=== PATIENT | female | born 1990 | race African-American/Black ===

== ENCOUNTER → 2021-11-03 11:33 | Outpatient (CLI) | payer BC, SELFPAY ==
--- NOTE | ~2021-11-03 | US_ITS ---
EXAMINATION: US transvaginal DATE: 11/03/2021 12:10 INDICATION: Pelvic cramping, assess IUD placement TECHNIQUE: Multiple endovaginal sonographic images of the pelvis were obtained. COMPARISON: None. FINDINGS: The uterus measures 6.7 x 3.2 x 4.9 cm. The IUD appears to be positioned low in the uterus in the lower uterine segment. The endometrial complex measures 4 mm. The right ovary measures 2.6 x 1 .7 x 2.6 cm. The left ovary measures 2.7 x 1.8 x 2.1 cm. There is normal vascular flow in the ovaries . There is no free fluid in the pelvis. IMPRESSION: 1. IUD appears to be positioned in the lower uterine segment. Reviewed, dictated and finalized at location F. NATAL BREASTFEEDING ASSISTANT
== END ==
PROVIDERS: Visit Provider Nurse Practitioner
DX: Z30.431 Encounter for routine checking of intrauterine contraceptive device (principal)
CPT/HCPCS: 76830

== ENCOUNTER 2023-10-17 09:29 | Outpatient (CLI) | payer OTHER, BC, SELFPAY ==
--- NOTE | 2023-10-28 18:53 | WPDHOMESLEEP ---
Sleep Study - Home Unattended Date of Study: 10/17/23 Ordering Provider: JOHN PAUL Kwong-C Interpreting Provider: Trudi Yoon, DO Home Sleep Study Type: Watch PAT Height: 1.65 m Weight: 83.915 kg Body Mass Index: 30.7 Neck Circumference (inches): 14 [place]: 19 Reason for Sleep Study Loud snoring Sleep History The patient is a 33-year-old female with seasonal allergies that had a sleep study ordered by her primary care for evaluation of sleep apnea. The patient rarely awakens from sleep short of breath. She denies awakening at night with heartburn, belching or cough. She constantly snores loudly enough that others complain. She constantly has trouble sleeping when she has a cold. She rarely wakes up gasping for air throughout the night. She frequently has breathing problems at night observed by herself or others. She occasionally sweats excessively at night. She denies having heart palpitations or irregular heartbeats during the night. She constantly falls asleep during the day but never while driving. He denies sleep paralysis, cataplexy and hypnagogic / hypnopompic hallucinations. She constantly has trouble at school or work due to sleepiness. She denies feeling afraid of going to sleep. He denies having nightmares. She occasionally remembers her dreams. She constantly has thoughts racing through her mind. She denies feeling sad, depressed or anxious. She denies having muscular tension. She denies noticing parts of her body jerk. She denies kicking during the night. She denies having crawling and aching feelings in her legs and denies having leg pain during the night. She denies grinding her teeth during sleep and denies awakening with morning jaw pain. She denies being bothered by pain during the day and denies being awakened by pain during the night. He denies waking up feeling stiff in the morning. She denies waking up with sore or achy muscles. She rarely wakes up with pain in the neck, spine and joints. She goes to bed at midnight on weekdays and at 1:00 a.m. on the weekends. It takes her 15 minutes to fall asleep. She wakes up 3-4 times throughout the night to take a drink of water and is able to fall back asleep within 5-10 minutes. She wakes up at 6:00 a.m. on weekdays and at 9:00 a.m. on the weekends. She typically gets 5-6 hours of sleep per night. She will stay in bed for 5-10 minutes after waking up in the morning. She currently lives with her and 2 daughters. She denies consuming any caffeinated beverages within 2 hours of bedtime. She denies engaging in physical exercise before bedtime. She will read and watch television before falling asleep. She will take naps in the evening but they are not refreshing. She consumes caffeinated beverages 3 times per week. She denies tobacco, alcohol and recreational drug [facility] Surgical History Surgical History History of tonsillectomy (~2013) Family History Family History Father Diabetes mellitus Hypertension Mother Hypertension Grandparent Hypertension Grandparent Diabetes mellitus Hypertension Social History Social History Social History: Caffeine- coffee 1 cup daily Smoking status: Never smoker Alcohol intake: never Substance use: never Substance use type: does not use Do You Feel Safe in your Home?: Yes Lack of Transportation: No Lack of Food: Never True Current Housing: I Have Housing Concerned About Future Housing: No Difficulty Paying Gas/Electric Bills: No Difficulty Paying for Meds: No Currently Unemployed: No Education: Master's Degree or Higher Difficulty w/ Childcare or Family Care: No Living arrangements: with family Occupation/Education: occupation 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
[2023-10-28 18:54] VITALS: BMI 30.7
== END 2023-10-20 07:30 | disposition home or self-care (01) ==
LOC: ANHCSM 09:30
PROVIDERS: PCP Clinical Nurse Specialist; Visit Provider Clinical Nurse Specialist
DX: G47.10 Hypersomnia, unspecified (principal)
CPT/HCPCS: 95800

== ENCOUNTER 2024-01-02 08:31 | Outpatient (CLI) | payer OTHER, BC, SELFPAY ==
--- NOTE | 2024-01-12 16:11 | WPDSLEEPSTUD ---
Sleep Study Date of Study: 01/02/24 Ordering Provider: Carolyn Romero NP Interpreting Physician: Trudi Yoon DO Sleep Study Type: Polysomnogram Height: 1.65 m Weight: 83.915 kg Body Mass Index: 30.7 Neck Circumference (inches): 14 [place]: 19 Reason for Sleep Study Loud snoring Sleep History The patient is a 33-year-old female with seasonal allergies that had a sleep study ordered by her primary care for evaluation of sleep apnea. The patient rarely awakens from sleep short of breath. She denies awakening at night with heartburn, belching or cough. She constantly snores loudly enough that others complain. She constantly has trouble sleeping when she has a cold. She rarely wakes up gasping for air throughout the night. She frequently has breathing problems at night observed by herself or others. She occasionally sweats excessively at night. She denies having heart palpitations or irregular heartbeats during the night. She constantly falls asleep during the day but never while driving. He denies sleep paralysis, cataplexy and hypnagogic / hypnopompic hallucinations. She constantly has trouble at school or work due to sleepiness. She denies feeling afraid of going to sleep. He denies having nightmares. She occasionally remembers her dreams. She constantly has thoughts racing through her mind. She denies feeling sad, depressed or anxious. She denies having muscular tension. She denies noticing parts of her body jerk. She denies kicking during the night. She denies having crawling and aching feelings in her legs and denies having leg pain during the night. She denies grinding her teeth during sleep and denies awakening with morning jaw pain. She denies being bothered by pain during the day and denies being awakened by pain during the night. He denies waking up feeling stiff in the morning. She denies waking up with sore or achy muscles. She rarely wakes up with pain in the neck, spine and joints. She goes to bed at midnight on weekdays and at 1:00 a.m. on the weekends. It takes her 15 minutes to fall asleep. She wakes up 3-4 times throughout the night to take a drink of water and is able to fall back asleep within 5-10 minutes. She wakes up at 6:00 a.m. on weekdays and at 9:00 a.m. on the weekends. She typically gets 5-6 hours of sleep per night. She will stay in bed for 5-10 minutes after waking up in the morning. She currently lives with her and 2 daughters. She denies consuming any caffeinated beverages within 2 hours of bedtime. She denies engaging in physical exercise before bedtime. She will read and watch television before falling asleep. She will take naps in the evening but they are not refreshing. She consumes caffeinated beverages 3 times per week. She denies tobacco, alcohol and recreational drug use. [facility] Surgical History Surgical History History of tonsillectomy (~2013) Family History Family History Father Diabetes mellitus Hypertension Mother Hypertension Grandparent Hypertension Grandparent Diabetes mellitus Hypertension Social History Social History Social History: Caffeine- coffee 1 cup daily Smoking status: Never smoker Alcohol intake: never Substance use: never Substance use type: does not use Do You Feel Safe in your Home?: Yes Lack of Transportation: No Lack of Food: Never True Current Housing: I Have Housing Concerned About Future Housing: No Difficulty Paying Gas/Electric Bills: No Difficulty Paying for Meds: No Currently Unemployed: No Education: Master's Degree or Higher Difficulty w/ Childcare or Family Care: No Living arrangements: with family Occupation/Education: occupation 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
[2024-01-13 13:41] VITALS: BMI 30.7
== END 2024-01-03 07:05 | disposition home or self-care (01) ==
LOC: ANHCSM 08:32
PROVIDERS: PCP Clinical Nurse Specialist; Visit Provider Nurse Practitioner
DX: G47.33 Obstructive sleep apnea (adult) (pediatric) (principal); G47.61 Periodic limb movement disorder; G47.10 Hypersomnia, unspecified
CPT/HCPCS: 95810

== ENCOUNTER 2024-01-27 13:10 | Outpatient (CLI) | payer OTHER, BC, SELFPAY | END 2024-01-27 13:11 | disposition home or self-care (01) | LOC: ANHGOSHLAB 13:12 | PROVIDERS: PCP Clinical Nurse Specialist; Visit Provider Clinical Nurse Specialist | DX: G47.61 Periodic limb movement disorder (principal) | CPT/HCPCS: 36415; 82728 ==

== ENCOUNTER 2024-04-23 09:23 | Outpatient (CLI) | payer OTHER, BC, SELFPAY ==
[2024-04-23 18:55] LABS: Vitamin D 25 Hydroxy 41.8 ng/mL
[2024-04-23 19:04] LABS: Hemoglobin A1C 5.7 % (<5.7)
== END 2024-04-23 09:24 | disposition home or self-care (01) ==
LOC: ANHGOSHLAB 09:26
PROVIDERS: PCP Clinical Nurse Specialist; Visit Provider Clinical Nurse Specialist
DX: E55.9 Vitamin D deficiency, unspecified (principal); R73.9 Hyperglycemia, unspecified
CPT/HCPCS: 36415; 82306; 83036

== ENCOUNTER 2024-07-30 12:18 | Outpatient (CLI) | payer OTHER, BC, SELFPAY ==
--- NOTE | ~2024-07-30 | US_ITS ---
EXAMINATION: US OB <= 14 weeks fetus DATE: 07/30/2024 12:34 INDICATION: Encounter for supervision of normal TECHNIQUE: Real-time pelvic ultrasound utilizing both a transvaginal and transabdominal probe was pe rformed. The interpreting radiologist was not present for the study. COMPARISON: None. FINDINGS: The uterus measures 10.9 x 7.5 x 6.5 cm. There is an intrauterine gestational sac. A yolk sac and fe wili pole are identified. The crown rump length measures 2.4 cm, which correlates with an estimated ge stational age of 9 weeks and 0 days. heart motion is identified measuring 167 beats per minute (bpm) by M-mode Doppler. The right ovary is not visualized. The left ovary measures 3.6 x 2.4 x 2.7 cm. 2.6 similar anechoic c orpus luteum cyst in the left ovary. There is no free fluid in the pelvis. IMPRESSION: 1. Single living fetus with heart rate of 167 bpm. 2. Gestational age by ultrasound of 9 weeks 0 day(s) +/- 6 day(s) with ultrasound estimated date of delivery (MIGUEL) of 03/04/2025. Reviewed, dictated and finalized at location B. CE SALES CONSULTANT IMPRESSION: 1. Single living fetus with heart rate of 167 bpm. 2. Gestational age by ultrasound of 9 weeks 0 day(s) +/- 6 day(s) with ultraso und estimated date of delivery (MIGUEL) of 03/04/2025.
== END 2024-07-30 12:19 | disposition home or self-care (01) ==
LOC: GOSHIMG 12:19
PROVIDERS: PCP Clinical Nurse Specialist; Visit Provider Nurse Practitioner Obstetrics & Gynecology
DX: Z34.90 Encounter for supervision of normal pregnancy, unspecified, unspecified trimester (principal)
CPT/HCPCS: 76801

== ENCOUNTER 2024-09-10 11:39 | Outpatient (CLI) | payer OTHER, BC, SELFPAY ==
[2024-09-10 14:52] LABS: Add Urine Microscopic? YES; Appearance Urine Turbid (Clear); Bacteria Urine 2+ /hpf; Bilirubin Urine Negative (Negative); Blood Urine Negative (Negative); Color Urine Dark Yellow (Yellow); Glucose Urine UA Negative (Negative); Ketones Urine Trace mg/dL (Negative); Leukocyte Esterase Ur Negative LEU/UL (Negative); Need Manual Microscopic Reviewed; Nitrate Urine Negative (Negative); Protein Urine Trace mg/dL (Negative); Specific Grav Ur 1.028 (1.001-1.035); Squamous Epithelial Cell Urine Moderate /hpf (Few); Urobilinogen Urine 0.2 mg/dL (<2.0); WBC Urine 0-5 /hpf (0-3); pH Urine 5.5 (5.0-9.0)
[2024-09-10 14:53] LABS: Alanine Aminotransferase 21 U/L (6-35); Albumin Level 3.9 g/dL (3.5-5.1); Alkaline Phosphatase 57 U/L (38-126); Anion Gap 3 mmol/L (4-12); Aspartate Amino Transferase 30 U/L (14-36); Bilirubin,Total 0.5 mg/dL (0.2-1.3); Blood Urea Nitrogen 6 mg/dL (7-17); Calcium 9.1 mg/dL (8.4-10.2); Carbon Dioxide 23 mmol/L (22-30); Chloride 106 mmol/L (98-107); Estimated Glomerular Filt Rate > 60; Glucose 91 mg/dL (65-110); Potassium 3.7 mmol/L (3.4-5.0); RBC Urine 0-2 /hpf (0-2); Sodium 132 mmol/L (137-145); Vitamin D 25 Hydroxy 30.1 ng/mL
[2024-09-10 15:11] LABS: Hepatitis B Surface Antigen Negative (Negative)
[2024-09-10 15:21] LABS: Basophils Percent Auto 0.4 % (0.2-1.2); Eosinophils Absolute Auto 0.1 K/mm3 (0-0.3); Eosinophils Percent Auto 1.4 % (0-4.4); Hematocrit 34.5 % (37.0-47.0); Immature Granulocyte Absolute 0.06 K/mm3 (0.00-0.031); Immature Granulocyte Percent A 0.8 % (0-0.5); Immature Platelet Fraction Pct 2.1 % (0.9-11.2); Lymphocytes Absolute Auto 2.08 K/mm3 (0.9-3.2); Lymphocytes Percent Auto 26.4 % (18.3-44.2); Mean Corpuscular HGB Conc 34.8 g/dl (32-36); Mean Corpuscular Hemoglobin 29.5 pg (26-34); Mean Corpuscular Volume 84.8 fl (80-100); Monocytes Absolute Auto 0.5 K/mm3 (0.1-0.6); Monocytes Percent Auto 6.6 % (2.6-8.5); Neutrophils Absolute Auto 5.1 K/mm3 (1.3-6.7); Neutrophils Percent Auto 64.4 % (45.5-73.1); Platelet Count Result 343 k/mm3 (150-375); Red Blood Count 4.07 M/mm3 (4.2-5.4); Red Cell Distribution Width 12.4 % (11.5-14.5); White Blood Count 7.9 K/mm3 (4.5-10.0)
[2024-09-10 15:28] LABS: Hepatitis C Virus Antibody Negative (Negative)
[2024-09-10 15:44] LABS: Platelet Estimate Adequate (Adequate); Schistocytes None Seen
[2024-09-10 15:53] LABS: Cholesterol 202 mg/dL (0-200); HDL Direct 58 mg/dL; Triglycerides 176 mg/dL (<150)
[2024-09-10 16:00] LABS: HIV 1/2 Ab P24 Ag Result Negative (Negative)
[2024-09-10 16:04] LABS: LDL Cholesterol Direct 96 mg/dL
[2024-09-10 17:56] LABS: Hemoglobin A1C 5.4 % (<5.7)
[2024-09-10 19:20] LABS: Rapid Plasma Reagin Non-Reactive (NonReactive)
[2024-09-13 11:04] LABS: Hematocrit 36.3 % (35.0-45.0); Hemoglobin 11.9 g/dL (11.7-15.5); MCH 29.6 pg (27.0-33.0); MCV 90.3 fL (80.0-100.0); RDW 12.9 % (11.0-15.0); Red Blood Cell Count 4.02 Million/uL (3.80-5.10)
[2024-09-13 19:29] LABS: Varicella IgG Antibody 7.85 S/CO
== END 2024-09-10 11:40 | disposition home or self-care (01) ==
LOC: ANHGOSHLAB 11:42
PROVIDERS: PCP Clinical Nurse Specialist; Visit Provider Obstetrics & Gynecology
DX: E55.9 Vitamin D deficiency, unspecified (principal); Z34.90 Encounter for supervision of normal pregnancy, unspecified, unspecified trimester; R73.9 Hyperglycemia, unspecified
CPT/HCPCS: 36415; 80053; 80061; 81001; 82306; 83021; 83036; 85025; 85055; 86592; 86703; 86762; 86787; 86803; 86850; 86900; 86901; 87086; 87340; G0432

== ENCOUNTER 2024-10-25 08:15 | Outpatient (CLI) | payer BC, SELFPAY ==
--- OUTSIDE RECORDS SUMMARY | 2024-10-25 11:15 | XMS_ITS | Clinical Summary ---
Author Organization [facility] Address [address] [place] [address] Care Team Providers Care Thoracic Medicine Specialist Name Role Phone Treva Salazar MD Primary Care Provider [phone] Source Comments [facility],non-owned Affiliates and Associated Physician Practices is amultiple site organization consisting of ambulatory clinics and hospital sitesin [place], [place], [place] and [place]. This disclosure is being madepursuant to the Care Everywhere program and may not contain all information available regarding this patient. Last updated 05/29/18.25eight [facility] Allergies No known active allergies Medications * Be aware that medications may not be up to date on this document. Alwaysverify current medications with the patient. Medication Sig Dispensed Refills Start Date End Date Status Norethindrone Acet-Ethinyl Est (LOESTRIN 09/27, , PO) once daily. Active Immunizations Name Administration Dates Next Due DPT 04/28/1997, 4,03/06/1993,01/03/1993,07/26/19 92 HEP B VACCINE, PED/ADOL 04/17/2002,05/31/1997, HIB BOOSTER 12/05/1993,03/06/1993,01/03/1993 ,1992 MMR 04/28/1997,12/05/1993 PPD 04/15/2006,04/17/2002 TDAP (7yrs+) 04/15/2006 Social History Tobacco Use Types Packs/Day Years Used Date Smoking Tobacco: Never Assessed Sex and Gender Information Value Date Recorded Sex Assigned at Not on file Gender Identity Not on file Sexual Orientation Not on file Last Filed Vital Signs Vital Sign Reading Time Taken Comments Blood Pressure - - Pulse - - Temperature - - Respiratory Rate - - Oxygen Saturation - - Inhaled Oxygen Concentration - - Weight 60.6 kg (133 lb 9.6 oz) 12/09/2011 4:08 P M CDT Height - - Body Mass Index - - Plan of Treatment Health Maintenance Due Date Last Done Comments PAP SMEAR 1992 HIV SCREENING 2007 HEPATITIS C SCREENING 03/06/2010 DTAP/TDAP/TD VACCINES (7 - Td or Tdap) 04/15/2016 04/15/2006, 04/28/1997, 12/05/1993, Additional history exists COVID-19 VACCINE (2023- season) 2024 INFLUENZA VACCINE (#1) 2024 DEPRESSION SCREENING 09/08/2024 ZOSTER VACCINE (1 of 2) 2042 HIB VACCINE Completed 12/05/1993, 02/07, 01/03/1993, Additional history exists HEPATITIS B VACCINE Completed 04/17/2002, 05/31/1997, 04/28/1997 HPV VACCINE Aged Out No longer eligi ble based on patient's age to complete this topic MENINGOCOCCAL (Group B) VACCINE Aged Out No longer eligible based on patient's age to complete this topic MENINGOCOCCAL VACCINE Aged Out No eliud jessy eligible based on patient's age to complete this topic PNEUMOCOCCAL VACCINE Aged Out No long er eligible based on patient's age to complete this topic Care Teams Thoracic Medicine Specialist Relationship Specialty Start Date End Date Treva Salazar MD PCP - General Pediatrics 12/09/11
--- OUTSIDE RECORDS SUMMARY | 2024-10-25 11:15 | XMS_ITS | Patient Health Summary ---
Author Organization [facility] Address [address] [place] [address] Care Team Providers Care Fashion Artist Name Role Phone Treva Salazar MD Primary Care Provider [phone] Note from [facility],non-owned Affiliates and Associated Physician Practices is amultiple site organization consisting of ambulatory clinics and hospital sitesin [place], [place], [place] and [place]. This disclosure is being madepursuant to the Care Everywhere program and may not contain all information available regarding this patient. Last updated 18.[facility] [employer] Allergies No known active allergies Medications * Be aware that medications may not be up to date on this document. Alwaysverify current medications with the patient. * Norethindrone Acet-Ethinyl Est (LOESTRIN 09/27, , PO) once daily. Immunizations * DPT(Given 04/28/1997, 12/05/1993, 03/06/1993, 01/03/1993, 1992) * HEP B VACCINE, PED/ADOL(Given 04/17/2002, 05/31/1997, 04/28/1997) * HIB BOOSTER(Given 12/05/1993, 03/06/1993, 01/03/1993, 1992) * MMR(Given 04/28/1997, 12/05/1993) * PPD(Given 04/15/2006, 04/17/2002) * TDAP (7yrs+)(Given 04/15/2006) Social History Tobacco Use Types Packs/Day Years [...] - - Body Mass Index - - Care Teams Fashion Artist Relationship Specialty Start Date End Date Treva Salazar MD PCP - General Pediatrics 12/09/11
--- OUTSIDE RECORDS SUMMARY | 2024-10-25 11:15 | XMS_ITS | Clinical Summary ---
Author Organization [facility] [address] - [address]22 Address [address] [address] Phone Care Team Providers Care Rubberizing Mechanic Name Role Phone Unavailable Primary Care Provider Unavailabl e Encounters Date Type Department Care Team Description 10/19/2024 External Device Data STL ABSTRACTION Provider, Abstract 10/19/2024 External Device Data STL ABSTRACTION Provider, Abstract 10/19/2024 External Device Data STL ABSTRACTION Provider, Abstract 10/18/2024 10:45 AM BARGE LOADER - 10/18/2024 11:59 PM BARGE LOADER Hospital Encounter [facility] 2022 Lani Caceres [address] [place] [phone] Arnoldo Ortiz MD Discharge Disposition: Home or Self Care from Last 3 Months Social History Tobacco Use Types Packs/Day Years Used Date Smoking Tobacco: Never Assessed Comments Unknown Sex and Gender Information Value Date Recorded Sex Assigned at Not on file Legal Sex Female 11:45 AM CDT Gender Identity Not on file Sexual Orientation Not on file Plan of Treatment Upcoming Encounters Date Type Department Care Team (Late st Contact Info) Description 11/15/2024 10:30 AM CDT Appointment [facility] Lani Caceres [address] [place] [phone] Vera Beasley MD [address] [place] [address] Health Maintenance Due Date Last Done Comments CERVICAL CANCER SCREENING 2022 INFLUENZA VACCINE (#1) 2024 08/10/2019 Preventative Visit- Commercial 09/08/2024 DTAP/TDAP/TD VACCINES (3 - T d or Tdap) 12/16/2029 12/17/2019, 04/15/2006 HEPATITIS B VACCINES Completed 04/17/2002, 05/31/1997, 04/28/1997 HPV VACCINES Aged Out No longer shania quintanilla based on patient's age to complete this topic Procedures Procedure Name Priority Date/Time Associated Diagnosis Comments US OB DETAIL SINGLE GEST Routine 10/18/2024 1:41 PM BARGE LOADER screening for malformation using ultrasonics from Last 3 Months Results * US OB DETAIL SINGLE GEST (10/18/2024 1:41 PM BARGE LOADER) Anatomical Region Laterality Modality Pelvis Ultrasound 10/18/2024 10:5 9 AM BARGE LOADER Narrative 10/18/2024 12:48 PM BARGE LOADER STL COMP ----- Pat. Name: ODESSA HOGAN Study Date: 10/18/2024 10:59am Pat. NO: [id number] Referring MD: ARNOLDO ORTIZ MD Site: [employer] Sales Engineer: Sarah Shah RDMS : 1990 Age: 34 ----- INDICATION ----- Anatomy Survey Maternal Obesity (BMI<40) Complicating CODING ----- Diagnoses Z3A.20: Weeks of gestation O99.212: Obesity complicating Z36.3: Encounter for screening for malformations Procedures 55094: Ultrasound, uterus, real time with image documentation, and maternal evaluation plus detailed anatomic examination, transabdominal approach HISTORY ----- OB History 1 MATERNAL ASSESSMENT ----- Physical Exam Weight 86 kg. BMI 31.62 kg/m METHOD ----- Transabdominal ultrasound examination ----- Gentile . Number of fetuses: 1 DATING ----- Method of dating: based on stated MIGUEL GA by prior assessment 20 w + 4 d MIGUEL by prior assessment: 03/03/2025 Ultrasound examination on: 10/18/2024 GA by U/S based upon: AC, BPD, EFW, Femur, HC GA by U/S 21 w + 1 d MIGUEL by U/S: 02/27/2025 Assigned: based on stated MIGUEL, selected on 10/18/2024 Assigned GA 20 w + 4 d Assigned MIGUEL: 03/03/2025 BIOMETRY ----- BPD 47.9 mm 20w 3d 46% Hadlock OFD 66.5 mm 22w 3d 95% Megan HC 186.0 mm 21w 0d 58% Hadlock Cerebellum tr 22.4 mm 21w 5d 79% Díaz Nuchal fold 4.2 mm AC 171.7 mm 22w 1d 88% Hadlock Femur 34.0 mm 20w 5d 45% Hadlock Humerus 35.2 mm 22w 1d 92% Megan HC / AC 1.08 8% Nicolaides Weight Calculation: EFW 420 g 21w 2d 85% Hadlock EFW (lb,oz) 0 lb 15 oz EFW by Hadlock ([id number]) Head / Face / Neck Biometry: River Rafting Guide 4.8 mm CM 3.4 mm 6% Nicolaides Outer IOD 31.8 mm 20w 3d 22% Megan Extremities / Bony Struc Biometry: FL / BPD 0.71 47% Hadlock FL / HC 0.18 17% Hadlock FL / AC 0.20 4% Hadlock GENERAL EVALUATION ----- Cardiac activity present. FHR 141 bpm. movements: present. Presentation: Variable Placenta: Placental site: anterior Umbilical cord: Cord vessels: 3 vessel cord. Insertion site: placental insertion: normal Amniotic fluid: Amount of AF: normal amount. MVP 7.9 cm ANATOMY ----- The following structures appear normal: Head / Neck Cranium. Lateral ventricles. Choroid plexus. Midline falx. Cavum septi pellucidi. Cerebellum. Cisterna magna. Nuchal fold. Face Lips. Profile. Nose. Palate. Orbits. Heart / Thorax 4-chamber view. RVOT view. LVOT view. 3-vessel view. 4-sgkyii-egtqpta view. Situs. Aortic arch view. Ductal arch view. Superior vena cava. Inferior vena cava. High short axis view. Cardiac rhythm. Diaphragm. Abdomen Abdominal wall. Stomach. Kidneys. Bladder. Spine Cervical spine. Thoracic spine. Lumbar spine. Sacral spine. Extremities / Arms. Right hand. Left hand. Legs. Right foot. Left foot. Skeleton MATERNAL STRUCTURES ----- Cervix Visualized Approach - Transabdominal: Cervical length 45.7 mm Right Ovary Visualized Left Ovary Visualized GROWTH OVERVIEW ----- Exam date GA BPD (mm) HC (mm) AC (mm) FL (mm) HL (mm) EFW (g) 10/18/2024 20w 4d 47.9 46% 186.0 58% 171.7 88% 34.0 45% 35.2 92% 420 85% COMMENT ----- Patient's name and date of were verified by the bleach mixer before the exam IMPRESSION ----- Summary of Findings: A detailed anatomic survey was performed. Ultrasound was used to both evaluate structural abnormalities and to evaluate more subtle features of the face and extremities that could indicate aneuploidy. Detailed anatomic survey was performed due to maternal obesity. 1. Single living fetus with gestational age of 20w 4d, (MIGUEL = 03/03/2025), based on the reported clinical dates. 2. Detailed anatomic survey is complete. No structural abnormalities are identified. 3. The amniotic fluid volume is HIGH NORMAL with maximum vertical pocket of 7.9 cm. 4. Estimated weight is 420 g (85%ile). 5. Placenta is anterior; no previa. Normal cord insert. 6. Cervical length measurement is 45.7 mm. The presence of a normal anatomic survey does not rule out genetic, chromosomal or structural anomalies. Recommendation: - Correlate high normal amniotic fluid with gestational diabetes screening. - Follow up ultrasound for growth and amniotic fluid in 4 weeks. Thank you for inviting us to participate in your patient's care. Procedure Note Vera Beasley MD - 10/20/2024 STL COMP ----- Pat. Name:Jordon HOGAN Date:10/18/2024 10:59am Pat. NO: [id number] MD:ARNOLDO ORTIZ MD [facility] RDMS :1990Age:34 ----- INDICATION ----- Anatomy Survey Maternal Obesity (BMI<40) Complicating CODING ----- Diagnoses Z3A.20: Weeks of gestation O99.212: Obesity complicating Z36.3: Encounter for screening formalformations Procedures 41520: Ultrasound, uterus, real time withimage documentation, and maternal evaluation plus detailed anatomic examination,transabdominal approach HISTORY ----- OB History 1 MATERNAL ASSESSMENT ----- Physical Exam Weight 86 kg. BMI 31.62 kg/m METHOD ----- Transabdominal ultrasound examination ----- Gentile . Number of fetuses: 1 DATING ----- Method of dating:based on stated MIGUEL GA by prior [id number] w + 4 d MIGUEL by prior assessment:03/03/2025 Ultrasound examination on:10/18/2024 GA by U/S based upon:AC, BPD, EFW, Femur, HC GA by U/S21 w + 1 d MIGUEL by U/S:02/27/2025 Assigned:based on stated MIGUEL, selected on 10/18/2024 Assigned GA20 w + 4 d Assigned MIGUEL:03/03/2025 BIOMETRY ----- BPD 47.9 mm 20w 3d46% Hadlock OFD 66.5 mm 22w 3d95% Megan HC 186.0 mm 21w 0d58% Hadlock Cerebellum tr 22.4 mm 21w 5d79% Díaz Nuchal fold 4.2 mm AC 171.7 mm 22w 1d88% Hadlock Femur 34.0 mm 20w 5d45% Hadlock Humerus 35.2 mm 22w 1d92% Megan HC / AC 1.08 8%Nicolaides Weight Calculation: EFW 420 g 21w 2d 85%Hadlock EFW (lb,oz) 0 lb 15 oz EFW by Hadlock ([id number]-FL) Head / Face / Neck Biometry: River Rafting Guide 4.8 mm CM 3.4 mm 6%Nicolaides Outer IOD 31.8 mm 20w 3d 22%Megan Extremities / Bony Struc Biometry: FL / BPD 0.71 47%Hadlock FL / HC 0.18 17%Hadlock FL / AC 0.20 4%Hadlock GENERAL EVALUATION ----- Cardiac activity present. FHR 141 bpm. movements: present.Presentation: Variable Placenta: Placental site: anterior Umbilical cord: Cord vessels: 3 vessel cord. Insertion site: placentalinsertion: normal Amniotic fluid: Amount of AF: normal amount. MVP 7.9 cm ANATOMY ----- The following structures appear normal: Head / Neck Cranium. Lateral ventricles. Choroid plexus.Midline falx. Cavum septi pellucidi. Cerebellum. Cisterna magna. Nuchal fold. Face Lips. Profile. Nose. Palate. Orbits. Heart / Thorax 4-chamber view. RVOT view. LVOT view. 3-vesselview. 7-ddtiex-iguplmh view. Situs. Aortic arch view. Ductal arch view. Superior vena cava. Inferiorvena cava. High short axis view. Cardiac rhythm. Diaphragm. Abdomen Abdominal wall. Stomach. Kidneys. Bladder. Spine Cervical spine. Thoracic spine. Lumbar spine.Sacral spine. Extremities / Arms. Right hand. Left hand. Legs. Right foot.Left foot. Skeleton MATERNAL STRUCTURES ----- Cervix Visualized Approach - Transabdominal: Cervical length 45.7mm Right Ovary Visualized Left Ovary Visualized GROWTH OVERVIEW ----- Exam date GA BPD (mm) HC (mm) AC (mm) FL(mm) HL (mm) EFW (g) 10/18/2024 20w 4d 47.9 46% 186.0 58% 171.7 88%34.0 45% 35.2 92% 420 85% COMMENT ----- Patient's name and date of were verified by the bleach mixer beforethe exam IMPRESSION ----- Summary of Findings: A detailed anatomic survey was performed.Ultrasound was used to both evaluate structural abnormalities and to evaluate more subtle features of the face andextremities that could indicate aneuploidy. Detailed anatomic survey was performed due to maternal obesity. 1. Single living fetus with gestational age of 20w 4d, (MIGUEL = 03/03/2025),based on the reported clinical dates. 2. Detailed anatomic survey is complete. No structural abnormalitiesare identified. 3. The amniotic fluid volume is HIGH NORMAL with maximum vertical pocketof 7.9 cm. 4. Estimated weight is 420 g (85%ile). 5. Placenta is anterior; no previa. Normal cord insert. 6. Cervical length measurement is 45.7 mm. The presence of a normal anatomic survey does not rule out genetic,chromosomal or structural anomalies. Recommendation: - Correlate high normal amniotic fluid with gestational diabetesscreening. - Follow up ultrasound for growth and amniotic fluid in 4 weeks. Thank you for inviting us to participate in your patient's care. us Arnoldo Ortiz MD ORDERABLES Edited Result - Final from Last 3 Months Insurance [facility] FEDERAL [facility] [employer] ACCESS CHOICE [facility]
--- OUTSIDE RECORDS SUMMARY | 2024-10-25 11:15 | XMS_ITS | Referral Summary ---
Author Organization [facility] [email or web address] Address [address] [place] [address] Care Team Providers Care Magnetic Tape Composer Operator Name Role Phone Treva Salazar MD Primary Care Provider [phone] Source Comments [facility] [email or web address],non-owned Affiliates and Associated Physician Practices is amultiple site organization consisting of ambulatory clinics and hospital sitesin [place], [place], [place] and [place]. This disclosure is being madepursuant to the Care Everywhere program and may not contain all information available regarding this patient. Last updated 18.[email or web address] Allergies No known active allergies Medications * [...] Mass Index - - Plan of Treatment Not on file Care Teams Magnetic Tape Composer Operator Relationship Specialty Start Date End Date Treva Salazar MD PCP - General Pediatrics 12/09/11
[2024-10-25 15:09] LABS: Glucose 1 Hour PP 50gm Dose 178 mg/dL
== END 2024-10-25 08:16 | disposition home or self-care (01) ==
LOC: ANHGOSHLAB 08:16
PROVIDERS: PCP Clinical Nurse Specialist; Visit Provider Nurse Practitioner Obstetrics & Gynecology
DX: Z34.90 Encounter for supervision of normal pregnancy, unspecified, unspecified trimester (principal)
CPT/HCPCS: 36415; 82947

== ENCOUNTER 2024-11-05 09:18 | Outpatient (CLI) | payer BC, SELFPAY ==
[2024-11-05 09:46] LABS: Glucose Point of Care 92 mg/dl (65-105)
[2024-11-05 18:34] LABS: Glucose 2 Hour Gest 153 mg/dL (>/= 155)
[2024-11-05 18:38] LABS: Glucose 3 Hour Gest 137 mg/dL (>/=140)
[2024-11-05 18:38] LABS: Glucose 1 Hour Gest 151 mg/dL (>/=180)
== END 2024-11-05 09:19 | disposition home or self-care (01) ==
LOC: ANHGOSHLAB 09:20
PROVIDERS: PCP Clinical Nurse Specialist; Visit Provider Nurse Practitioner Obstetrics & Gynecology
DX: O99.810 Abnormal glucose complicating pregnancy (principal); Z3A.00 Weeks of gestation of pregnancy not specified
CPT/HCPCS: 36415; 82948; 82951; 82952

== ENCOUNTER 2025-01-10 09:49 | Outpatient (CLI) | payer BC, SELFPAY ==
[2025-01-10 10:11] LABS: Glucose Point of Care 96 mg/dl (65-105)
--- OUTSIDE RECORDS SUMMARY | 2025-01-10 10:33 | XMS_ITS | Clinical Summary ---
Author Organization [facility] [address] Address [address] [address] Phone Care Team Providers Care Ribbon Hand Name Role Phone Unavailable Primary Care Provider Unavailabl e Encounters Date Type Department Care Team Description 12/13/2024 10:00 AM CDT - 12/13/2024 11:59 PM CDT Hospital Encounter [facility] 2022 Lani C[address]res [address] [place] [phone] Miriam Greene MD Discharge Disposition: Home or Self Care 12/07/2024 External Device Data STL ABSTRACTION Provider, Abstract 11/15/2024 10:30 AM CDT - 11/15/2024 11:59 PM CDT Hospital Encounter [facility] Lani Caceres [address] [place] [phone] Vera Beasley MD Discharge Disposition: Home or Self Care 11/13/2024 External Device Data STL ABSTRACTION Provider, Abstract 11/12/2024 External Device Data STL ABSTRACTION Provider, Abstract 11/10/2024 External Device Data STL ABSTRACTION Provider, Abstract 10/27/2024 External Device Data STL ABSTRACTION Provider, Abstract 10/19/2024 External Device Data STL ABSTRACTION Provider, Abstract 10/19/2024 External Device Data STL ABSTRACTION Provider, Abstract 10/19/2024 External Device Data STL ABSTRACTION Provider, Abstract 10/18/2024 10:45 AM BILLING AND QUALITY TECHNICIAN - 10/18/2024 11:59 PM BILLING AND QUALITY TECHNICIAN Hospital Encounter [facility] Lani Caceres [address] [place] [phone] Arnoldo Ortiz MD Discharge Disposition: Home or Self Care from Last 3 Months Social History Tobacco Use Types Packs/Day Years Used Date Smoking Tobacco: Never Assessed Comments Unknown Sex and Gender Information Value Date Recorded Sex Assigned at Not on file Legal Sex Female 11:45 AM CDT Gender Identity Not on file Sexual Orientation Not on file Plan of Treatment Health Maintenance Due Date Last Done Comments HPV/Cotest (21-29) 2013 CERVICAL CANCER SCREENING 2022 HPV/Cotest (30-65) 2022 PAP SMEAR 2022 INFLUENZA VACCINE (#1) 2024 08/10/2019 DTAP/TDAP/TD VACCINES (3 - Td or Tdap) 12/16/2029 12/17/2019, 04/15/2006 HEPATITIS B VACCINES Completed 04/17/2002, 05/31/1997, 04/28/1997 HPV VACCINES Aged Out No longer eligi ble based on patient's age to complete this topic Procedures Procedure Name Priority Date/Time Associated Diagnosis Comments US OB FOLLOW UP PER FETUS Routine 12/13/2024 10:35 AM CDT Encounter for ultrasound to check growth US OB FOLLOW UP PER FETUS Routine 11/15/2024 11:04 AM CDT Encounter for other screening follow-up US OB DETAIL SINGLE GEST Routine 10/18/2024 1:41 PM BILLING AND QUALITY TECHNICIAN screening for malformation using ultrasonics from Last 3 Months Results * US OB FOLLOW UP PER FETUS (12/13/2024 10:35 AM CDT) Only the most recent of2 resultswithin the time period is included. Anatomical Region Laterality Modality Pelvis Ultrasound 12/13/2024 10:1 3 AM CDT Narrative 12/13/2024 10:58 AM CDT STL FOLLOW UP ----- Pat. Name: ODESSA HOGAN Study Date: 12/13/2024 10:13am Pat. NO: [id number] Referring MD: ARNOLDO ORTIZ MD Site: [facility] Senior Administrative Associate: Penny Bridges RDMS : 1990 Age: 34 ----- INDICATION ----- Screening Follow-Up Maternal Obesity (BMI<40) Complicating CODING ----- Diagnoses Z3A.28: Weeks of gestation O99.213: Obesity complicating Z3A.28: Weeks of gestation Z36.2: Encounter for other screening follow-up O99.213: Obesity complicating Procedures 73032: Ultrasound, uterus, real time with image documentation, follow up, transabdominal approach per fetus HISTORY ----- OB History 3. Para 2 T2L2 MATERNAL ASSESSMENT ----- Physical Exam Weight 91 kg. BMI 33.28 kg/m METHOD ----- Transabdominal ultrasound examination ----- Gentile . Number of fetuses: 1 DATING ----- GA by prior assessment 28 w + 3 d MIGUEL by prior assessment: 03/04/2025 Ultrasound examination on: 12/13/2024 GA by U/S based upon: AC, BPD, EFW, Femur, HC GA by U/S 29 w + 2 d MIGUEL by U/S: 02/26/2025 Method of dating: Restore dating from previous exam Assigned: based on stated MIGUEL, selected on 10/18/2024 Assigned GA 28 w + 4 d Assigned MIGUEL: 03/03/2025 BIOMETRY ----- BPD 70.0 mm 28w 1d 24% Hadlock OFD 94.5 mm 30w 4d 91% Megan HC 263.2 mm 28w 4d 20% Hadlock AC 264.9 mm 30w 4d 93% Hadlock Femur 56.7 mm 29w 5d 70% Hadlock HC / AC 0.99 5% Nicolaides Weight Calculation: EFW 1,483 g 29w 4d 85% Hadlock EFW (lb,oz) 3 lb 4 oz EFW by Hadlock ([id number]-FL) Extremities / Bony Struc Biometry: FL / BPD 0.81 FL / HC 0.22 FL / AC 0.21 GENERAL EVALUATION ----- Cardiac activity present. FHR 138 bpm. movements: present. Presentation: cephalic Placenta: Placental site: anterior Umbilical cord: Cord vessels: 3 vessel cord. Insertion site: placental insertion: normal Amniotic fluid: Amount of AF: normal amount. MVP 6.3 cm. HAYDE 18.6 cm. Q1 6.3 cm, Q2 2.8 cm, Q3 3.7 cm, Q4 5.8 cm ANATOMY ----- The following structures appear normal: Head / Neck Cranium. Lateral ventricles. Choroid plexus. Midline falx. Cavum septi pellucidi. Cerebellum. Cisterna magna. Face Profile. Heart / Thorax 4-chamber view. RVOT view. LVOT view. Diaphragm. Abdomen Stomach. Kidneys. Bladder. GROWTH OVERVIEW ----- Exam date GA BPD (mm) HC (mm) AC (mm) FL (mm) HL (mm) EFW (g) 10/18/2024 20w 4d 47.9 46% 186.0 58% 171.7 88% 34.0 45% 35.2 92% 420 85% 11/15/2024 24w 4d 59.9 37% 220.3 15% 225.6 96% 45.8 57% 866 91% 12/13/2024 28w 4d 70.0 24% 263.2 20% 264.9 93% 56.7 70% 1,483 85% COMMENT ----- Patient's name and date of were verified by the knock up assembler prior to the exam IMPRESSION ----- Gentile @ 28w 4d complicated by high normal fluid on last scan. - The biometry is consistent with dates with the EFW at the 85% percentile. - Amniotic fluid indices are within normal limits. - Limited anatomy is unremarkable. A follow up is recommended at 32-36 weeks to check growth and fluid. Thank you for allowing us to participate in the care of this patient. Procedure Note Miriam Greene MD - 12/13/2024 STL FOLLOW UP ----- Pat. Name:Jordon HOGAN Date:12/13/2024 10:13am Pat. NO: [id number] :ARNOLDO ORTIZ MD [facility]Penny Bridges RDMS :1990Age:34 ----- INDICATION ----- Screening Follow-Up Maternal Obesity (BMI<40) Complicating CODING ----- Diagnoses Z3A.28: Weeks of gestation O99.213: Obesity complicating Z3A.28: Weeks of gestation Z36.2: Encounter for other screeningfollow-up O99.213: Obesity complicating Procedures 61082: Ultrasound, uterus, real time withimage documentation, follow up, transabdominal approach per fetus HISTORY ----- OB History 3. Para 2 T2L2 MATERNAL ASSESSMENT ----- Physical Exam Weight 91 kg. BMI 33.28 kg/m METHOD ----- Transabdominal ultrasound examination ----- Gentile . Number of fetuses: 1 DATING ----- GA by prior [id number] w + 3 d MIGUEL by prior assessment:03/04/2025 Ultrasound examination on:12/13/2024 GA by U/S based upon:AC, BPD, EFW, Femur, HC GA by U/S29 w + 2 d MIGUEL by U/S:02/26/2025 Method of dating:Restore dating from previous exam Assigned:based on stated MIGUEL, selected on 10/18/2024 Assigned GA28 w + 4 d Assigned MIGUEL:03/03/2025 BIOMETRY ----- BPD 70.0 mm 28w 1d 24%Hadlock OFD 94.5 mm 30w 4d 91%Megan HC 263.2 mm 28w 4d 20%Hadlock AC 264.9 mm 30w 4d 93%Hadlock Femur 56.7 mm 29w 5d 70%Hadlock HC / AC 0.99 5%Nicolaides Weight Calculation: EFW 1,483 g 29w 4d85% Hadlock EFW (lb,oz) 3 lb 4 oz EFW by Hadlock ([id number]-FL) Extremities / Bony Struc Biometry: FL / BPD 0.81 FL / HC 0.22 FL / AC 0.21 GENERAL EVALUATION ----- Cardiac activity present. FHR 138 bpm. movements: present.Presentation: cephalic Placenta: Placental site: anterior Umbilical cord: Cord vessels: 3 vessel cord. Insertion site: placentalinsertion: normal Amniotic fluid: Amount of AF: normal amount. MVP 6.3 cm. HAYDE 18.6 cm. Q16.3 cm, Q2 2.8 cm, Q3 3.7 cm, Q4 5.8 cm ANATOMY ----- The following structures appear normal: Head / Neck Cranium. Lateral ventricles. Choroid plexus.Midline falx. Cavum septi pellucidi. Cerebellum. Cisterna magna. Face Profile. Heart / Thorax 4-chamber view. RVOT view. LVOT view. Diaphragm. Abdomen Stomach. Kidneys. Bladder. GROWTH OVERVIEW ----- Exam date GA BPD (mm) HC (mm) AC (mm) FL(mm) HL (mm) EFW (g) 10/18/2024 20w 4d 47.9 46% 186.0 58% 171.7 88%34.0 45% 35.2 92% 420 85% 11/15/2024 24w 4d 59.9 37% 220.3 15% 225.6 96%45.8 57% 866 91% 12/13/2024 28w 4d 70.0 24% 263.2 20% 264.9 93%56.7 70% 1,483 85% COMMENT ----- Patient's name and date of were verified by the knock up assembler prior tothe exam IMPRESSION ----- Gentile @ 28w 4d complicated by high normal fluid on lastscan. - The biometry is consistent with dates with the EFW at the 85%percentile. - Amniotic fluid indices are within normal limits. - Limited anatomy is unremarkable. A follow up is recommended at 32-36 weeks to check growth andfluid. Thank you for allowing us to participate in the care of this patient. us Miriam Greene MD US ORDERABLES Final Result * US OB DETAIL SINGLE GEST (10/18/2024 1:41 PM BILLING AND QUALITY TECHNICIAN) Anatomical Region Laterality Modality Pelvis Ultrasound 10/18/2024 10:5 9 AM BILLING AND QUALITY TECHNICIAN Narrative 10/18/2024 12:48 PM BILLING AND QUALITY TECHNICIAN STL COMP ----- Pat. Name: ODESSA HOGAN Study Date: 10/18/2024 10:59am Pat. NO: [id number] Referring MD: ARNOLDO ORTIZ MD Site: [facility] Senior Administrative Associate: Sarah Shah RDMS : 1990 Age: 34 ----- INDICATION ----- Anatomy Survey Maternal Obesity (BMI<40) Complicating CODING ----- Diagnoses Z3A.20: Weeks of gestation O99.212: Obesity complicating Z36.3: Encounter for screening for malformations Procedures 89709: Ultrasound, uterus, real time with image documentation, [...] 0 lb 15 oz EFW by Hadlock ([id number]-FL) Head / Face / Neck Biometry: Infusion Rn 4.8 mm CM 3.4 mm 6% Nicolaides [...] view. RVOT view. LVOT view. 3-vessel view. 8-aactei-cqnqyzn view. Situs. Aortic arch view. Ductal arch [...] and date of were verified by the knock up assembler before the exam IMPRESSION ----- Summary of [...] Pat. Name:Jordon HOGAN Date:10/18/2024 10:59am Pat. NO: [id number] MD:ARNOLDO ORTIZ MD [facility]Sarah Shah RDMS :1990Age:34 ----- INDICATION ----- Anatomy Survey Maternal Obesity (BMI<40) Complicating CODING ----- Diagnoses Z3A.20: Weeks of gestation O99.212: Obesity complicating Z36.3: Encounter for screening formalformations Procedures 28142: Ultrasound, uterus, real time withimage documentation, and maternal evaluation plus detailed anatomic examination,transabdominal approach HISTORY ----- OB History 1 MATERNAL ASSESSMENT ----- Physical Exam Weight 86 kg. BMI 31.62 kg/m METHOD ----- Transabdominal ultrasound examination ----- Gentile . Number of fetuses: 1 DATING ----- Method of dating:based on stated MIGUEL GA by prior [id number] w + 4 d MIGUEL by prior [...] 0 lb 15 oz EFW by Hadlock ([id number]-FL) Head / Face / Neck Biometry: Infusion Rn 4.8 mm CM 3.4 mm 6%Nicolaides Outer [...] 4-chamber view. RVOT view. LVOT view. 3-vesselview. 8-yjlnak-hslnytf view. Situs. Aortic arch view. Ductal arch [...] and date of were verified by the knock up assembler beforethe exam IMPRESSION ----- Summary of Findings: [...] your patient's care. us Arnoldo Ortiz MD US ORDERABLES Edited Result - Final from Last 3 Months Insurance [employer] [facility]
--- OUTSIDE RECORDS SUMMARY | 2025-01-10 10:33 | XMS_ITS | Clinical Summary ---
Author Organization [facility] Slated Address [address] [place] [address] Care Team Providers Care Servicenow Administrator Developer Name Role Phone Treva Salazar MD Primary Care Provider [phone] Source Comments [facility],non-owned Affiliates and Associated Physician Practices is amultiple site organization consisting of ambulatory clinics and hospital sitesin [place], [place], [place] and [place]. This disclosure is being madepursuant to the Care Everywhere program and may not contain all information available regarding this patient. Last updated 18.[facility] Allergies No known active allergies Medications * Be aware that medications may not be up to date on this document. Alwaysverify current medications with the patient. Norethindrone Acet-Ethinyl Est (LOESTRIN 09/27, 21, PO) once daily. Active Immunizations Immunization Administration Dates Next Due DPT 04/28/1997, 4,03/06/1993,01/03/1993,07/26/19 92 HEP B VACCINE, PED/ADOL 04/17/2002,05/31/1997, HIB BOOSTER 12/05/1993,03/06/1993,01/03/1993 ,1992 MMR 04/28/1997,12/05/1993 PPD 04/15/2006,04/17/2002 TDAP (7yrs+) 04/15/2006 Social History Tobacco Use Types Packs/Day Years Used Date Smoking Tobacco: Never Assessed Comments Unknown Sex and Gender Information Value Date Recorded Sex Assigned at Not on file Legal Sex Female 6:56 AM LOAD DISPATCHER LOCAL Gender Identity Not on file Sexual Orientation [...] Health Maintenance Due Date Last Done Comments HIV SCREENING 2007 HEPATITIS C SCREENING 03/06/2010 DTAP/TDAP/TD VACCINES (7 - Td or Tdap) 04/15/2016 04/15/2006, 04/28/1997, 12/05/1993, Additional history exists COVID-19 VACCINE ( season) 2024 DEPRESSION SCREENING 09/08/2024 INFLUENZA VACCINE (Season Ended) 2025 ZOSTER VACCINE (1 of 2) 2042 HIB VACCINE Completed 12/05/1993, 02/07, 01/03/1993, Additional history exists HEPATITIS B VACCINE Completed 04/17/2002, 05/31/1997, 04/28/1997 HPV VACCINE Aged Out No longer eligi ble based on patient's age to complete this topic MENINGOCOCCAL (Group B) VACCINE SHARED DECISION-MAKING Aged Out No longer eligible based on patient's age to complete this topic MENINGOCOCCAL GROUPS A/C/Y/W VACCINE Aged Out No longer eligible based on patient's age to complete this topic PNEUMOCOCCAL VACCINE Aged Out No long er eligible based on patient's age to complete this topic Insurance * Guarantor: GILMA HOGAN Account Type Relation to Patient Date of Phone Billing Address Personal/Family 1990 [address] [place] [address] [employer] Care Teams Servicenow Administrator Developer Relationship Specialty Start Date End Date Treva Salazar MD PCP - General Pediatrics 12/09/11
[2025-01-10 12:34] LABS: Hematocrit 34.8 % (37.0-47.0); Hemoglobin 11.5 g/dL (12.0-15.0); Mean Corpuscular Hemoglobin 27.8 pg (26-34); Mean Corpuscular Volume 84.3 fl (80-100); Mean Platelet Volume 9.4 fl (7.4-10.4); Platelet Count Result 290 k/mm3 (150-375); Red Blood Count 4.13 M/mm3 (4.2-5.4); Red Cell Distribution Width 13.1 % (11.5-14.5); White Blood Count 6.8 K/mm3 (4.5-10.0)
[2025-01-10 12:49] LABS: Glucose 2 Hour Gest 191 mg/dL (>/= 155)
[2025-01-10 13:01] LABS: Glucose 1 Hour Gest 198 mg/dL (>/=180)
[2025-01-10 14:20] LABS: HIV 1/2 Ab P24 Ag Result Negative (Negative)
[2025-01-10 14:58] LABS: Syphilis IgG/IgM Antibody Negative (Negative)
[2025-01-10 19:48] LABS: Glucose 3 Hour Gest 119 mg/dL (>/=140)
== END 2025-01-10 09:50 | disposition home or self-care (01) ==
LOC: ANHGOSHLAB 09:50
PROVIDERS: PCP Nurse Practitioner Obstetrics & Gynecology; Visit Provider Nurse Practitioner Obstetrics & Gynecology
DX: Z34.90 Encounter for supervision of normal pregnancy, unspecified, unspecified trimester (principal)
CPT/HCPCS: 36415; 82948; 82951; 82952; 85027; 86593; 86703; G0432

== ENCOUNTER 2025-01-17 13:48 | Outpatient (CLI) | payer BC, SELFPAY ==
--- NOTE | ~2025-01-17 | US_ITS ---
EXAMINATION: US OB follow up DATE: 01/17/2025 14:08 INDICATION: Maternal carrier for excessive growth during third trimester of TECHNIQUE: Real-time ultrasound of the pelvis was performed. The interpreting radiologist was not pre sent for the study. COMPARISON: 07/30/2024 FINDINGS: There is a single living fetus in vertex presentation. The placenta is anterior and not low-lying. F etal heart rate is 141 beats per minute (bpm). The amniotic fluid index is 13.2 cm, which is normal (5th%-95%: 8.3-24.5 cm at 33 weeks estimated gestational age). The following biometric data were obtained: BPD: 8.3 cm -> 33 weeks 2 days Head circumference: 30.0 cm -> 33 weeks 2 days Abdominal circumference: 32.2 cm -> 36 weeks 1 days Femur length: 6.8 cm -> 35 weeks 0 days Head circumference to abdominal circumference ratio: 0.93 (normal range 0.94-1.11). Estimated weight: 2621 g (+/-) 393 g or 5 lbs. 12 oz. (+/-) 14 oz. IMPRESSION: 1. Single living fetus in vertex presentation with heart rate of 141 bpm. 2. Normal amniotic fluid index of 13.2 cm. 3. Estimated weight is 90th percentile by Hadlock criteria when 03/04/2025 is used as the estima ibrahima date of delivery (MIGUEL). Please correlate with clinical information or earlier ultrasounds for mos t accurate MIGUEL. 4. Head circumference to abdominal circumference ratio slightly below the normal range. Reviewed, dictated and finalized at location A. IMPRESSION: 1. Single living fetus in vertex presentation with heart rate of 141 bpm. 2. Normal amniotic fluid index of 13.2 cm. 3. Estimated weight is 90th percentile by Hadlock criteria when 03/04/2025 is used as the estimated date of delivery (MIGUEL). Please correlate with clinica l information or earlier ultrasounds for most accurate MIGUEL. 4. Head circumference to abdominal circumference ratio slightly below the tyler l range.
== END 2025-01-17 13:49 | disposition home or self-care (01) ==
LOC: GOSHIMG 13:48
PROVIDERS: PCP Obstetrics & Gynecology; Visit Provider Obstetrics & Gynecology
DX: O36.60X0 Maternal care for excessive fetal growth, unspecified trimester, not applicable or unspecified (principal); Z3A.00 Weeks of gestation of pregnancy not specified
CPT/HCPCS: 76816

== ENCOUNTER 2025-02-18 19:07 | Outpatient (RCR) | payer BC, SELFPAY ==
[2025-02-18 19:31] VITALS: BP 110/67; PULSE 87
== END 2025-05-19 23:59 | disposition home or self-care (01) ==
LOC: ANHOBOP 19:07
PROVIDERS: PCP Clinical Nurse Specialist; Visit Provider Obstetrics & Gynecology
DX: O36.8130 Decreased fetal movements, third trimester, not applicable or unspecified (principal); Z3A.38 38 weeks gestation of pregnancy
CPT/HCPCS: 59025

== ENCOUNTER 2025-02-21 07:32 | Outpatient (RCR) | payer BC, SELFPAY ==
[2025-02-03 12:28] VITALS: BP 118/74; PULSE 79
[2025-02-07 08:38] VITALS: BP 114/63; PULSE 78
[2025-02-10 08:34] VITALS: BP 123/65
[2025-02-14 08:43] VITALS: BP 117/63; PULSE 82
[2025-02-17 07:50] VITALS: BP 118/70; PULSE 78
--- NOTE | ~2025-02-21 | US_ITS ---
EXAMINATION: US OB follow up DATE: 02/17/2025 09:14 INDICATION: Assess amniotic fluid index and estimated weight growth percentile during third [facility] . TECHNIQUE: Real-time ultrasound of the pelvis was performed. The interpreting radiologist was not pre sent for the study. COMPARISON: None. FINDINGS: There is a single living fetus in vertex presentation. The placenta is anterior. heart rate is 135 beats per minute (bpm). The amniotic fluid index is 8.9 cm, which is normal (5th%-95%: 7.7-24.9 cm at 37 weeks estimated gestational age). The following biometric data were obtained: BPD: 8.4 cm -> 33 weeks 5 days Head circumference: 31.7 cm -> 35 weeks 4 days Abdominal circumference: 38.4 cm -> is out of range Femur length: 7.8 cm -> 40 weeks 1 days These measurements are discordant with femur length to biparietal diameter ratio and femur length to head circumference ratio both greater than the normal range. Head circumference to abdominal circumference ratio: 0.82 (normal range 0.92-1.07). Estimated weight: 2885 g (+/-) 583 g or 8 lbs. 9 oz. (+/-) 1 lb. 5 oz. IMPRESSION: 1. Single living fetus in vertex presentation with heart rate of 135 bpm. 2. Normal amniotic fluid index of 8.9 cm. 3. Estimated weight is 95th percentile by Hadlock criteria when 03/04/2025 is used as the estima ibrahima date of delivery (MIGUEL). Is increased from the 90th percentile study dated 01/17/2025. Please corre late with clinical information or earlier ultrasounds for most accurate MIGUEL. 4. Increase in discordance of the biometric data with head circumference and biparietal diameter deondre urements decreased relative to the abdominal circumference and femur length. Reviewed, dictated and finalized at location A. IMPRESSION: 1. Single living fetus in vertex presentation with heart rate of 135 bpm. 2. Normal amniotic fluid index of 8.9 cm. 3. Estimated weight is 95th percentile by Hadlock criteria when 03/04/2025 is used as the estimated date of delivery (MIGUEL). Is increased from the [facility] dated 01/17/2025. Please correlate with clinical information or e arlier ultrasounds for most accurate MIGUEL. 4. Increase in discordance of the biometric data with head circumference and bi parietal diameter measurements decreased relative to the abdominal circumferenc e and femur length.
--- NOTE | ~2025-02-21 | US_ITS ---
EXAMINATION: US OB limited DATE: 02/07/2025 08:40 INDICATION: Maternal gestational diabetes during third trimester . Assess amniotic fluid ind ex. TECHNIQUE: Real-time ultrasound of the pelvis was performed. The interpreting radiologist was not pre sent for the study. COMPARISON: None. FINDINGS: There is a single living fetus in vertex presentation. The placenta is anterior. heart rate is 132 beats per minute (bpm). The amniotic fluid index is 13.0 cm, which is normal. (5th%-95%: 7.7-24. 9 cm at 36 weeks estimated gestational age). IMPRESSION: 1. Single living fetus in vertex presentation with heart rate of 132 bpm. 2. Normal amniotic fluid index of 13.0 cm. Reviewed, dictated and finalized at location B. IMPRESSION: 1. Single living fetus in vertex presentation with heart rate of 132 bpm . 2. Normal amniotic fluid index of 13.0 cm.
[2025-02-21 08:10] VITALS: BP 118/61; PULSE 84
== END 2025-02-26 07:03 | disposition home or self-care (01) ==
LOC: ANHOBOP 07:32
PROVIDERS: PCP Clinical Nurse Specialist; Visit Provider Obstetrics & Gynecology
DX: O24.419 Gestational diabetes mellitus in pregnancy, unspecified control (principal); Z3A.35 35 weeks gestation of pregnancy; Z3A.36 36 weeks gestation of pregnancy; Z3A.37 37 weeks gestation of pregnancy; Z3A.38 38 weeks gestation of pregnancy
CPT/HCPCS: 59025; 76815; 76816

== ENCOUNTER 2025-02-24 05:30 | Inpatient (IN) | payer BC, SELFPAY ==
[2025-02-24] VITALS (114 sets, daily range): BP systolic 84–155; BP diastolic 42–92; PULSE 66–138; RESP 16–20; TEMP 36.6–36.9; O2SAT 97–100; BMI 34.7
--- OUTSIDE RECORDS SUMMARY | 2025-02-24 05:36 | XMS_ITS | Clinical Summary ---
Author Organization [facility] Amy amaya [address]22 Address [address] [place] [address] Phone Care Team Providers Care Radio Time Buyer Name Role Phone Unavailable Primary Care Provider Unavailabl e Encounters Date Type Department Care Team Description 12/13/2024 10:00 AM CDT - 12/13/2024 11:59 PM CDT Hospital Encounter [facility] [address] [place] [address] Miriam Greene MD Discharge Disposition: Home or Self Care 12/07/2024 External Device Data STL ABSTRACTION Provider, Abstract from Last 3 Months Social History Tobacco [...] CDT Encounter for ultrasound to check growth from Last 3 Months Results * US OB FOLLOW UP PER FETUS (12/13/2024 10:35 AM CDT) Anatomical Region Laterality Modality Pelvis Ultrasound 12/13/2024 10:1 3 AM CDT Narrative 12/13/2024 10:58 AM CDT STL FOLLOW UP ----- Pat. Name: ODESSA HOGAN Study Date: 12/13/2024 10:13am Pat. NO: [id number] Referring MD: JACY UP MD Site: [facility] T[facility] Repairer: Penny Bridges RDMS : 1990 Age: 34 ----- INDICATION ----- Screening Follow-Up Maternal Obesity (BMI<40) Complicating CODING ----- Diagnoses Z3A.28: Weeks of gestation O99.213: Obesity complicating Z3A.28: Weeks of gestation Z36.2: Encounter for other screening follow-up O99.213: Obesity complicating Procedures 92288: Ultrasound, uterus, real time with image documentation, [...] 3 lb 4 oz EFW by Hadlock ([id number]) Extremities / Bony Struc Biometry: FL / [...] and date of were verified by the yarn texture machine operator prior to the exam IMPRESSION ----- Gentile [...] MD - 12/13/2024 STL FOLLOW UP ----- Alyson. Name:Jordon HOGAN Date:12/13/2024 10:13am Pat. NO: [id number] MD:JACY UP [facility]Penny Brid[facility] RDMS :1990Age:34 ----- INDICATION ----- Screening Follow-Up Maternal Obesity (BMI<40) Complicating CODING ----- Diagnoses Z3A.28: Weeks of gestation O99.213: Obesity complicating Z3A.28: Weeks of gestation Z36.2: Encounter for other screeningfollow-up O99.213: Obesity complicating Procedures 05566: Ultrasound, uterus, real time withimage documentation, follow up, transabdominal approach per fetus HISTORY ----- OB History 3. Para 2 T2L2 MATERNAL ASSESSMENT ----- Physical Exam Weight 91 kg. BMI 33.28 kg/m METHOD ----- Transabdominal ultrasound examination ----- Gentile . Number of fetuses: 1 DATING ----- GA by prior [id number] w + 3 d MIGUEL by prior [...] 3 lb 4 oz EFW by Hadlock ([id number]) Extremities / Bony Struc Biometry: FL / [...] and date of were verified by the yarn texture machine operator prior tothe exam IMPRESSION ----- Gentile @ [...] of this patient. us Miriam Greene MD ORDERABLES Final Result from Last 3 Months Insurance [facility] [employer] [facility] [employer] CHOICE
--- OUTSIDE RECORDS SUMMARY | 2025-02-24 05:36 | XMS_ITS | Clinical Summary ---
Author Organization [facility] Address [address] [place] [address] Care Team Providers Care Windsurfing Instructor Name Role Phone Treva Salazar MD Primary Care Provider [phone] Source Comments [facility],non-owned Affiliates and Associated Physician Practices is amultiple site organization consisting of ambulatory clinics and hospital sitesin [place], [place], [place] and [place]. This disclosure is being madepursuant to the Care Everywhere program and may not contain all information available regarding this patient. Last updated 18.[facility] Allergies No known active allergies Medications * [...] on file Legal Sex Female 6:56 AM RN PAIN MANAGEMENT Gender Identity Not on file Sexual Orientation [...] Date of Phone Billing Address Personal/Family 1990 [facility] [place] [address] [employer] Care Teams Windsurfing Instructor Relationship Specialty Start Date End Date Treva Salazar MD PCP - General Pediatrics 12/09/11
--- OUTSIDE RECORDS SUMMARY | 2025-02-24 05:36 | XMS_ITS | Continuity of Care Document ---
Author Organization [facility] Address [address] [place] [address] [place] [address] Phone Care Team Providers Care Professor Of French Name Role Phone Navin Trujillo MD Unavailable Unavailable Allergies, Adverse Reactions, Alerts Substance Reaction Status Criticality No Known Allergies Active No Inform ation Medications Medication Instructions Dosage Effective Dates (start - stop) Status Comments ketoconazole 2 % topical cream apply by topical route 2 times every day to the affected area(s) Not Available - Active avoid applying to nipple and breast area, use topical for two weeks ketoconazole 200 mg tablet take 1 tablet by oral route every day 200 MG - Active Procedures Procedure Date PREV VISIT, NEW, AGE 18-39 Advance Directives Directive Yes / No Effective Date File Name No Information Encounters Encounter Description Practice Location Reason(s) For Visit Diagnoses Date Provider Providers Copied on Encounter PREV VISIT, NEW, AGE 18-39 [facility], [address] [facility] [place], [id number], tel:[phone] [facility] physical (chief complaint) Encounter for general adult medical examination without abnormal findings Ronnie Holden. [address] [facility] [place], [id number], [place]. tel:[phone] Family History Family Member Type Diagnosis Age At Onset Mother Problem Hypertension Father Problem Hypertension Brother Problem Alive and well Father Problem Alive and well Payers Payer name Insurance type Covered democrat ID Authoriza tion(s) No Information Social History Type Description Quantity Date Captured Comments Alcohol Use Details No Caffeine Use Details Unknown Tobacco Use Status Current non-smoker Smoking Status Never smoker Non-Smoking Tobacco Use Details : No Details Available : No Details Available Sex Female Vital Signs Date / Time: Height Weight BMI Pulse Rate Blood Pressure Temperature Respiratory Rate Body Surface Area Head Circumference BMI percentile Pulse Ox Inhaled Ox 5:46 PM 65.00 in 185.20 lbs 30.8 2 kg/m eter (2) 65 /min 127/68 mm[Hg] 98.6 F 18 /min Chief Complaint And Reason For Visit From encounter dated '11/01/2020 17:43'. physical (chief complaint). 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 the program involves some cardio and weight training. Pt denies any chest pain or headache or sob with activity Pt denies any family history of early sudden cardiac due to cardiomyopathy. Pt also c/o intermittent itchy rash on her upper back for one year Pt states that she initially noticed a small spot which gradually expended to upper back area. 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 pt states that she has itching during flares up which is usually every 2-3 weeks. Pt states that hot temp and sweats sometimes exacerbates the rash Pt tried steroid but did not work. 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 the program involves some cardio and weight training. Pt denies any chest pain or headache or sob with activity Pt denies any family history of early sudden cardiac due to cardiomyopathy. Pt also c/o intermittent itchy rash on her upper back for one year Pt states that she initially noticed a small spot which gradually expended to upper back area. 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 pt states that she has itching during flares up which is usually every 2-3 weeks. Pt states that hot temp and sweats sometimes exacerbates the rash Pt tried steroid but did not work. Pt denies spreading of the rash Pt denies any other complaints Instructions Date Instruction Additional Infor mation No Information Assessments Type Assessment Date assessment Encounter for corrine maxwell adult medical examination without abnormal findings Mental Status Date Cognitive Assessment Orientation - [place] ed to time, place, person, situation.
--- OUTSIDE RECORDS SUMMARY | 2025-02-24 05:36 | XMS_ITS | Continuity of Care Document ---
Author Organization [facility] Address [address] [place] [address] Phone Care Team Providers Care Hematology Oncology Consultant Name Role Phone Unavailable Unavailable Unavailable Advance Directives Directive Yes / No Effective Date File Name No Information Encounters Encounter Description Practice Location Reason(s) For Visit Diagnoses Date Provider Providers Copied on Encounter [facility], [address], [place], [place], [id number], [place] tel:[phone] [facility] No Information No Information Referring Provider: ZULLY Gibson, [address], [place], [address]. tel:[phone] Family History Family Member Type Diagnosis Age At Onset No Information Payers Payer name Insurance type Covered libertarian ID Authoriza antonia(s) [employer] PPO [id number] CI [id number] Social History Type Description Quantity Date Captured Comments Sex Female Smoking Status No Information Chief Complaint And Reason For Visit No Information History Of Present Illness Encounter Date Complaint History Of Prese nt Illness No Information Instructions Date Instruction Additional Infor mation No Information Assessments Type Assessment Date No Information
[2025-02-24 06:37] LABS: Basophils Percent Auto 0.5 % (0.2-1.2); Eosinophils Absolute Auto 0.1 K/mm3 (0-0.3); Eosinophils Percent Auto 1.2 % (0-4.4); Hematocrit 36.3 % (37.0-47.0); Hemoglobin 12.2 g/dL (12.0-15.0); Immature Granulocyte Absolute 0.05 K/mm3 (0.00-0.031); Immature Granulocyte Percent A 0.9 % (0-0.5); Lymphocytes Absolute Auto 1.87 K/mm3 (0.9-3.2); Lymphocytes Percent Auto 33.3 % (18.3-44.2); Mean Corpuscular HGB Conc 33.6 g/dl (32-36); Mean Corpuscular Volume 83.3 fl (80-100); Mean Platelet Volume 9.3 fl (7.4-10.4); Monocytes Absolute Auto 0.5 K/mm3 (0.1-0.6); Monocytes Percent Auto 9.3 % (2.6-8.5); Neutrophils Absolute Auto 3.1 K/mm3 (1.3-6.7); Neutrophils Percent Auto 54.8 % (45.5-73.1); Platelet Count Result 247 k/mm3 (150-375); Red Blood Count 4.36 M/mm3 (4.2-5.4); Red Cell Distribution Width 14.2 % (11.5-14.5); White Blood Count 5.6 K/mm3 (4.5-10.0)
--- NOTE | 2025-02-24 06:43 | LDADM ---
This patient, Odessa Nagel, was admitted to Labor/Delivery/Recovery 102 on 02/24/25 at 05:30. Plans for labor, pain management and were discussed with patient. Patient/family oriented to hospital policies and general routines including ID bracelet, bed and alarms, visiting hours, pain management, procedures, bathroom and other care routines, personal items, smoking policy, room service/diet and guest tray routines, security routines, and visiting hours. Patient/Family are encouraged to report perceived risks to care and to ask questions if they do not understand what they are told or what they should do. See OBIX for further documentation.
[2025-02-24 07:14] LABS: Syphilis IgG/IgM Antibody Non-Reactive (Nonreactive)
[2025-02-24] MEDS: LACTATED RINGERS 1,000 ML 125 ML IV CONT (07:14)
[2025-02-24] MEDS: OXYTOCIN 30 UNITS/NS 500 ML 30 UNITS/500 ML BAG IV CONT (07:17)
[2025-02-24 08:13] LABS: Glucose Point of Care 90 mg/dl (65-105)
[2025-02-24] MEDS: LACTATED RINGERS 1,000 ML 999 ML IV CONT (09:00)
--- NOTE | 2025-02-24 09:10 | P.PNAN_ITS ---
Anes - Eval Pre Procedure Procedure: Labor Epidural Date/Time: 02/24/25 09:10 Surgeon: Diana Preop Diagnosis: Labor Pain Pre Op Diagnosis: IOL Patient Data Age: 34 Gender: F Height: 1.65 m Weight: 94.5 kg Last Vital Signs Temp 36.8 C 02/24/25 08:30 Pulse 134 H 02/24/25 09:01 BP 128/70 02/24/25 09:01 Pulse Ox 100 02/24/25 09:09 Allergies Allergy/AdvReac Type Severity Reaction Status Date / Time No Known Allergies Allergy Verified 02/17/25 09:56 Home Medications ?Medication ?Instructions ?Recorded ?Confirmed ?Type cholecalciferol (vitamin D3) 1,250 1,250 mcg PO WEEKLY #8 tabs 11/25/23 02/24/25 Rx mcg (50,000 unit) tablet CPAP #1 ea 01/14/24 02/17/25 Rx Chin Strap #1 ea 06/25/24 02/17/25 Rx biotin 10,000 mcg chewable tablet 10,000 mcg PO DAILY 07/23/24 02/24/25 History (Hair, Skin and Nails (biotin)) ferrous sulfate 325 mg (65 mg 325 mg PO DAILY 07/23/24 02/24/25 History iron) tablet vitamin#30 30 mg iron-10 1 cap PO DAILY 07/23/24 02/24/25 History mg iron-folic acid 1 mg-omg3 capsule Dexcom G7 Sensor (blood-glucose #1 ea 01/14/25 02/17/25 Rx sensor) pen needle, diabetic 32 gauge x #100 ea 02/03/25 02/17/25 Rx 5/32 (Lauren Pen Needle) Novolog FlexPen U-100 Insulin 100 4 unit (0.04 mL) subcut QACBREAK 02/04/25 02/24/25 Rx unit/mL (3 mL) subcutaneous #15 mL (insulin aspart U-100) insulin NPH isoph U-100 human 100 10 unit (0.1 mL) subcut QHS #3 mL 02/17/25 02/24/25 Rx unit/mL (3 mL) subcutaneous pen (Humulin N NPH U-100 Insulin KwikPen) Laboratory Tests 02/24/25 02/24/25 06:27 08:09 WBC 5.6 K/mm3 (4.5-10.0) RBC 4.36 M/mm3 (4.2-5.4) Hgb 12.2 g/dL (12.0-15.0) Hct 36.3 L % (37.0-47.0) MCV 83.3 fl (80-100) MCH 28.0 pg (26-34) MCHC 33.6 g/dl (32-36) RDW 14.2 % (11.5-14.5) Plt Count 247 k/mm3 (150-375) MPV 9.3 fl (7.4-10.4) Immature Gran % (Auto) 0.9 H % (0-0.5) Neut % (Auto) 54.8 % (45.5-73.1) Lymph % (Auto) 33.3 % (18.3-44.2) Dyer % (Auto) 9.3 H % (2.6-8.5) Eos % (Auto) 1.2 % (0-4.4) Baso % (Auto) 0.5 % (0.2-1.2) Lymph # (Auto) 1.87 K/mm3 (0.9-3.2) Dyer # (Auto) 0.5 K/mm3 (0.1-0.6) Eos # (Auto) 0.1 K/mm3 (0-0.3) Baso # (Auto) 0.0 K/mm3 (0.0-0.1) Abs Immat Gran (auto) 0.05 H K/mm3 (0.00-0.031) Absolute Neuts (auto) 3.1 K/mm3 (1.3-6.7) Absolute Nucleated RBC 0.000 K/mm3 (0.0-0.012) Nucleated RBC % 0.0 % (0.0-0.2) POC Capillary Glucose 90 mg/dl (65-105) Syphilis IgG/IgM Ab Non-reactive (Nonreactive) Blood Type B Positive Antibody Screen Negative Patient hx anesthesia problems: none Family hx anesthesia problems: none Results Review: All pre-operative results and documents have been reviewed as part of the pre- operative evaluation. [facility] Past Medical History Medical History LGA (large for gestational age) fetus Surgical History Surgical History History of tonsillectomy (~2013) Family History Family History Father Diabetes mellitus Hypertension Mother Hypertension Grandparent Hypertension Grandparent Diabetes mellitus Hypertension Social History Social History Social History: Caffeine- coffee 1 cup daily Smoking status: Never smoker Second hand tobacco smoke exposure: No Alcohol intake: never Substance use: never Substance use type: does not use Do You Feel Safe in your Home?: Yes Lack of Transportation: No Lack of Food: Never True Current Housing: I Have Housing Concerned About Future Housing: No Difficulty Paying Gas/Electric Bills: No Difficulty Paying for Meds: No Currently Unemployed: No Education: Master's Degree or Higher Difficulty w/ Childcare or Family Care: No Living arrangements: with family Occupation/Education: occupation 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 Spiritual care concerns: No Agree to blood products: Yes Exam Day of Procedure 02/24/25 09:10 Patient weight: normal Heart: regular rate and rhythm Lungs: normal air movement Airway: Mallampati scale class II Neurological: alert and oriented
[2025-02-24 11:34] LABS: Glucose Point of Care 90 mg/dl (65-105)
[2025-02-24] MEDS: OXYTOCIN 30 UNITS/NS 500 ML 30 UNITS/500 ML BAG 125 UNITS IV CONT (14:06)
--- NOTE | 2025-02-24 16:32 | PM.OBPRVD ---
OB - Vaginal Delivery Note Procedure Delivery date: 02/24/25 Events: Other ( Gestational diabetes insulin requiring) Induction method: Per Pitocin Protocol Delivery augmentation: Rupture of Membranes Delivery monitor: External Uterine Route of delivery: Episiotomy description: None Quantitative Blood Loss (ml): 200 Anesthesia type: Epidural Disposition: Floor Complications: No immediate complications Narrative: she was admitted for medical induction of labor for gestational diabetes at 39 weeks. Her blood sugars were 90 with the hospital blood sugar monitoring kit her blood sugar fasting was 105. Subsequent blood sugars were in the 90s. Pitocin was started she had assisted rupture of membranes clear fluid she progressed to active labor and progressed to completely dilated. [place] Baby Date of : 02/24/25 Time of : 13:30 Gestational Age by Date: 39 Infant gender: Female Weight (pounds): 8 Weight (ounces): 9 presentation: vertex position: Left Occiput Anterior Placenta delivery description: Spontaneous Cord Vessel Description: 3 Vessels, Loose, Clamped/Cut, Delayed Cord Clamping and Around Body ( Loose) score one minute: 9 score five minutes: 9
--- NOTE | 2025-02-24 16:36 | PM.IMHP ---
H&P: HPI History of Present Illness Date/Time: 02/24/25 16:36 Chief Complaint: induction of labor Narrative: patient is a 34-year-old at 39 weeks with EDC of 626. course significant for gestational diabetes insulin requiring. Controlled. History of LGA. Review of Systems Review of Systems: All systems reviewed & are unremarkable except as noted in HPI and below Constitutional: Constitutional: Reports no additional constitutional complaints and Denies headache(s) Eyes: Eyes: Denies spots in vision ENT: Reports system reviewed and no additional complaints, except as documented and Denies headache(s) Cardiovascular: Cardiovascular: Denies chest pain and Denies dyspnea Respiratory: Respiratory: Denies dyspnea Gastrointestinal: Gastrointestinal: Reports no additional gastrointestinal complaints Genitourinary: Genitourinary: Reports amenorrhea Musculoskeletal: Musculoskeletal: Reports no additional musculoskeletal complaints Integumentary/Breasts: Skin/Breast: Denies breast mass and Denies rash Neurologic: Denies headache(s) Psychiatric: Psychiatric: Reports no additional psychiatric complaints PMFSH Past Medical History Medical History LGA (large for gestational age) fetus Surgical History Surgical History History of tonsillectomy (~2013) Family History Family History Father Diabetes mellitus Hypertension Mother Hypertension Grandparent Hypertension Grandparent Diabetes mellitus Hypertension Social History Social History Social History: Caffeine- coffee 1 cup daily Smoking status: Never smoker Second hand tobacco smoke exposure: No Alcohol intake: never Substance use: never Substance use type: does not use Do You Feel Safe in your Home?: Yes Lack of Transportation: No Lack of Food: Never True Current Housing: I Have Housing Concerned About Future Housing: No Difficulty Paying Gas/Electric Bills: No Difficulty Paying for Meds: No Currently Unemployed: No Education: Master's Degree or Higher Difficulty w/ Childcare or Family Care: No Living arrangements: with family Occupation/Education: occupation Additional occupation/education comments: [employer] Spiritual care concerns: No Agree to blood products: Yes Meds Home Medications and Allergies Home Medications ?Medication ?Instructions ?Recorded ?Confirmed ?Type cholecalciferol (vitamin D3) 1,250 1,250 mcg PO WEEKLY #8 tabs 11/25/23 02/24/25 Rx mcg (50,000 unit) tablet CPAP #1 ea 01/14/24 02/17/25 Rx Chin Strap #1 ea 06/25/24 02/17/25 Rx biotin 10,000 mcg chewable tablet 10,000 mcg PO DAILY 07/23/24 02/24/25 History (Hair, Skin and Nails (biotin)) ferrous sulfate 325 mg (65 mg 325 mg PO DAILY 07/23/24 02/24/25 History iron) tablet vitamin#30 30 mg iron-10 1 cap PO DAILY 07/23/24 02/24/25 History mg iron-folic acid 1 mg-omg3 capsule Dexcom G7 Sensor (blood-glucose #1 ea 01/14/25 02/17/25 Rx sensor) pen needle, diabetic 32 gauge x #100 ea 02/03/25 02/17/25 Rx 5/32 (Lauren Pen Needle) Novolog FlexPen U-100 Insulin 100 4 unit (0.04 mL) subcut QACBREAK 02/04/25 02/24/25 Rx unit/mL (3 mL) subcutaneous #15 mL (insulin aspart U-100) insulin NPH isoph U-100 human 100 10 unit (0.1 mL) subcut QHS #3 mL 02/17/25 02/24/25 Rx unit/mL (3 mL) subcutaneous pen (Humulin N NPH U-100 Insulin KwikPen) Allergies Allergy/AdvReac Type Severity Reaction Status Date / Time No Known Allergies Allergy Verified 02/17/25 09:56 Vital Signs Vital Signs - 24 hr 02/24/25 06:38 02/24/25 06:39 02/24/25 06:46 Temperature 98 F Pulse Rate 77 74 Blood Pressure 131/81 123/74 Pulse Oximetry 02/24/25 07:01 02/24/25 07:31 02/24/25 08:30 Temperature 98.2 F Pulse Rate 73 74 Blood Pressure 123/74 120/78 Pulse Oximetry 02/24/25 08:32 02/24/25 09:01 02/24/25 09:09 Temperature Pulse Rate 107 H 134 H Blood Pressure 118/74 128/70 Pulse Oximetry 100 02/24/25 09:13 02/24/25 09:14 02/24/25 09:15 Temperature Pulse Rate 81 91 Blood Pressure 128/77 136/79 Pulse Oximetry 100 02/24/25 09:16 02/24/25 09:19 02/24/25 09:21 Temperature Pulse Rate 101 H 82 76 Blood Pressure 140/81 130/80 127/72 Pulse Oximetry 100 02/24/25 09:24 02/24/25 09:26 02/24/25 09:28 Temperature Pulse Rate 112 H 138 H 90 Blood Pressure 84/49 L 110/73 125/62 Pulse Oximetry 100 02/24/25 09:29 02/24/25 09:30 02/24/25 09:31 Temperature 98.1 F Pulse Rate 93 Blood Pressure 108/73 Pulse Oximetry 100 02/24/25 09:33 02/24/25 09:34 02/24/25 09:36 Temperature Pulse Rate 95 91 Blood Pressure 127/67 125/64 Pulse Oximetry 100 02/24/25 09:38 02/24/25 09:39 02/24/25 09:41 Temperature Pulse Rate 98 88 Blood Pressure 98/66 L 117/64 Pulse Oximetry 100 02/24/25 09:43 02/24/25 09:44 02/24/25 09:46 Temperature Pulse Rate 91 96 Blood Pressure 118/61 121/62 Pulse Oximetry 100 02/24/25 09:48 02/24/25 09:49 02/24/25 09:51 Temperature Pulse Rate 92 94 Blood Pressure 123/68 114/61 Pulse Oximetry 99 02/24/25 09:53 02/24/25 09:54 02/24/25 09:56 Temperature Pulse Rate 78 96 Blood Pressure 115/63 122/83 Pulse Oximetry 100 02/24/25 09:58 02/24/25 09:59 02/24/25 10:01 Temperature Pulse Rate 98 83 Blood Pressure 119/68 116/62 Pulse Oximetry 100 02/24/25 10:03 02/24/25 10:04 02/24/25 10:06 Temperature Pulse Rate 87 85 Blood Pressure 111/66 118/69 Pulse Oximetry 100 02/24/25 10:08 02/24/25 10:09 02/24/25 10:11 Temperature Pulse Rate 86 86 Blood Pressure 123/92 H 121/69 Pulse Oximetry 100 02/24/25 10:13 02/24/25 10:14 02/24/25 10:16 Temperature Pulse Rate 81 82 Blood Pressure 108/72 131/64 Pulse Oximetry 99 02/24/25 10:19 02/24/25 10:24 02/24/25 10:29 Temperature Pulse Rate 91 Blood Pressure 108/49 L Pulse Oximetry 100 100 100 02/24/25 10:31 02/24/25 10:34 02/24/25 10:39 Temperature Pulse Rate 83 Blood Pressure 107/45 L Pulse Oximetry 100 100 02/24/25 10:44 02/24/25 10:46 02/24/25 10:49 Temperature Pulse Rate 76 Blood Pressure 86/46 L Pulse Oximetry 99 100 02/24/25 10:54 02/24/25 10:55 02/24/25 10:59 Temperature 98.1 F Pulse Rate Blood Pressure Pulse Oximetry 100 100 02/24/25 11:01 02/24/25 11:04 02/24/25 11:09 Temperature Pulse Rate Blood Pressure 97/77 L Pulse Oximetry 100 100 02/24/25 11:14 02/24/25 11:16 02/24/25 11:19 Temperature Pulse Rate 79 Blood Pressure 113/60 Pulse Oximetry 100 100 02/24/25 11:24 02/24/25 11:29 02/24/25 11:31 Temperature Pulse Rate 77 Blood Pressure 105/80 Pulse Oximetry 100 100 02/24/25 11:34 02/24/25 11:39 02/24/25 11:44 Temperature Pulse Rate Blood Pressure Pulse Oximetry 99 100 99 02/24/25 11:46 02/24/25 11:49 02/24/25 11:54 Temperature Pulse Rate 77 Blood Pressure 108/73 Pulse Oximetry 98 99 02/24/25 11:59 02/24/25 12:01 02/24/25 12:04 Temperature Pulse Rate 79 Blood Pressure 114/68 Pulse Oximetry 98 99 02/24/25 12:09 02/24/25 12:14 02/24/25 12:16 Temperature Pulse Rate 78 Blood Pressure 120/68 Pulse Oximetry 98 99 02/24/25 12:19 02/24/25 12:24 02/24/25 12:28 Temperature 98.4 F Pulse Rate Blood Pressure Pulse Oximetry 99 100 02/24/25 12:29 02/24/25 12:31 02/24/25 12:34 Temperature Pulse Rate 81 Blood Pressure 118/62 Pulse Oximetry 100 100 02/24/25 12:39 02/24/25 12:44 02/24/25 12:46 Temperature Pulse Rate 79 Blood Pressure 121/78 Pulse Oximetry 100 100 02/24/25 12:49 02/24/25 12:54 02/24/25 12:59 Temperature Pulse Rate Blood Pressure Pulse Oximetry 100 100 100 02/24/25 13:01 02/24/25 13:04 02/24/25 13:09 Temperature Pulse Rate 116 H Blood Pressure 127/88 Pulse Oximetry 100 100 99 02/24/25 13:11 02/24/25 13:16 02/24/25 13:21 Temperature Pulse Rate 94 Blood Pressure 109/68 Pulse Oximetry 100 97 100 02/24/25 13:26 02/24/25 13:28 02/24/25 13:31 Temperature Pulse Rate 84 Blood Pressure 115/77 Pulse Oximetry 100 98 02/24/25 13:46 02/24/25 14:01 02/24/25 14:16 Temperature Pulse Rate 79 91 70 Blood Pressure 120/58 L 96/76 L 113/76 Pulse Oximetry 02/24/25 14:31 02/24/25 14:46 02/24/25 15:01 Temperature Pulse Rate 66 79 87 Blood Pressure 134/71 137/82 132/76 Pulse Oximetry 02/24/25 15:16 02/24/25 15:31 02/24/25 15:46 Temperature Pulse Rate 77 88 74 Blood Pressure 90/61 L 114/71 118/65 Pulse Oximetry 02/24/25 16:01 Temperature Pulse Rate 81 Blood Pressure 122/56 L Pulse Oximetry Exam Const: General: no acute distress Eyes: General: appearance normal, both eyes and all related structures Resp: Effort & Inspection: normal respiratory effort Cardio: Rate: regular rate GI: Other: Gravid no fundal tenderness no right upper quadrant pain Skin: General skin exam: no rashes or lesions noted Neuro: Cognition (Neuro): normal cognition Extrem: General: normal to inspection Psych: Mental Status: mental status grossly normal H&P: Results Labs Labs: Short CBC 02/24/25 Range/Units 06:27 WBC 5.6 (4.5-10.0) K/mm3 Hgb 12.2 (12.0-15.0) g/dL Hct 36.3 L (37.0-47.0) % Plt Count 247 (150-375) k/mm3 Assessment and Plan Assessment and plan (1) Gestational diabetes: Code(s): O24.419 - Gestational diabetes mellitus in , unspecified control Status: Acute Assessment and Plan: will monitor blood sugars. (2) Encounter for induction of labor: Code(s): Z34.90 - Encounter for supervision of normal , unspecified, unspecified trimester Status: Acute Assessment and Plan: Pitocin induction. She has been informed of risks benefits of induction versus spontaneous labor. Agrees with induction of labor.
--- NOTE | 2025-02-24 16:38 | PM.OBPNLAB ---
Pain Control Date/time seen: 02/24/25 0800 cat1, AROM, clear, /-2, continue pitocin.
--- NOTE | 2025-02-24 16:46 | P.DS_ITS ---
DS: Admitting Diagnosis Discharge Date 02/25/25 Admitting Diagnosis Induction of labor Insulin requiring gestational diabetes DS: Discharge Diagnosis Discharge Diagnosis (1) Vaginal delivery: Code(s): O80 - Encounter for full-term uncomplicated delivery Status: Acute OB - DS: Summary Hospital Course Hospital Course: She was admitted for [facility]. She had an uncomplicated vaginal delivery. She and baby did well . She was discharged to home on day1. OB Procedures : Ultrasound OB Procedures Intrapartum: Spontaneous Vag Delivery OB Procedures: : None Peripartum Data Infant Delivery Method: Natural Vaginal Episiotomy description: None complications: none Status at Discharge Functional status at discharge: independent ambulation Time Spent with Patient Time attestation: Total time spent providing and/or coordinating discharge services: Exam Const: General: cooperative Orientation/consciousness: oriented to person, oriented to place and oriented to time HENMT: Face/Nose/Sinus: Normal external nose present Eyes: General: appearance normal, both eyes and all related structures Resp: Effort & Inspection: normal respiratory effort GI: Inspection: normal to inspection Skin: General skin exam: normal color Neuro: General: oriented to person, oriented to place and oriented to time Extrem: General: normal to inspection and no calf tenderness Psych: Appearance: grossly normal Mental Status: mental status grossly normal DS: Data Data Completed and Pending Labs on day of discharge: Labs from last 24 hours 02/24/25 02/24/25 02/24/25 11:30 08:09 06:27 WBC 5.6 RBC 4.36 Hgb 12.2 Hct 36.3 L MCV 83.3 MCH 28.0 MCHC 33.6 RDW 14.2 Plt Count 247 MPV 9.3 Immature Gran % (Auto) 0.9 H Neut % (Auto) 54.8 Lymph % (Auto) 33.3 [place] % (Auto) 9.3 H Eos % (Auto) 1.2 Baso % (Auto) 0.5 Lymph # (Auto) 1.87 [place] # (Auto) 0.5 Eos # (Auto) 0.1 Baso # (Auto) 0.0 Abs Immat Gran (auto) 0.05 H Absolute Neuts (auto) 3.1 Absolute Nucleated RBC 0.000 Nucleated RBC % 0.0 POC Capillary Glucose 90 90 Syphilis IgG/IgM Ab Non-reactive Blood Type B Positive Antibody Screen Negative Discharge Plan Discharge Attending physician on discharge: Arnoldo Ortiz Consulting providers: Karena Stoddard Discharging Clinician: Arnoldo Ortiz Patient Disposition: Home Activity: may shower and pelvic rest Diet: regular Discharge Instructions: Education: Mom and Baby Guide Given to: Mother Follow-Up: Call your delivering provider's office for an appointment to be seen in: 4 Weeks Mom and baby should come to the [facility] for the follow-up appointment. Appointment Date/Time: February 28, 2025 at 8:00 am What to expect at your follow-up visit: Physical Assessment Call [phone] if you are unable to keep your appointment time. BREAST CARE: * Wear a snug supportive bra. * For engorgement discomfort: Breast Feeding: * Apply warm moist washcloths * Express milk as needed to relieve engorgement * Wear loose clothing * For sore nipples: * Identify correct latch-on * Apply warm moist washcloths before and after nursing * Air dry nipples after nursing * May apply Lansinoh cream to nipples EPISIOTOMY/PERINEAL CARE: * Until bleeding stops, use your maryellen bottle after urinating * Change your pad frequently throughout the day * No tub baths until seen by your physician - You may shower ACTIVITY: * Rest as much as possible. * Do not exercise or lift anything heavier than your baby (such as laundry or other children.) * Avoid stairs or driving as much as possible. * Do not put anything into the vagina. No douching, tampons, or sexual activity until seen by physician. NOTIFY PHYSICIAN IF YOU HAVE ANY QUESTIONS OR IF ANY OF THE FOLLOWING SYMPTOMS OCCUR: * If your perineum becomes red, swollen, or more painful than what you have experienced in the hospital. * If your vaginal bleeding becomes foul smelling. * If your vaginal bleeding becomes more heavy than a period or if your bleeding changes from pink to bright red. However, you may pass an occasional walnut- sized clot once or twice for the first week . * If you experience a sharp, shooting pain in you calves. * If you discover a hard, reddened area on your breast or if you experience flu- like symptoms. DIET: * Eat regular, well-balanced meals. * Drink plenty of fluids daily. If , drink to thirst. Patient Language: Bolivian Stand Alone Forms: General Discharge Information Follow-up/Referrals: Arnoldo Ortiz MD [Physician] - Call for Appointment Discharge Medications: Continued PNV #[id number] 30 mg iron-10 mg iron-1 mg capsule 1 cap PO DAILY Discontinued ferrous sulfate 325 mg (65 mg iron) tablet 325 mg PO DAILY Hair, Skin and Nails (biotin) 10,000 mcg tablet,chewable 10,000 mcg PO DAILY Humulin N NPH Insulin KwikPen 100 unit/mL (3 mL) insulin pen 10 unit subcut QHS Qty: 3 0RF insulin aspart U-100 [Novolog FlexPen U-100 Insulin] 100 unit/mL (3 mL) insulin pen 4 unit subcut QACBREAK Qty: 15 0RF Rx Instructions: 4 units at breakfast cholecalciferol (vitamin D3) 1,250 mcg (50,000 unit) tablet 1,250 mcg PO WEEKLY Qty: 8 1RF No Action (DME) Chin Strap See Rx Instructions .Route .MEDSUPPLY Qty: 1 0RF Rx Instructions: As directed (DME) Dexcom G7 Sensor Device See Rx Instructions .ROUTE .MEDSUPPLY Qty: 1 4RF Rx Instructions: Apply sensor for 10 days (DME) pen needle, diabetic [Lauren Pen Needle] 32 gauge x 5/32 needle See Rx Instructions .MEDSUPPLY Qty: 100 0RF Rx Instructions: As directed (DME) CPAP See Rx Instructions .Route .MEDSUPPLY Qty: 1 0RF Rx Instructions: Resmed AirSense 11 AutoPAP 5-15 cm H2O, CPAP mask/filters/tubing and heated humidity. Date of admission: 02/24/25 05:30 Primary Care Provider: Marbella Soria Admitting Provider: Arnoldo Ortiz Attending physician on admission: Arnoldo Ortiz Condition: Stable
[2025-02-24] MEDS: ACETAMINOPHEN 325 MG TABLET 650 MG PO (16:59)
[2025-02-24] MEDS: IBUPROFEN 600 MG TABLET PO ×2 (16:59→23:05)
[2025-02-24] MEDS: WITCH HAZEL 40 PADS 1 PAD TOPICAL (17:01)
[2025-02-24] MEDS: BENZOCAINE 20% AER SPR (*SP) 56 GM CAN 1 SPRAY TOPICAL (17:01)
--- NOTE | 2025-02-24 17:15 | PC.NURSE ---
Patient transferred to post room #282 via wheelchair. Support person present. Oriented to unit, room, information board, rooming in, admission packet and security measures. Patient verbalizes understanding.
[2025-02-25] MEDS: ACETAMINOPHEN 325 MG TABLET 650 MG PO (03:00)
[2025-02-25 05:32] LABS: Hematocrit 33.9 % (37.0-47.0)
--- NOTE | 2025-02-25 07:46 | WPDANLDPN2 ---
Anes-Prog Note L&D Date/Time: 02/25/25 07:46 Comfortable throughout: labor and delivery Neuraxial method: epidural Epidural/Spinal procedure site: clean & non-tender Neuro status: Neuro function grossly intact. Cardiovascular status: normal Respiratory status: normal Airway patency: baseline Mental status: baseline Vital Signs: Last Vital Signs Temp 36.6 C 02/24/25 23:18 Pulse 68 02/24/25 23:18 Resp 20 02/24/25 23:18 BP 112/42 L 02/24/25 23:18 Pulse Ox 98 02/24/25 23:18 O2 Del Method Room Air 02/24/25 17:15 Pain score (VAS): 0 I/O: Intake & Output 02/24/25 02/24/25 02/25/25 15:59 23:59 07:59 Intake Total 2114.2 Output Total 500 900 Balance 1614.2 -900 Patient feedback: Patient satisfied with anesthetic care.
--- NOTE | 2025-02-25 07:50 | P.PNOB_ITS ---
OB - PN: Subj Subjective Date/time seen: 02/25/25 07:50 Patient comments: pain well controlled, tolerating diet and other (Decreasing lochia.) baby status: doing well and nursing well OB - PN: Obj Data Labs 02/25/25 03:46 Labs: Laboratory Results - last 24 hr 02/24/25 02/24/25 02/25/25 08:09 11:30 03:46 Hgb 11.0 L Hct 33.9 L POC Capillary Glucose 90 90 OB - PN A/P Plan day: 1 Plan: routine care and discharge home Time Spent With Patient Time: Total time spent is greater than 50% in coordination of care (as documented) at patient's floor/unit and/or counseling patient: Exam 2 Psych: Affect: normal affect Other: Abd: fundus firm below umbilicus, nontender Perineum: healing Ext: nontender
[2025-02-25 08:35] VITALS: BP 146/94; PULSE 82; RESP 16; TEMP 36.7; O2SAT 100
[2025-02-25] MEDS: MULTIVIT/MIN/PREN/FOL AC/IRON TABLET 1 TAB PO (09:02)
[2025-02-25] MEDS: IBUPROFEN 600 MG TABLET PO (09:02)
[2025-02-25] MEDS: DOCUSATE SODIUM 100 MG CAPSULE PO (09:10)
[2025-02-25 10:40] VITALS: BP 117/68
[2025-02-25 12:05] VITALS: BP 120/82; PULSE 71; RESP 16; TEMP 36.7; O2SAT 100
--- NOTE | 2025-02-25 17:44 | PC.NURSE ---
Patient instructed on viewing the discharge video Mother & Baby Care, The First Two Weeks. Patient was given the opportunity and encouraged to ask questions. Patient verbalized understanding of information shared and has been given the mother/baby guide for home reference.
[2025-02-28 08:29] VITALS: BP 125/75; PULSE 66; RESP 18; TEMP 36.6; O2SAT 98
== END 2025-02-25 16:36 | disposition home or self-care (01) | DRG 807 ==
LOC: ANHLDR 16:48 → ANHOB2 18:52
PROVIDERS: Admitting Provider Obstetrics & Gynecology; PCP Clinical Nurse Specialist; Visit Provider Obstetrics & Gynecology
DX: O24.424 Gestational diabetes mellitus in childbirth, insulin controlled (principal); Z37.0 Single live birth; Z3A.39 39 weeks gestation of pregnancy; O69.82X0 Labor and delivery complicated by other cord entanglement, without compression, not applicable or unspecified
CPT/HCPCS: 36415; 82948; 85014; 85018; 85025; 86593; 86850; 86900; 86901; A9270; J2590; J2795; J7120

== ENCOUNTER 2025-04-28 08:53 | Outpatient (CLI) | payer BC, SELFPAY ==
--- OUTSIDE RECORDS SUMMARY | 2025-04-28 09:09 | XMS_ITS | Continuity of Care Document ---
Author Name [facility] Organization [facility] Care Team Providers Care Director Of Infection Prevention Name Role Phone [facility] Unavailable Unavailable Problems Combined list of problems from [facility] facilities. It does not include entries that were removed or entered in error. Problem Status Onset Date Problem Type Date of Resolution Comments Source Allergic rhinitis Active Condition Unknown Organization [facility] Active Condition Unknown Organization Medications Combined list of outpatient medications from [facility] facilities.Medications provided include 1) outpatient medications from the last 15 months, and 2) patient-reported medications. Medication Details Route Status Patient Instructions Prescription Expires Prescription Number Last Dispense Date Ordering Provider Order Date Order Qty Source acetaminoph en 325 mg oral tablet 1 tab(s), Oral, every 4 hr, PRN pain or fever, # 100 tab(s), 0 total refill(s ), Acute, 03/27/20 2:00:00 AM CDT, Route to [facility] Oral (given by mouth) Complet ed 03/27/2020 0 2019 100.0 0028[facility] azithromyci n 250 mg oral tablet see instruct ions, take 2 tablets today then 1 tablet daily for 4 days, # 6 tab(s), 0 total refill(s ), Acute, 09/27/19 2:00:00 AM RN DISCHARGE, [facility] pharmacy dispense (Rx) Complet ed 09/27/2019 0 2019 6.0 0028[facility] Bactroban 2% topical ointment 1 appl(s), Topical, TID, # 22 g, 0 total refill(s ), Acute, [facility] pharmacy dispense (Rx) Topica l (on the skin) Complet ed 11/16/2019 0 2019 22.0 0028[facility] benzocaine- menthol 15 mg-3.6 mg (SF) mucous membrane lozenge ALLOW 1 TABLET TO DISSOLVE IN THE MOUTH EVERY TWO HOURS NEEDED FOR SORE THROAT, [facility]/01/20192019 [facility] Clar[facility] 10 mg oral tablet 1 tab(s), Oral, Daily, PRN allergy symptoms , # 90 tab(s), 3 total refill(s ), [facility], [facility] pharmacy dispense (Rx) Oral (given by mouth) Ordered 0 2019 90.0 0028[facility] Classic oral tablet 1 tab(s), Oral, Daily, # 30 tab(s), 0 total refill(s ), [facility], Route to [facility] Oral (given by mouth) Ordered 0 2019 30.0 0028[facility] clotrimazol e 1% topical cream 1 appl(s), Topical, BID, # 28 g, 1 total refill(s ), Acute, Route to [facility] Topica l (on the skin) Complet ed 06/16/2020 0 2019 28.0 [facility] Colace 100 mg oral capsule 1 cap(s), Oral, BID, PRN constipa tion, # 20 cap(s), 0 total refill(s ), [facility], Route to [facility] Oral (given by mouth) Ordered 0 2019 20.0 0028[facility] Diflucan 150 mg oral tablet 1 tab(s), Oral, As Directed , Once, # 1 tab(s), 0 total refill(s ), Acute, 09/21/19 9:56:00 PM [facility] pharmacy dispense (Rx) Oral (given by mouth) Discont inued 09/22/2019 0 2019 1.0 0028[facility] erythromyci n 0.5% ophthalmic ointment 1 appl(s), Eye-Both , QID, # 3.5 g, 0 total refill(s ), Acute, [facility] pharmacy dispense (Rx) Both eyes Complet ed 09/28/2019 0 2019 3.5 0028[facility] fluconazole 150 mg oral tablet Maintena nce Discont inued 11/01/20192019 0028[facility] fluconazole 150 mg oral tablet fluconaz ole 150 mg oral tablet Start Date: 04/24/19 Stop Date: 07/26/19 Status: Disconti ervin Repeat number: 1 Discont inued 07/27/20192018 No Facilit y Access ibuprofen 800 mg oral tablet 1 tab(s), Oral, every 8 hr, # 30 tab(s), 0 total refill(s ), Acute, 03/27/20 2:00:00 AM CDT, Route to [facility] Oral (given by mouth) Complet ed 03/27/2020 0 2019 30.0 0028[facility] loratadine 10 mg oral tablet TAKE ONE TABLET BY MOUTH EVERY DAY, Maintena nce Discont inued 11/01/20192019 0028[facility] loratadine 10 mg oral tablet loratadi ne 10 mg oral tablet Start Date: 04/24/19 Stop Date: 07/26/19 Status: Ciarraonti ervin Repeat number: 1 Discont inued 07/27/20192018 No Facilit y Access metroNIDAZO LE 0.75% vaginal gel with applicator Maintena nce Discont inued 11/01/20192019 0028[facility] metroNIDAZO LE 0.75% vaginal gel with applicator metroNID AZOLE 0.75% vaginal gel with applicat or Start Date: 04/24/19 Stop Date: 07/26/19 Status: Ciarraonti ervin Repeat number: 1 Discont inued 07/27/20192018 No Facilit y Access metroNIDAZO LE 500 mg oral tablet metroNID AZOLE 500 mg oral tablet Start Date: 04/24/19 Stop Date: 07/26/19 Status: Disconti ervin Repeat number: 1 Discont inued 07/27/20192018 No Facilit y Access Mucinex D 60 mg-600 mg oral tablet, extended release TAKE ONE TABLET BY MOUTH TWICE A DAY NEEDED FOR CONGESTI ON, Jose Martin siegel Discont inued 11/01/20192019 0028[facility] oxymetazoli [facility] 0.05% nasal spray INHALE 2 SPRAYS IN EACH NOSTRIL TWICE A DAY (DISCONT INUE USE AFTER THREE DAYS), Jose Martin siegel Discont inued 11/01/20192019 0028[facility] PNV oral tablet 1 tab(s), Oral, Daily, # 90 tab(s), 0 total refill(s ), Jose Martin meisaias, [facility] pharmacy dispense (Rx) Oral (given by mouth) Discont inued 03/03/2020 0 2019 90.0 0028[facility] PNV oral tablet 1 tab(s), Oral, Daily, # 100 tab(s), 3 total refill(s ), Jose Martin meisaias Oral (given by mouth) Discont inued 09/23/20192019 100.0 00[facility] triamcinolo ne 0.025% topical cream 1 appl(s), Topical, BID, apply a thin film to affected area, X 14 days, # 15 g, 0 total refill(s ), Acute, [facility] pharmacy dispense (Rx) Topica l (on the skin) Complet ed 11/15/2019 0 2019 15.0 0028[facility] triamcinolo ne 0.1% topical cream 1 appl(s), Topical, BID, X 14 days, # 80 g, 0 total refill(s ), Acute, Route to [facility] Topica l (on the skin) Complet ed 05/12/2020 0 2019 80.0 00[facility] Vitamin B6 50 mg oral tablet See Instruct ions, 1/2 tab PO TID for Nausea, # 60 tab(s), 0 total refill(s ), Acute, [facility] dispense (Rx) Complet ed 08/13/2019 9 2018 60.0 0028[facility] Immunizations Combined list of available immunizations from the Department of Defense and Veterans Affairs facilities. Immunization Series Date Given Administered By Site Reaction Lot Number CVX Code Drug Family Day Care Provider Status Comments Source tetanus, diphtheria, acellular pertu is 2019 NICOLÁSER Yeseniaul gorge, left (delt oid) [id number] [employer] complet ed tetanus, diphtheri a, acellular pertussis 12/17/19 Given 0028[facility] influenza virus vaccine, inactivated 2018 GABRIEL Pattersonul gorge, left (delt oid) [id number] [employer], [employer] complet ed influenza virus vaccine, inactivat ed 08/10/19 Given 0028[facility] Results Combined list of recent chemistry, hematology and other laboratory results from Department of Defense and Veterans Affairs, ranging from 15 months to all on record, depending upon the facility. 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 Negative for intraepi thelial lesion or malignan cy. Comments This Pap test was evaluate d with the assistan ce of the Thin Prep Imaging System. Elect ronicall y Signed by ALESSANDRA Westbrook([facility]) Clinical Diagnosi s and History Post Prior History Signed Out Specimen # Interpre tation CPT Codes: A; 34711 The Pap test is a screenin g test for precurso rs of squamous cell carcinom a with an irreduci ble false negative rate of around 5%. It is not designed to detect glandula r lesions. A negative test does not ensure that no disease is present. 04/10 0028[facility] Chemistry Beta hCG, Urine Qual Negative (04/10/20 11:02 AM) 04/[address] [place] [address] Miscellan eous Sendouts Bile Acids Total.LC 3.0 umol/L 02/17 Result Comment: This test was developed and its performance characteris tics determined by [facility]. It has not been cleared or approved by the Food and Drug Administrat ion. Reference Range: All Ages: <9.2 Performed At: 01 [employer] [address] [place] [address] [id number] Devorah Kennedy MD Ph:[phone] [address] [place], [place] [address]cellan eous Sendouts Chenodeoxy cholate.LC 0.80 umol/L 02/17 Result Comment: Reference Range: All Ages: <5.[address] [place], [place] [address]an eous Sendouts Deoxychola te.LC 1.5 umol/L 02/17 Result Comment: Reference Range: All Ages: <3.[address] [place], [place] [address]an eous Sendouts Ursodeoxyc holate.LC <0.10 umol/L 02/17 Result Comment: Reference Range: All Ages: <1.[address] [place], [place] [address]an eous Sendouts Cholate.LC 0.70 umol/L 02/17 Result Comment: Reference Range: All Ages: <2.[address] [place] [address] Chemistry BUN/Creat Ratio 10 02/[address] [place] [address] Chemistry Alk Phos 222 U/L 30 - 120 02/[address] [place] [address] Chemistry Albumin 2.9 g/dL 3.4 - 5.0 02/[address] [place] [address] Chemistry AGAP 9 mmol/L 10 - 20 02/[address] Chemistry Creatinine Level 0.62 mg/dL 0.55 - 1.02 02/[address] [place] [address] Chemistry ALT 22 U/L 12 - 78 02/[address] [place] [address] Chemistry AST 18 U/L 15 - 37 02/17 N Interpretiv e Data: PHLEBOTOMY SHOULD OCCUR PRIOR TO ADMINSTRATI ON OF SULFASALAZI NE TO PREVENT FALSELY DECREASED RESULTS. [address] [place] [address] Chemistry Calcium 8.9 mg/dL 8.5 - 10.1 02/[address] [place] [address] Chemistry BUN 6.0 mg/dL 7.0 - 18.0 02/[address] Chemistry Bilirubin Total 0.6 mg/dL 0.2 - 1.0 02/[address] [place] [address] Chemistry Bilirubin Direct 0.12 mg/dL 0.00 - 0.20 02/[address] Chemistry Chloride 103 mmol/L 98 - 107 02/[address] [place] [address] Chemistry Sodium 136 mmol/L 136 - 145 02/[address] Chemistry Potassium Lvl 3.7 mmol/L 3.5 - 5.1 02/[address] [place] [address] Chemistry Glucose Lvl 69.0 mg/dL 74.0 - 106.0 02/[address] [place] [address] Chemistry CO2 24 mmol/L 21 - 32 02/[address] [place] [address] Chemistry Protein Total 7.1 g/dL 6.4 - 8.2 02/[address] [place] [address] Chemistry eGFR Non-AA 124 mL/min 02/17 N Interpretiv e Data: >= 60= NORMAL OR MILDLY DECREASED GFR 30-59 = MODERATELY DECREASED GFR 15-29 = SEVERELY DECREASED GFR <15 = KIDNEY FAILURE [address] [place] [address] [facility] Chemistry eGFR AA 143 mL/min 02/17 N Interpretiv e Data: >= 60= NORMAL OR MILDLY DECREASED GFR 30-59 = MODERATELY DECREASED GFR 15-29 = SEVERELY DECREASED GFR <15 = KIDNEY FAILURE [address] [place] [address] [facility] Chemistry Gluc Baseline 91 mg/dL 74 - 106 11/18 N Interpretiv e Data: PHLEBOTOMY SHOULD OCCUR PRIOR TO ADMINSTRATI ON OF SULFASALAZI NE TO PREVENT FALSELY DECREASED RESULTS. [address] [place] [address] [facility] Chemistry Gluc 1 Hr 148 mg/dL 65 - 184 11/18 N Interpretiv e Data: PHLEBOTOMY SHOULD OCCUR PRIOR TO ADMINSTRATI ON OF SULFASALAZI NE TO PREVENT FALSELY DECREASED RESULTS. [address] [place] [address] [facility] Chemistry Gluc 2 Hr 162 mg/dL 65 - 138 11/18 H Interpretiv e Data: PHLEBOTOMY SHOULD OCCUR PRIOR TO ADMINSTRATI ON OF SULFASALAZI NE TO PREVENT FALSELY DECREASED RESULTS. [address] [place] [address] [facility] Chemistry Gluc 3 Hr 138 mg/dL 65 - 110 11/18 H Interpretiv e Data: PHLEBOTOMY SHOULD OCCUR PRIOR TO ADMINSTRATI ON OF SULFASALAZI NE TO PREVENT FALSELY DECREASED RESULTS. [address] [place] [address] [facility] Infectiou s Disease Treponema pallidum Ab.EPI NON-REAC TIVE 11/11 Result Comment: INTERPRETAT ION(S): NON-REACTIV E: No laboratory evidence of syphilis infection. A negative result cannot exclude incubating or early primary syphilis. If recent exposure is suspected, submit another sample in 2 - 4 weeks to repeat testing. REACTIVE: Suggest infection with Treponema pallidum at some point in the past, but does not distinguish between treated and untreated infection. All REACTIVE results will automatical ly reflex to a supplementa l Syphilis assay in accordance to the Center for Disease Control and Prevention (CDC) diagnostic algorithm. Methodology : Electrochem iluminescen t immunoassay (ECLIA) Notifiable result/cond ition for Local/State Public Health (PH) department, notify your local [facility] immediately for proper notificatio n. Performed by: [facility] B[facility] [address] [place] [address] [place] [address] 0028[facility] Hematolog y Eos Absolute 0.07 10^3/uL 0.00 - 0.41565 11/11 N 0028[facility] Hematolog y Lymph Absolute 1.55 10^3/uL 1.00 - 4.28551 11/11 N 0028[facility] Hematolog y [place] Absolute 0.35 10^3/uL 0.20 - 0.98661 11/11 N 0028[facility] Hematolog y Baso Absolute <0.04 10^3/uL 0.00 - 0.56280 11/11 N 0028[facility] Hematolog y Imm. Granulocyt e Absolute 0.14 11/11 0028[facility] Hematolog y Neutrophil % Auto 69.8 % 54.0 - 77.0 11/11 N 0028[facility] Hematolog y Lymphocyte % Auto 21.9 % 15.0 - 41.0 11/11 N 0028[facility] Hematolog y Monocyte % Auto 5.0 % 0.0 - 15.0 11/11 N 0028[facility] Hematolog y Imm. Granulocyt e % 2.0 % 0.0 - 2.0 11/11 N 0028[facility] Hematolog y Neutro Absolute 4.94 10^3/uL 2.00 - 7.01439 11/11 N 0028[facility] Hematolog y Eosinophil % Auto 1.0 % 0.0 - 4.0 11/11 N 0028[facility] Hematolog y Basophil % Auto 0.3 % 0.0 - 2.0 11/11 N 0028[facility] Infectiou s Disease HBsAg Screen.LC Negative 11/11 Result Comment: Performed At: 01 [facility] [address] [place], [place] [id number] Theresa Rosales MD Ph:[phone] [address] [place] [address] [facility] Chemistry Gluc 1 Hr 154 mg/dL 65 - 184 11/11 N Interpretiv e Data: PHLEBOTOMY SHOULD OCCUR PRIOR TO ADMINSTRATI ON OF SULFASALAZI NE TO PREVENT FALSELY DECREASED RESULTS. [address] [place] [address] [facility] Hematolog y MCHC 34.1 g/dL 32.0 - 36.0 11/[address] [place] [address] [facility] RDW 12.7 % 10.9 - 15.1 11/[address] [place] [address] [facility] Hematolog y Differenti al? Auto (11/12/19 9:14 AM) 11/[address] [place] [address] [facility] Platelets 276 10^3/uL 130 - [id number] 11/[address] [place] [address] [facility] MPV 9.3 fL 7.0 - 11.0 11/[address] [place] [address] [facility] WBC 7.07 10^3/uL 4.60 - 11.52948 11/[address] [place] [address] [facility] Hemat[facility] RBC 3.68 10^6/uL 3.80 - 5.95036 11/11 L 002-[facility] Hematolog y Hemoglobin 11.0 g/dL 14.0 - 18.0 11/11 L Interpretiv e Data: HEMOPOINT H2 NORMAL RANGES: ADULT MALE: 13.0-18.0 g/Dl ADULT FEMALE: 11.0-16.0 g/dL CHILDREN (2 YRS-TEENAGE ): 11.0-16.0 g/dL [facility] Hematolog y MCH 29.9 pg 27.0 - 36.0 11/[address] [place] [address] [facility] Hematocrit 32.3 g/dL 36.0 - 46.0 11/11 L Interpretiv e Data: NO REFERENCE RANGE ESTABLISHED FOR HEMOPOINT H2. INFANTS (POST- ): 10.0-14.0 g/dL [address] [place] [address] [facility] MCV 87.8 fL 82.0 - 99.0 11/11 N 0028[facility] Urinalysi s UA Micro Ind? Not Indicate d (11/12/19 8:57 AM) 11/11 N 0028[facility] Urinalysi s UA Appear Clear (11/12/19 8:57 AM) 11/11 N 0028[facility] Urinalysi s UA Color Yellow (11/12/19 8:57 AM) 11/11 N 0028[facility] Urinalysi s UA Ketones Negative (11/12/19 8:57 AM) 11/11 N 0028[facility] Urinalysi s UA Bili Negative (11/12/19 8:57 AM) 11/11 N [facility]28[facility] Urinalysi s UA Glucose Negative (11/12/19 8:57 AM) 11/11 N 0028[facility] Urinalysi s UA Blood Negative (11/12/19 8:57 AM) 11/11 N 0028[facility] Urinalysi s UA Spec [place] 1.025 (11/12/19 8:57 AM) 11/11 N 0028[facility] Urinalysi s UA Urobilinog en 0.2 (11/12/19 8:57 AM) 11/11 N 0028[facility] Urinalysi s UA Protein Negative (11/12/19 8:57 AM) 11/11 N 0028[facility] Urinalysi s UA pH 6.5 (11/12/19 8:57 AM) 11/11 N 0028[facility] Urinalysi s UA Leuk Esterase Negative (11/12/19 8:57 AM) 11/11 N 0028[facility] Urinalysi s UA Nitrite Negative (11/12/19 8:57 AM) 11/11 N 0028[facility] Reproduct manolo Studies FHX NTD.LC N (09/23/19 3:12 PM) 09/23 N 0028[facility] Reproduct manolo Studies Prior With Down Syndrome.L C N (09/23/19 3:12 PM) 09/23 N 0028[facility] Reproduct manolo Studies Prior Down Syndrome/O NDT Screen.LC N (09/23/19 3:12 PM) 09/23 N 0028[facility] Reproduct manolo Studies Prior First Trimester Testing.LC N (09/23/19 3:12 PM) 09/23 N 0028[facility] Reproduct manolo Studies Age of Egg Donor (##).LC 27 09/23 0028[facility] Reproduct manolo Studies Previously Elevated AFP.LC N (09/23/19 3:12 PM) 09/23 N 0028[facility] Reproduct manolo Studies Donor Egg.LC N (09/23/19 3:12 PM) 09/23 N 0028[facility] Reproduct manolo Studies Other Indication s. N (09/23/19 3:12 PM) 09/23 [facility] [place] Calculatio n Method. MIGUEL/EDC (09/23/19 3:12 PM) 09/23 N 0028[facility] Reproduct manolo Studies Nbr of Fetuses (#). 1 09/23 [facility] [place] Date of Calc (YYYYMMDD) . [id number] [facility] Gest Age (Decimal, ##.#). 16.5 09/23 0028[facility] Reproduct manolo Studies Insulin Dependent. N (09/23/19 3:12 PM) 09/23 N 0028[facility] Reproduct manolo Studies Ser Int-2 Note: LC Comment 09/23 Result Comment: Please verify all clinical data used in this risk assessment and call [phone] with any corrections . Ailyn Reece, Ph.D., [facility] Principal Genetics Assessment Nurse References: Available upon request Open Spina Bifida (OSB) MoM Cutoffs Arndt 2.5 Black 2.8 IDD 2.0 Twins 4.5 Risk Cutoffs Down Syndrome (DS) cutoff 1:270 Trisomy 18 (T18) cutoff 1:100 For further inquiries contact [facility] Customer Service at [phone] E. Performed At: 01 [facility] [address] [facility] [place], [place] [id number] Mik Nolasco MD Ph:[phone] [address] [place] [address] [facility] Reproduct manolo Studies Ser Int-2 Down Syndrome Interp LC Comment 09/23 Result Comment: Screen Negative for Down syndrome [address] [place] [address] [facility] Reproduct manolo Studies Ser Int-2 OSB Interpreta tion LC Comment 09/23 Result Comment: Screen Negative for [facility]. [facility] Rep[facility] Ser Int-2 Comments: LC Comment 09/23 Result Comment: The [employer] [employer]nec[employer]is ts recommends that all women be counseled regarding the differences between screening and invasive diagnostic testing. [facility] Reproduct manolo Studies Ser Int-2 Trisomy 18 Interpreta tion LC Comment 09/23 Result Comment: Screen Negative for Trisomy [address] [place] [address] [facility] Reproduct manolo Studies Ser Int-2 Trisomy 18 LC Age Risk: 09/23 Result Comment: 1 [facility] 3439 [facility] Reproduct manolo Studies Ser Int-2 Down Syndrome Screenin g Risk: 09/23 Result Comment: <1 in 27061 DSR calculated using maternal age at MIGUEL based on age of donor at time of egg donation. 0028[facility] Reproduct manolo Studies Ser Int-2 Open Spina Bifida LC Screenin g Risk: 09/23 Result Comment: <1 in [address] [facility] Reproduct manolo Studies Ser Int-2 Trisomy 18 Screenin g Risk: 09/23 Result Comment: <1 in [address] 0028[facility] Reproduct manolo Studies Ser Int-2 Down Syndrome LC Age Risk: 09/23 Result Comment: 1 in 883 0028A-[facility] Reproduct manolo Studies Ser Int-2 Gestationa l Age LC 10.4 wk 09/23 0028[facility] Reproduct manolo Studies Ser Int-2 Collected On LC Date: 09/23 Result Comment: 08/10/2019 00[address] Reproduct manolo Studies Ser Int-2 Weight 169 [lb_ap] 09/23 0028[facility] Reproduct manolo Studies Ser Int-2 Collected On Date: 09/23 Result Comment: 09/23/2019 0028[facility] Reproduct manolo Studies Ser Int-2 SECOND TRIMESTER SAMPLE LC Comment 09/23 0028[facility] Reproduct manolo Studies Ser Int-2 Results LC Report 09/23 0028[facility] Reproduct manolo Studies Ser Int-2 FIRST TRIMESTER SAMPLE LC Comment 09/23 0028[facility] Reproduct manolo Studies Ser Int-2 Test Results: LC *Screen Negative * 09/23 0028[facility] Reproduct manolo Studies Ser Int-2 Number of Fetuses LC 1 09/23 0028[facility] Reproduct manolo Studies Ser Int-2 AZEB-A MoM LC 0.77 09/23 00[address] Reproduct manolo Studies AZEB-A Value LC 305.0 ng/mL 09/23 0028A-[facility] Reproduct manolo Studies Ser Int-2 AFP MoM LC 1.24 09/23 00[address]-[facility] Reproduct manolo Studies AFP Value LC 42.8 ng/mL 09/23 00[address] Reproduct manolo Studies Ser Int-2 Weight LC 172 [lb_ap] 09/23 [address] Reproduct manolo Studies Ser Int-2 Gestationa l Age 16.7 wk 09/23 0028[facility] Reproduct manolo Studies Ser Int-2 Maternal Age at MIGUEL LC 28.4 a 09/23 Result Comment: Maternal age at MIGUEL based on age of donor at time of egg donation. 0028[facility] Reproduct manolo Studies Ser Int-2 Gest. Age Based on LC MIGUEL 09/23 Result Comment: 03/04/2020 0028[facility] [facility] Reproduct manolo Studies Ser Int-2 Insulin Dep Diabetes LC No 09/23 0028A-[facility] Reproduct manolo Studies Ser Int-2 Race LC Black 09/23 0028A[facility] Reproduct manolo Studies hCG Value LC 28.8 IU/mL 09/23 0028A-[facility] Reproduct manolo Studies Ser Int-2 uE3 MoM LC 0.85 09/23 0028A[facility] Reproduct manolo Studies uE3 Value LC 0.83 ng/mL 09/23 0028A[facility] Reproduct manolo Studies Ser Int-2 TERENCE MoM LC 0.94 09/23 0028A-[facility] Reproduct manolo Studies TERENCE Value LC 142.0 pg/mL 09/23 0028A[facility] Reproduct manolo Studies Ser Int-2 hCG MoM LC 1.01 09/23 0028[facility] Reproduct manolo Studies Prior Down Syndrome/O NDT Screen.LC N (08/10/19 1:33 PM) 08/10 N 0028A[facility] Reproduct manolo Studies Age of Egg Donor (##).LC 29 08/10 0028A-[facility] Reproduct manolo Studies Prior With Down Syndrome.L C N (08/10/19 1:33 PM) 08/10 N 0028A[facility] Reproduct manolo Studies FHX NTD.LC N (08/10/19 1:33 PM) 08/[address] [place] [address] [facility] Reproduct manolo Studies Prior First Trimester Testing.LC N (08/10/19 1:33 PM) 08/[address] [place] [address] Reproduct manolo Studies GA Date of Calc (YYYYMMDD) .LC [id number] 08/[address] [place] [address] Reproduct manolo Studies Insulin Dependent. LC N (08/10/19 1:33 PM) 08/[address] [place] [address] Reproduct manolo Studies Gest Age (Decimal, ##.#).LC 10.3 08/[address] [place] [address] Reproduct manolo Studies Nbr of Fetuses (#).LC 1 08/[address] [place] [address] Reproduct manolo Studies MIGUEL/EDC Date (YYYYMMDD) .LC [id number] 08/[address] [place] [address] Reproduct manolo Studies GA Calculatio n Method.LC LMP (08/10/19 1:33 PM) 08/[address] [place] [address] Reproduct manolo Studies Donor Egg.LC N (08/10/19 1:33 PM) 08/[address] [place] [address] Reproduct manolo Studies Previously Elevated AFP.LC N (08/10/19 1:33 PM) 08/[address] [place] [address] Reproduct manolo Studies Other Indication s.LC N (08/10/19 1:33 PM) 08/[address] [place] [address] Reproduct manolo Studies Ser Int-1 Submit Part 2 Sample Using LC Date: 08/10 Result Comment: Serum Integrated 2 Test Code 280311 Based on gest age provided, draw sample after: 09/11/[address] [place] [address] Reproduct manolo Studies Ser Int-1 Test Results: LC Comment 08/10 Result Comment: Risk assessment pending second sample. [address] [place] [address] Reproduct manolo Studies Ser Int-1 Gestationa l Age LC 10.4 wk 08/[address] [place] [address] Reproduct manolo Studies Ser Int-1 Results LC Report 08/[address] [place] [address] Reproduct manolo Studies Ser Int-1 Number of Fetuses LC 1 08/[address] [place] [address] Reproduct manolo Studies Ser Int-1 Weight LC 169 [lb_ap] 08/[address] [place] [address] Reproduct manolo Studies Ser Int-1 Gest. Age Based on LC MIGUEL 08/10 Result Comment: 03/04/[address] [place] [address] Reproduct manolo Studies Ser Int-1 Race LC Black 08/[address] [place] [address] Reproduct manolo Studies Ser Int-1 Maternal Age at MIGUEL LC 28.6 a 08/10 Result Comment: Maternal age at MIGUEL based on age of donor at time of egg donation. [address] [place] [address] Reproduct manolo Studies AZEB-A Value LC 305.0 ng/mL 08/[address] [place] [address] Reproduct manolo Studies Ser Int-1 Note LC Comment 08/10 Result Comment: This test does not screen for open spina bifida (OSB) in the first trimester. Please verify all clinical data used in this risk assessment and call with any corrections . Ailyn Reece, Ph.D., [facility] Principal Genetics Assessment Nurse References: Available upon request For further inquiries contact [employer] Customer Service at [phone] E. Performed At: 01 [facility] [address] [place], [place] [id number] Mik Nolasco MD Ph:[phone] [address] [place] [address] Reproduct manolo Studies Ser Int-1 Comments LC Comment 08/10 Result Comment: Please submit a second trimester sample between 15.0 - 21.9 weeks gestation to complete risk assessment for Down syndrome, trisomy 18 and open spina bifida. The [employer] [employer] recommends that all women be counseled regarding the differences between screening and invasive diagnostic testing. [facility] Race-Mothe r Black (07/14/19 2:20 PM) 07/[address] [place] [address] CFPS Pt. Symptoms.K S none 07/[address] [place], [place] [address]S Ind. for Test.KS Scrn (07/14/19 2:20 PM) 07/[address] Contact.JOELLE 07/[address] [place] [address] Testing Consent.KS Yes (07/14/19 2:20 PM) [address] Family Hx?.KS No (07/14/19 2:20 PM) 07/[address] CFPS Pt. Race-Fathe r.KS Black (07/14/19 2:20 PM) 07/[address] [place] [address] Cystic Fibrosis Scrn.KS None of 39 Common Mutation s, see below. 07/14 Result Comment: INTERPRETAT ION(S): MUTATION IDENTIFIED: None of 39 Common Mutations Decreased carrier risk as noted below Using the methodology described below, this sample is negative for the 39 mutations noted. This panel only includes the 39 most common cystic fibrosis mutations and these results do not rule out the possibility that this individual could be a carrier of a mutation not detected by this test. The likelihood of this patient still being a carrier is dependent on the patient's ethnic background. Please see table below for the risk in various ethnic populations . For other ethnic groups, data is insufficien t to calculate a specific post-test risk. Also note, this information applies only to individuals with no family history of cystic fibrosis or clinical symptoms suggestive of CFTR-relate d disease. For those clinical situations, the risk may be significant ly higher. The following information about estimated carrier risk applies to this specific mutation panel and can be used in the genetic counseling for this individual: Detection Rate 90.5% Pre-Coat Joiner Lockstitch Risk 1:25 Carrier risk after neg test 1:254 Ashkenazi Cheondoism Detection Rate 94% Pre-Coat Joiner Lockstitch Risk 1:24 Carrier risk after neg test 1:384 Detection Rate 67.5% Pre-Coat Joiner Lockstitch Risk 1:61 Carrier risk after neg test 1:186 Slovak Detection Rate 74% Pre-Coat Joiner Lockstitch Risk 1:58 Carrier risk after neg test 1:218 Slovak Detection Rate 49% Pre-Coat Joiner Lockstitch Risk 1:94 Carrier risk after neg test 1:184 The risk of cystic fibrosis for a specific requires combining the above carrier risk with information about the partner. METHODS: The CFTR gene was tested for the presence of the following specific mutations utilizing an allele specific primer extension/l iquid bead-based assay (Reissued ): [id number], 3659delC, R334W, R117H, S549R, R347H, 621+1G>T, G551D, A455E, [id number], R553X, 2789+5G>A, V520F, R560T, Y5945C, 1717-1G>A, A1817N, 3849+10kb, G542X, S8125A, R347P, 2184delA, 1898+1G>A, 1078delT, 3120+1G>A, G85E, 711+1G>T, S549N, 3876delA, 3905insT, 394delTT, 2183AA>G, Y122X, A559T, 1898+5G>T, 2307insA, J3364Z, H9958D, G9872J This panel has a calculated clinical sensitivity in different ethnic populations as noted above. Data collection on sensitivity as performed in our laboratory is ongoing. CPT Codes: CFTR Gene Analysis; Common Variants [id number] BACKGROUND: Cystic fibrosis (CF) is an autosomal recessive disease affecting populations with an incidence between 09/1999 and 09/2999. Cystic fibrosis also occurs in other ethnic populations , but with a lower incidence for most groups. The gene for the disease, the CF transmembra ne conduction regulator (CFTR), has been identified and over 1800 disease-cau sing mutations have been described. The diagnosis of CF remains clinical, based on typical pulmonary and/or gastrointes tinal features and a positive sweat chloride test. The presence of pathologic CFTR mutations on both chromosomes also confirms the diagnosis. The most common CFTR mutation, [id number], is found on about 70% of CF chromosomes worldwide. Other mutations are significant ly rarer, most represent less than 0.5% of all CF mutations. (Diaz et al (2002) [place] in Med 5:379-391). A distinction is made between cystic fibrosis and CFTR-relate d illness. There is an increased incidence of milder pulmonary and gastrointes tinal symptoms in individuals with a single mutation and/or mutations associated with mild disease. These patients are generally not considered to have cystic fibrosis. Genotype-ph enotype correlation s are not well established for these circumstanc es and the findings of a single mutation or mild/rare mutations should not be used to predict the likelihood of symptoms or expected disease progression . This test was performed by: [facility] /[facility] DNA Diagnostic Laboratory [facility] [place] [address] DSN [phone] CAP# [id number] CLIP# [id number] This test was developed and its performance determined by the Molecular Diagnostic Laboratory, [facility], [facility]. It has not been cleared or approved by the U.S. Food and Drug Administrat ion. The FDA has determined that such clearance or approval is not necessary. This test is used for clinical purposes. Pursuant to the requirement s of CLIA '88, this laboratory has established and verified the test's accuracy and precision. Report electronica lly signed by: Valentin Miranda MD, [facility] Director, Molecular Diagnostic Laboratory [facility] ABSC: Negative (07/14/19 2:20 PM) 07/[address] [place] [address] Blood Bank OP ABORh B POS 07/[address] [place] [address] Blood Bank ABORh Retype B POS 07/[address] [place] [address] Urinalysi s UA Color Yellow (07/14/19 1:40 PM) 07/[address] [place] [address] Urinalysi s UA Urobilinog en 1.0 (07/14/19 1:40 PM) 07/[address] [place] [address] Urinalysi s UA Nitrite Negative (07/14/19 1:40 PM) 07/14 N 0028A[facility] Urinalysi s UA pH 6.5 (07/14/19 1:40 PM) 07/14 [facility] Ur[facility] UA Protein Trace *NA* (07/14/19 1:40 PM) 07/[address] [place] [address] [facility] Urinalysi s UA Spec [place] >=1.030 *ABN* (07/14/19 1:40 PM) 07/[address] [place] [address] [facility] Urinalysi s UA Blood Negative (07/14/19 1:40 PM) 07/14 [facility] Urinalys[facility] s UA Bili Negative (07/14/19 1:40 PM) 07/[address] [place] [address] [facility] Urinalysi s UA Ketones Trace (07/14/19 1:40 PM) 07/[address] [place] [address] [facility] Urinalysi s UA Appear Clear (07/14/19 1:40 PM) 07/[address] [place] [address] [facility] Urinalysi s UA Glucose Negative (07/14/19 1:40 PM) 07/14 [facility] Ur[facility] UA Micro Ind? Not Indicate d (07/14/19 1:40 PM) 07/14 N [facility] Urinalys[facility] s UA Leuk Esterase Negative (07/14/19 1:40 PM) 07/[address] [place], [place] [address] Infectiou s Disease Varicella Virus IgG.EPI POSITIVE 07/14 Result Comment: INTERPRETAT ION(S): NEGATIVE: Absence of detectable VZV IgG antibodies. A negative result indicates no detectable VZV antibody, but does not rule out acute infection. It should be noted that the test usually scores negative in infected patients during the incubation period and the early stages of infection. If exposure to varicella-z bárbara virus is suspected, despite a negative finding, a second sample should be collected and tested no less than one or two weeks later. EQUIVOCAL: Please obtain additional specimen for re-testing. POSITIVE: Presence of detectable VZV IgG antibodies. A positive result generally indicates exposure to the pathogen or administrat ion of specific immunoglobu ahmet, but it is no indication of active infection or stage of disease. The use of icteric or lipemic serum, or serum exhibiting hemolyzed or microbial growth should be avoided. The results from this assay are not by themselves diagnostic and should be considered in association with other clinical data and patient symptoms. Results from immunosuppr essed patients should be interpreted with caution. The performance characteris tics with individuals vaccinated with VZV (LAURA Strain) have not been established . Diagnosis of infectious diseases should not be established on the basis of a single test result, but should be determined in conjunction with clinical findings and other diagnostic procedures as well as in association with medical judgment. Although patient samples are washed away prior to the addition of the mouse monoclonal antibody (conjugate) , the performance characteris tics of HAMA and rheumatoid factor samples have not been established and may occasionall y influence results. Methodology : Chemilumine scent immunoassay (CLIA) Performed by: Epidemiolog y Laboratory Service [facility] [address] [place] [id number] [place] [address] Immunolog y/Serolog y Rubella Ab Screen Pos 46 *ABN* (07/14/19 1:39 PM) 07/14 A Interpretiv e Data: Ingestion of Biotin or Biotin-cont aining supplements >5 mg/day within 8 hours of specimen collection has known interferenc e on the result of this test. NEGATIVE: Patients have Rubella IgG concentrati ons less than 10 IU/mL. LOW POSITIVE: Patients have Rubella IgG concentrati ons between 10 and 14 IU/mL. POSITIVE: Patients have Rubella IgG concentrati ons greater than or equal to 15 IU/mL. 0125[facility] Immunolog y/Serolog y Syphilis Screen Non-Reac tive (07/14/19 1:39 PM) 07/14 N 0125A[facility] Hematolog y Hgb Solubility LC Negative 07/14 0028A-Na [facility] Hematolog y Hgb S LC 0.0 % 07/14 0028A-Na [facility] Hematolog y Hgb A LC 97.4 % 07/14 0028A-Na [facility] Hematolog y Hgb F LC 0.0 % 07/14 0028A[facility] Hematolog y Hgb Variant LC 0.0 % 07/14 [facility] Hemat[facility] Hgb A2 LC 2.6 % 07/14 0028[facility] Hematolog y Hgb C LC 0.0 % 07/14 [facility] Hematolog y Hgb Interpreta tion LC Comment 07/14 Result Comment: Normal adult hemoglobin present. Performed At: [address] [id number] Babatunde Matthew MD Ph:[phone] [address] [place] [address] Infectiou s Disease HIV-1/O/2. EPI NON-REAC TIVE 07/14 Result Comment: INTERPRETAT ION(S): This method is a screening procedure for the detection of HIV p24 Antigen and Antibodies to HIV-1, including Group O, and/or HIV-2. NON-REACTIV E: HIV-1 antigen and HIV-1 / HIV-2 antibodies were not detected. No laboratory evidence of HIV infection. A negative test results does not exclude the possibility of exposure to or infection with HIV. HIV antibodies and/or p24 antigen may be undetectabl e in some stages of the infection and in some clinical conditions. If acute HIV infection is suspected, consider submitting another specimen to a reference laboratory for HIV-1 RNA. SCREEN REACTIVE - CONFIRMATIO N TO FOLLOW: Possible presence of HIV-1 antibodies, HIV-2 antibodies and/or HIV-1 p24 antigen. Specimen will reflex to the confirmatio n testing that fulfills the Center for Disease Control and Prevention' s HIV diagnostic algorithm. Refer to [facility] Lab Guide for additional information : [email or web address]/twan [email or web address]/Megan jaimes/[email or web address]/lab _guide.aspx Testing performed by Irwin mcmahon. Performed by: Epidemiolog y Laboratory Service [facility] [address] [place] [address] [place] [address] [place] [address] [facility] Infectiou s Disease GC Scrn Neg 12 (07/14/19 1:37 PM) 07/14 N Interpretiv e Data: The Aptima Combo 2 Assay is a target amplificati on nucleic acid probe test that utilizes target capture for the in vitro qualitative detection and differentia tion of ribosomal RNA (rRNA) from Chlamydia trachomatis (CT) and/or Neisseria gonorrhoeae (GC) in female cervical/va ginal swabs, male urethral swabs, and male urine specimens to aid in the diagnosis of chlamydial and/or gonococcal urogenital disease using the Hydrocision System. Female urine has been validated by [facility]. A first catch urine specimen is acceptable, but may detect up to 10% fewer infections when compared with vaginal and endocervica l swab specimens. Performance characteris tics for female urine samples were determined by [facility]. The limit of detection for female urine samples is 1.25 IFU/mL for CT and 12.5 GC cells/mL for GC. A positive result indicates that DNA of Chlamydia trachomatis (CT) and/or Neisseria gonorrhoeae (GC) is present in the specimen tested and strongly supports a diagnosis of chlamydial/ gonorrheal infection. For those patients for whom a false positive result may have adverse psycho-soci al impact, the CDC recommends retesting IAW regulations /SOP. A negative result indicates that DNA for CT and/or GC was not detected in the specimen. A negative result does not exclude the possibility of infection. Improper specimen collection, concurrent antibiotic therapy, presence of inhibitors, or low number of organism in the specimen may cause false negative results. When clinical indications strongly suggest gonococcal or chlamydia infection, additional specimens should be collected for testing. A result of indetermina te indicates that a new specimen should be collected and submitted for further testing. The performance of the Aptima 2 Assay has not been evaluated in women and adolescents less than 14 years. The Aptima Combo 2 Assay is not intended for the evaluation of suspected sexual abuse or for other medico-lega l indications . The assay has not been evaluated with patients who are currently being treated with antimicrobi al agents active against CT or GC. In general, this assay should not be used to assess therapeutic success or failure since nucleic acids from these organisms may persist for 3 weeks or more following antimicrobi al therapy. Results should be interpreted in conjunction with other laboratory and clinical information . 0125A-[facility] Infectiou s Disease Chlamydia Scrn Neg 6 (07/14/19 1:37 PM) 07/14 N Interpretiv e Data: The Aptima Combo 2 Assay is a target amplificati on nucleic acid probe test that utilizes target capture for the in vitro qualitative detection and differentia tion of ribosomal RNA (rRNA) from Chlamydia trachomatis (CT) and/or Neisseria gonorrhoeae (GC) in female cervical/va ginal swabs, male urethral swabs, and male urine specimens to aid in the diagnosis of chlamydial and/or gonococcal urogenital disease using the Hydrocision System. Female urine has been validated by [facility]. A first catch urine specimen is acceptable, but may detect up to 10% fewer infections when compared with vaginal and endocervica l swab specimens. Performance characteris tics for female urine samples were determined by [facility]. The limit of detection for female urine samples is 1.25 IFU/mL for CT and 12.5 GC cells/mL for GC. A positive result indicates that DNA of Chlamydia trachomatis (CT) and/or Neisseria gonorrhoeae (GC) is present in the specimen tested and strongly supports a diagnosis of chlamydial/ gonorrheal infection. For those patients for whom a false positive result may have adverse psycho-soci al impact, the CDC recommends retesting IAW regulations /SOP. A negative result indicates that DNA for CT and/or GC was not detected in the specimen. A negative result does not exclude the possibility of infection. Improper specimen collection, concurrent antibiotic therapy, presence of inhibitors, or low number of organism in the specimen may cause false negative results. When clinical indications strongly suggest gonococcal or chlamydia infection, additional specimens should be collected for testing. A result of indetermina te indicates that a new specimen should be collected and submitted for further testing. The performance of the Aptima 2 Assay has not been evaluated in women and adolescents less than 14 years. The Aptima Combo 2 Assay is not intended for the evaluation of suspected sexual abuse or for other medico-lega l indications . The assay has not been evaluated with patients who are currently being treated with antimicrobi al agents active against CT or GC. In general, this assay should not be used to assess therapeutic success or failure since nucleic acids from these organisms may persist for 3 weeks or more following antimicrobi al therapy. Results should be interpreted in conjunction with other laboratory and clinical information . 0125[facility] Hematolog y MPV 9.3 fL 7.0 - 11.0 07/14 N 0028A-[facility] Hematolog y RDW 11.9 % 10.9 - 15.1 07/14 N 0028A[facility] Hematolog y Platelets 404 10^3/uL 130 - [id number] 07/14 H 0028[facility] Hematolog y MCH 29.6 pg 27.0 - 36.0 07/14 N 0028[facility] Hematolog y MCHC 34.8 g/dL 32.0 - 36.0 07/14 N 0028[facility] Hematolog y MCV 85.0 fL 82.0 - 99.0 07/14 N 0028[facility] Hematolog y Hemoglobin 12.4 g/dL 14.0 - 18.0 07/14 L Interpretiv e Data: HEMOPOINT H2 NORMAL RANGES: ADULT MALE: 13.0-18.0 g/Dl ADULT FEMALE: 11.0-16.0 g/dL CHILDREN (2 YRS-TEENAGE ): 11.0-16.0 g/dL [facility] Hemat[facility] y Hematocrit 35.6 g/dL 36.0 - 46.0 07/14 L Interpretiv e Data: NO REFERENCE RANGE ESTABLISHED FOR HEMOPOINT H2. INFANTS (POST- ): 10.0-14.0 g/dL 0028A[facility] Hematolog y WBC 6.76 10^3/uL 4.60 - 11.89271 07/14 N 0028A[facility] Hematolog y RBC 4.19 10^6/uL 3.80 - 5.64612 07/14 N 0028[facility] Hematolog y Lymphocyte % Auto 35.7 % 15.0 - 41.0 07/14 N 0028[facility] Hematolog y Neutrophil % Auto 53.7 % 54.0 - 77.0 07/14 L 0028[facility] Hematolog y Baso Absolute 0.05 10^3/uL 0.00 - 0.02518 07/14 N 0028A[facility] Hematolog y Imm. Granulocyt e Absolute <0.04 07/14 0028[facility] Hematolog y Eos Absolute 0.08 10^3/uL 0.00 - 0.90690 07/14 N 0028[facility] Hematolog y [place] Absolute 0.58 10^3/uL 0.20 - 0.14126 07/14 N 0028[facility] Hematolog y Lymph Absolute 2.41 10^3/uL 1.00 - 4.22957 07/14 N 0028[facility] Hematolog y Neutro Absolute 3.63 10^3/uL 2.00 - 7.75929 07/14 N 0028[facility] Hematolog y Imm. Granulocyt e % 0.1 % 0.0 - 2.0 07/14 N 0028[facility] Hematolog y Basophil % Auto 0.7 % 0.0 - 2.0 07/14 N [facility] Hematolog y Eosinophil % Auto 1.2 % 0.0 - 4.0 07/14 N 0028[facility] Hematolog y Monocyte % Auto 8.6 % 0.0 - 15.0 07/14 N [facility]28[facility] Chemistry Beta hCG, Urine Qual Positive *ABN* ( 9 3:50 PM) 07/02 A 0028A-Na [facility] [facility] Vital Signs Combined list of inpatient and outpatient Vital Signs from Department of Defense and Veterans Affairs, ranging from 12 months to all on record, depending upon the facility. Vital Sign Value Date Comments Source Systolic Blood Pressure 115 mm[Hg] 04/14/20 20 21:53:00 0028A-[facility] Diastolic Blood Pressure 77 mm[Hg] 020 21:53:00 0028A[facility] Temperature Tympanic 37 Vanda 04/14/2020 21:53:00 0028A[facility] Respiratory Rate 14 br/min 04/14/2020 21:53:00 0028A[facility] Mean Arterial Pressure, Cuff (Calc) 90 mm[Hg] 04/14/2020 21:53:00 0028A[facility] Peripheral Pulse Rate 65 bpm 04/14/2020 21:53:00 0028A[facility] Blood Pressure Manual Automatic 04/14/2020 21:53:00 0028A[facility] Heart Rate Monitored 102 bpm 02/18/2020 21:00:00 0028C-[facility] Blood Pressure Location Right arm 02/18/20 21:00:00 0028C[facility] Blood Pressure Method Automatic 02/18/2020 21:00:00 0028C[facility] Temperature Oral 36.6 Vanda 02/18/2020 21:00:00 0028C[facility] Temperature Tympanic 37.4 Vanda 08/10/2019 21:14:00 0028C[facility] Mean Arterial Pressure, Cuff (Calc) 87 mm[Hg] 02/24/2020 20:28:00 0028C[facility] Systolic Blood Pressure 118 mm[Hg] 02/24/20 20 20:28:00 0028C[facility] Diastolic Blood Pressure 72 mm[Hg] 020 20:28:00 0028C[facility] Respiratory Rate 12 br/min 02/24/2020 20:28:00 0028C[facility] Peripheral Pulse Rate 84 bpm 02/24/2020 20:28:00 0028C[facility] Temperature Tympanic 36.5 Vanda 02/24/2020 20:28:00 0028C[facility] Peripheral Pulse Rate 76 bpm 11/05/2019 22:31:00 0028C[facility] Systolic Blood Pressure 114 mm[Hg] 11/05/19 20 22:31:00 0028[facility] Diastolic Blood Pressure 72 mm[Hg] 020 22:31:00 0028[facility] Mean Arterial Pressure, Cuff (Calc) 86 mm[Hg] 11/05/2019 22:31:00 0028[facility] Temperature Tympanic 36.5 Vanda 11/05/2019 22:31:00 0028C[facility] Respiratory Rate 16 br/min 11/05/2019 22:31:00 0028C[facility] Blood Pressure Manual Automatic 09/22/2019 03:29:00 0028A[facility] Temperature Tympanic 37.1 Vanda 09/22/2019 03:29:00 0028A[facility] Temperature Oral 36.6 Vanda 01/14/2020 21:00:00 0028C[facility] Blood Pressure Location Right arm 01/14/20 21:00:00 0028C[facility] Blood Pressure Method Automatic 01/14/2020 21:00:00 0028C[facility] Temperature Tympanic 36.6 Vanda 09/23/2019 22:43:00 0028C[facility] Temperature Tympanic 36.6 Vanda 02/18/2020 21:55:00 0028C[facility] Systolic Blood Pressure 115 mm[Hg] 02/18/20 20 21:55:00 0028[facility] Diastolic Blood Pressure 69 mm[Hg] 020 21:55:00 0028[facility] Mean Arterial Pressure, Cuff (Calc) 84 mm[Hg] 02/18/2020 21:55:00 0028C[facility] Peripheral Pulse Rate 102 bpm 02/18/2020 21:55:00 0028[facility] Respiratory Rate 18 br/min 02/18/2020 21:55:00 0028[facility] Mean Arterial Pressure, Cuff (Calc) 78 mm[Hg] 01/14/2020 21:27:00 0028C[facility] Systolic Blood Pressure 115 mm[Hg] 01/14/20 20 21:27:00 0028[facility] Diastolic Blood Pressure 60 mm[Hg] 020 21:27:00 0028[facility] Temperature Tympanic 36.6 Vanda 01/14/2020 21:27:00 0028C[facility] Respiratory Rate 12 br/min 01/14/2020 21:27:00 0028C[facility] Peripheral Pulse Rate 98 bpm 01/14/2020 21:27:00 0028C[facility] Peripheral Pulse Rate 70 bpm 04/10/2020 18:24:00 0028[facility] Mean Arterial Pressure, Cuff (Calc) 75 mm[Hg] 04/10/2020 18:24:00 0028[facility] Systolic Blood Pressure 102 mm[Hg] 04/10/20 20 18:24:00 0028[facility] Diastolic Blood Pressure 61 mm[Hg] 18:24:00 0028[facility] Respiratory Rate 18 br/min 04/10/2020 18:24:00 0028[facility] Temperature Oral 36.4 Vanda 04/10/2020 18:24:00 0028C[facility] Blood Pressure Manual Automatic 04/10/2020 18:24:00 0028C[facility] Systolic Blood Pressure 120 mm[Hg] 11/01/19 20 22:55:00 0028[facility] Diastolic Blood Pressure 69 mm[Hg] 020 22:55:00 0028[facility] Mean Arterial Pressure, Cuff (Calc) 86 mm[Hg] 11/01/2019 22:55:00 0028C[facility] Respiratory Rate 16 br/min 11/01/2019 22:55:00 0028C[facility] Peripheral Pulse Rate 69 bpm 11/01/2019 22:55:00 0028C[facility] Temperature Temporal 36.7 Vanda 11/01/2019 22:55:00 0028C[facility] Blood Pressure Manual Automatic 11/01/2019 22:55:00 0028[facility] Temperature Tympanic 36.9 Vanda 12/17/2019 17:51:00 0028[facility] Mean Arterial Pressure, Cuff (Calc) 85 mm[Hg] 12/17/2019 17:51:00 0028C[facility] Respiratory Rate 16 br/min 12/17/2019 17:51:00 0028C[facility] Peripheral Pulse Rate 82 bpm 12/17/2019 17:51:00 0028[facility] Systolic Blood Pressure 120 mm[Hg] 12/17/19 17:51:00 0028C[facility] Diastolic Blood Pressure 68 mm[Hg] 020 17:51:00 0028C[facility] Temperature Temporal Artery 36.5 Vanda 04/28/2020 21:49:00 0028C[facility] Blood Pressure Manual Automatic 04/28/2020 21:49:00 0028C[facility] Respiratory Rate 16 br/min 04/28/2020 21:49:00 0028[facility] Mean Arterial Pressure, Cuff (Calc) 82 mm[Hg] 04/28/2020 21:49:00 0028[facility] Peripheral Pulse Rate 56 bpm 04/28/2020 21:49:00 0028[facility] Systolic Blood Pressure 103 mm[Hg] 04/28/20 20 21:49:00 0028[facility] Diastolic Blood Pressure 71 mm[Hg] 020 21:49:00 0028[facility] Temperature Temporal 37.6 Vanda 06/28/2019 19:27:00 0028C[facility] Blood Pressure Manual Automatic 06/28/2019 19:27:00 0028C[facility] Respiratory Rate 16 br/min 02/10/2020 21:44:00 0028C[facility] Peripheral Pulse Rate 79 bpm 02/10/2020 21:44:00 0028C[facility] Temperature Tympanic 36.6 Vanda 02/10/2020 21:44:[address] [place] [address] Mean Arterial Pressure, Cuff (Calc) 94 mm[Hg] 02/10/2020 21:44:[address] [place] [address] Systolic Blood Pressure 126 mm[Hg] 02/10/20 20 21:44:[address] [place] [address] Diastolic Blood Pressure 78 mm[Hg] 020 21:44:[address] [place] [address] Temperature Oral 36.5 Vanda 02/24/2020 20:00:[address] [place] [address] Blood Pressure Location Right arm 02/24/20 20:00:[address] [place] [address] Blood Pressure Method Automatic 02/24/2020 20:00:[address] [place] [address] Procedures Combined list of: 1) Procedures from Department of Veterans Affairs facilities going back up to [facility] 18 months, not all [place] non-surgical procedures are included; 2) All procedures from the Department of [facility] facilities. Procedure Procedure Type Code Date Perfomer Comments Gudelia isaias Tonsillectomy Tonsillectomy (procedure) [id number] 09/08/[address] [place] [address] Social History Combined list of available smoking, tobacco, and other social history from [facility] of [facility] and [facility] facilities. Social History Type Response Date Comment Alexandra isaias Smoking Status Never (less than 100 in lifetime) 04/28/2020 Unknown Organization Sex Representation Female (finding) 04/25/2019 Unknown Organization Sexual Orientation [address] [place] [address] Gender identity [address] [place] [address] Assessment and Plan Combined list of future care activities from Department of [facility] and [facility] facilities (e.g., assessment and plan notes, appointments, orders, and referrals). Additional future care activities may be listed in the Plan of Care section. Result Assessment and Plan Date Source Assessment and Plan Extracted from:Title : Office Clinic Note Author: REBECA BAZAN Date: 04/28/20 1. T inea versicolor R x for topical steroid; has not responded to antifungal so uncertain diagnosis. Referring to dermatology for further evaluation. Ordered: triamcinolone topical, 1 appl(s), Topical, BID, X 14 days, # 80 g, 0 total refill(s), Acute, [facility]No refills remaining[facility] 64010 - Clinic Est Level 4 Medical Referral Request, = 04/28/2020, Routine, Dermatology, unknown pruritic rash, Evaluate and Treat, Future Order, Appoint to [facility], [id number], Tinea versicolor 2. S kin tag Risks and benefits of procedure discussed with patient, who w ished to proceed with removal of acrochordon. Area cleaned thoroughly with alcohol and Betadine. E xcision was performed with sharp scissors. Pressure was applied, and hemostasis was achieved via silver nitrate. Bandage was applied and post-procedural care was described to patient, who verbalized understanding. EBL: <3 mL Pre-procedural pain: 0 Post-procedural pain: 0 Ordered: [id number] - Clinic Est Level 4 Excision Benign Lesion Scalp Neck Hand Feet .6-1.0cm [id number] All questions answered and appropriate patient education provided to patient/family. Return precautions, if relevant, were discussed. P atient/family instructed to use the [employer] Portal for patient handouts; appropriate handouts added P ortions of the note completed through use of [employer]; if errors are detected please ask for clarification. Extracted from:Title: [facility] note-Rash Author: HUGO CASILLAS Date: 04/14/20 1. T inea corporis p ossible fungal etiology vs eczema. Discussed these possible diagnoses with patient. Trial of clotrimazole prescribed. Recommend return for further evaluation if not improving after 1-2 weeks of use. Also discussed emollient treatment for possible eczema. Ordered: clotrimazole topical, 1 appl(s), Topical, BID, # 28 g, 1 total refill(s), Acute, Route to [facility] [[facility] Rx: #[id number] x 09/08 refills remaining, last filled 04/14/20] Extracted from:Title: Ambulatory Patient Education Author: HUGO CASILLAS Date: 04/14/20 Patient Education Materials Follows:Disease Body Ringworm Body ringworm is an infection of the skin that often causes a ring-shaped rash. Body ringworm is also called tinea corporis. Body ringworm can affect any part of your skin. This condition is easily spread from person to person (is very contagious). What are the causes? This condition is caused by fungi called dermatophytes. The condition develops when these fungi grow out of control on the skin. You can get this condition if you touch a person or animal that has it. You can also get it if you share any items with an infected person or pet. These include: Clothing, bedding, and towels. Brushes or smiley. Gym equipment. Any other object that has the fungus on it. What increases the risk? You are more likely to develop this condition if you: Play sports that involve close physical contact, such as wrestling. Sweat a lot. Live in areas that are hot and humid. Use public showers. Have a weakened immune system. What are the signs or symptoms? Symptoms of this condition include: Itchy, raised red spots and bumps. Red scaly patches. A ring-shaped rash. The rash may have: A clear center. Scales or red bumps at its center. Redness near its borders. Dry and scaly skin on or around it. How is this diagnosed? This condition can usually be diagnosed with a skin exam. A skin scraping may be taken from the affected area and examined under a microscope to see if the fungus is present. How is this treated? This condition may be treated with: An antifungal cream or ointment. An antifungal shampoo. Antifungal medicines. These may be prescribed if your ringworm: Is severe. Keeps coming back. Lasts a long time. Follow these instructions at home: Take [id number] and prescription medicines only as told by your health care provider. If you were given an antifungal cream or ointment: Use it as told by your health care provider. Wash the infected area and dry it completely before applying the cream or ointment. If you were given an antifungal shampoo: Use it as told by your health care provider. Leave the shampoo on your body for 3 5 minutes before rinsing. While you have a rash: Wear loose clothing to stop clothes from rubbing and irritating it. Wash or change your bed sheets every night. Disinfect or throw out items that may be infected. Wash clothes and bed sheets in hot water. Wash your hands often with soap and water. If soap and water are not available, use hand optics technical officer. If your pet has the same infection, take your pet to see a surveillance officer for treatment. How is this prevented? Take a bath or shower every day and after every time you work out or play sports. Dry your skin completely after bathing. Wear sandals or shoes in public places and showers. Change your clothes every day. Wash athletic clothes after each use. Do not share personal items with others. Avoid touching red patches of skin on other people. Avoid touching pets that have bald spots. If you touch an animal that has a bald spot, wash your hands. Contact a health care provider if: Your rash continues to spread after 7 days of treatment. Your rash is not gone in 4 weeks. The area around your rash gets red, warm, tender, and swollen. Summary Body ringworm is an infection of the skin that often causes a ring-shaped rash. This condition is easily spread from person to person (is very contagious). This condition may be treated with antifungal cream or ointment, antifungal shampoo, or antifungal medicines. Take jfcc-ogp-ehwgqkr and prescription medicines only as told by your health care provider. This information is not intended to replace advice given to you by your health care provider. Make sure you discuss any questions you have with your health care provider. Document Released: 08/22/2001 Document Revised: 04/23/2019 Document Reviewed: 04/23/2019 [employer] Patient Education 2019 [employer]. Extracted from:Title: Post OBGYN Office Clinic Note Author: MEMO AGUERO PA Date: 04/10/20 1. P ost [age] y/o s/p with uncomplicated PP course. Breast feeding well. No depression. Immunizations UTD. PAP due, completed today, see below. C ounseled about contraception, pt elects Mirena IUD, would like to have placed today, see below. Has a resolving hemorrhoid, no BRBPR, declines tx. WWE in 1 year. 2. B irth control I UD insertion procedure note: Pre Procedure: LMP prior to . N o unprotected intercourse since delivery. Urine HCG negative. PRE-OP DIAGNOSIS: desired long active reversible contraception. POST-OP DIAGNOSIS: Same PROCEDURE: IUD insertion [x ] Mirena [ ] Shanna [ ] Paragard Performing Provider: FARNAZ Vazquez Lot #: [id number] Expiration: JUL 2022 UNIVERSAL PROTOCOL/Timeout Procedure: The following were verified and correct: [X] Patient name and [X] Procedure [X] Procedure consent signed and witnessed [X] Correct equipment available [X] Specimen labels verified by patient [X] Time out completed by provider and evaluation assistant. Chaperoned and Assisted by:Flower PROCEDURE: A bimanual exam was done to determine the position of the uterus. A speculum was placed. Sterile technique was maintained throughout the procedure. A GC swab was obtained. The cervix was prepped with betadine. A single tooth tenaculum was [x_] used [_] not used. The uterus was sounded to 8 .5 cm. The IUD applicator was adjusted to the appropriate depth and the IUD was inserted into the uterus without complications and tolerated well by the patient. The strings were trimmed to 4 cm. The tenaculum sites were hemostatic after applying direct pressure. EBL: < 1ml Pain prior to placement 0/10 Pain after placement 0/10 Uncomplicated M slava I UD insertion. L eft clinic with no vasovagal sxs. E R for fever or severe abd pain. P ost IUD instructions discussed. N SAIDS as directed PRN comfort. I UD reminder card given to pt. 5 year removal. Ordered: Beta HCG Qualitative, Urine 3. C ancer cervix - screening done P AP with HPV reflex today. No hx of abnormal PAPs. F/U per ASCCP guidelines. Extracted from:Title: Summary Document Author: SYSTEM, SYSTEM Maira De Jesus Pretty Managed Acct Date: 04/07/20 Odessa Nagel : 1990 Age: 30 Years Odessa Nagel : [birth year] Summary (Date of Report: 04/07/20) G 2 P 1 (1,0,0,1) Gestation: -- LMP: 05/29/2019 (from pt. history) MIGUEL: 03/04/2020 MIGUEL/EGA Method: Last Menstrual Period EGA: 44 weeks 5 days Odessa Nagel : [birth year] Antepartum Note Date: 07/14/19 15:01 (6 weeks) By: HERIBERTO ASHLEY LPN No OHIpt contact # [phone] screen neg Odessa Nagel : [birth year] Problems (Active Problems Only) (SNOMED CT: 146366607, Onset: 05/29/19) Dandruff (SNOMED CT: 2666035994, Onset: --) Allergic rhinitis (SNOMED CT: 386332917, Onset: --) Odessa Nagel : [birth year] Risk Factors and Genetic Screening Risk Factors (Current ) Risk Factors: -- Risk Factors Comments: -- Ethnic Screening Baby's father: Self, Baby's father: Genetic Disorders Screening No genetic disorders have been recorded. Odessa Nagel : [birth year] Gestational Age (EGA) and MIGUEL * Note: EGA calculated as of 04/07/2020 MIGUEL: 03/04/2020 EGA*: 44 weeks 5 days Type: Authoritative Method Date: 05/29/2019 Method: Last Menstrual Period (05/29/2019) Confirmation: Confirmed Description: Normal Amount/Duration Comments: -- Entered by: HERIBERTO ASHLEY LPN on 07/14/2019 Other MIGUEL Calculations for this : No additional MIGUEL calculations have been recorded for this Odessa Nagel : [birth year] Measurements Pre- Weight: 74.8 kg 02/24/20 (38 weeks) Recent Weight Measured: 88.6 kg (+14) 02/24/20 (38 weeks) Height/Length Measured: 165 cm 02/24/20 (38 weeks) Body Mass Index Measured: 32.54 kg/m2 02/24/20 (38 weeks) Odessa Nagel : [birth year] Exam and Notes Date JOSE Diallo PTL S/S Cervix BP Weight Urine Baby cm Dil Eff(%) Sta mmHg lbs kg Gluc Prot FHR Activity Fet Pres 02/24/20 38w5d 39 -- -- -- -- 118/72 *195... -- -- Baby A = Present -- 02/18/20 37w6d 38 -- 2 70% -2 115/69 *194... -- -- Baby A = Present -- 02/10/20 36w5d 37 -- -- -- -- 126/78 *195... -- -- Baby A = Present -- 01/14/20 32w6d 33 -- -- -- -- 115/60 *185... -- -- Baby A = Present -- 12/17/19 28w5d 28 None -- -- -- 120/68 *178... -- -- Baby A = Present -- 11/05/19 22w6d 22 -- -- -- -- 114/72 *179... -- -- -- -- -- 11/01/19 22w2d -- -- -- -- -- 120/69 *179... -- -- -- -- -- 09/23/19 16w5d -- -- -- -- -- 132/76 *172... -- -- Baby A = Present -- 09/21/19 16w3d -- -- -- -- -- 125/81 *174... -- -- -- -- -- 08/10/19 10w3d -- -- -- -- -- 122/68 *169... -- -- -- -- -- 07/26/19 8w2d -- -- -- -- -- 122/67 *169... -- -- -- -- -- 07/14/19 6w4d -- -- -- -- -- 122/67 *169... -- -- -- -- -- 06/28/19 4w2d -- -- -- -- -- 119/79 *169... -- -- -- -- -- * Weight 02/24/2020 195.363(lbs) 88.6(kg) 02/18/2020 194.702(lbs) 88.3(kg) 02/10/2020 195.804(lbs) 88.8(kg) 01/14/2020 185.220(lbs) 84(kg) 12/17/2019 178.605(lbs) 81(kg) 11/05/2019 179.046(lbs) 81.2(kg) 11/01/2019 179.487(lbs) 81.4(kg) 09/23/2019 172.210(lbs) 78.1(kg) 09/21/2019 174.857(lbs) 79.3(kg) 08/10/2019 169.565(lbs) 76.9(kg) 07/26/2019 169.124(lbs) 76.7(kg) 07/14/2019 169.785(lbs) 77(kg) 06/28/2019 169.785(lbs) 77(kg) Odessa Nagel : [birth year] Physical Exams Physical Exam Respiratory SpO2: 99 % (02/24/20) Oxygen Flow Rate: 10 L/min (01/14/20) Odessa Nagel : [birth year] Blood Types and Anti-D Immune Globulin Blood Type and Screen Mother ABO/Rh: -- Mother Antibody Screen: -- Father of Baby ABO/Rh: -- Father of Baby Antibody Screen: -- Anti-D Immune Globulin Rho(D) Initial Status: -- Rho(D) 28 Week Status: -- Rho(D) Dates Given: -- Odessa Nagel : [birth year] Tests and Lab Results Results ending with 'TR' have been keyed in by the practice or interpreted manually. Result Date: Estimated weeks post onset will display next to actual result date. Test Result Date Ref Range Beta hCG, Urine Qual (A) Positive 07/02/19 (4 weeks) Negative UA Color Yellow 07/14/19 (6 weeks) Yellow UA Ketones Trace 07/14/19 (6 weeks) Negative UA Micro Ind? Not Indicated 07/14/19 (6 weeks) Not Indicated UA Leuk Esterase Negative 07/14/19 (6 weeks) Negative UA Bili Negative 07/14/19 (6 weeks) Negative UA Protein (N) Trace 07/14/19 (6 weeks) Negative UA Blood Negative 07/14/19 (6 weeks) Negative UA Glucose Negative 07/14/19 (6 weeks) Negative UA Spec [place] (A) >=1.030 07/14/19 (6 weeks) UA pH 6.5 07/14/19 (6 weeks) UA Urobilinogen 1.0 07/14/19 (6 weeks) 0.2 UA Appear Clear 07/14/19 (6 weeks) Clear UA Nitrite Negative 07/14/19 (6 weeks) Negative CFPS Testing Consent.KS Yes 07/14/19 (6 weeks) Cystic Fibrosis Scrn.KS (N) None of 39 Common Mutations, see below. 07/14/19 (6 weeks) CFPS Pt. Race-Father.KS Black 07/14/19 (6 weeks) CFPS Provider Contact.KS (N) [phone] 07/14/19 (6 weeks) CFPS Family Hx?.KS No 07/14/19 (6 weeks) CFPS Ind. for Test.KS Scrn 07/14/19 (6 weeks) CFPS Pt. Race-Mother Black 07/14/19 (6 weeks) CFPS Pt. Symptoms.KS (N) none 07/14/19 (6 weeks) Hemoglobin (L) 12.4 g/dL 07/14/19 (6 weeks) (14.0 - 18.0) MCHC 34.8 g/dL 07/14/19 (6 weeks) (32.0 - 36.0) MCH 29.6 pg 07/14/19 (6 weeks) (27.0 - 36.0) RDW 11.9 % 07/14/19 (6 weeks) (10.9 - 15.1) WBC 6.76 10^3/uL 07/14/19 (6 weeks) (4.60 - 11.00) MCV 85.0 fL 07/14/19 (6 weeks) (82.0 - 99.0) Hematocrit (L) 35.6 g/dL 07/14/19 (6 weeks) (36.0 - 46.0) MPV 9.3 fL 07/14/19 (6 weeks) (7.0 - 11.0) RBC 4.19 10^6/uL 07/14/19 (6 weeks) (3.80 - 5.20) Platelets (H) 404 10^3/uL 07/14/19 (6 weeks) (130 - 400) Neutrophil % Auto (L) 53.7 % 07/14/19 (6 weeks) (54.0 - 77.0) Monocyte % Auto 8.6 % 07/14/19 (6 weeks) (0.0 - 15.0) Neutro Absolute 3.63 10^3/uL 07/14/19 (6 weeks) (2.00 - 7.00) Eosinophil % Auto 1.2 % 07/14/19 (6 weeks) (0.0 - 4.0) Lymphocyte % Auto 35.7 % 07/14/19 (6 weeks) (15.0 - 41.0) [place] Absolute 0.58 10^3/uL 07/14/19 (6 weeks) (0.20 - 0.90) Baso Absolute 0.05 10^3/uL 07/14/19 (6 weeks) (0.00 - 0.20) Basophil % Auto 0.7 % 07/14/19 (6 weeks) (0.0 - 2.0) Eos Absolute 0.08 10^3/uL 07/14/19 (6 weeks) (0.00 - 0.70) Lymph Absolute 2.41 10^3/uL 07/14/19 (6 weeks) (1.00 - 4.50) Imm. Granulocyte Absolute (N) <0.04 07/14/19 (6 weeks) Imm. Granulocyte % 0.1 % 07/14/19 (6 weeks) (0.0 - 2.0) OP ABSC: Negative 07/14/19 (6 weeks) OP ABORh (U) B POS 07/14/19 (6 weeks) ABORh Retype (U) B POS 07/14/19 (6 weeks) Hgb Variant LC (N) 0.0 % 07/14/19 (6 weeks) 0.0 Hgb S LC (N) 0.0 % 07/14/19 (6 weeks) 0.0 Hgb A LC (N) 97.4 % 07/14/19 (6 weeks) 96.4-98.8 Hgb Solubility LC (N) Negative 07/14/19 (6 weeks) Negative Hgb C LC (N) 0.0 % 07/14/19 (6 weeks) 0.0 Hgb Interpretation LC (N) Comment 07/14/19 (6 weeks) Hgb A2 LC (N) 2.6 % 07/14/19 (6 weeks) 1.8-3.2 Hgb F LC (N) 0.0 % 07/14/19 (6 weeks) 0.0-2.0 Varicella Virus IgG.EPI (N) POSITIVE 07/14/19 (6 weeks) Rubella Ab Screen (A) Pos 07/14/19 (6 weeks) Neg Syphilis Screen Non-Reactive 07/14/19 (6 weeks) Non-Reactive HIV-1/O/2.EPI (N) NON-REACTIVE 07/14/19 (6 weeks) NON-REACTIVE Chlamydia Scrn Neg 07/14/19 (6 weeks) Neg GC Scrn Neg 07/14/19 (6 weeks) Neg Test Result Date Ref Range Ser Int-1 Submit Part 2 Sample Using LC (N) Date: 08/10/19 (10 weeks) Ser Int-1 Number of Fetuses LC (N) 1 08/10/19 (10 weeks) Ser Int-1 Race LC (N) Black 08/10/19 (10 weeks) Ser Int-1 Gest. Age Based on LC (N) MIGUEL 08/10/19 (10 weeks) Ser Int-1 Gestational Age LC (N) 10.4 weeks 08/10/19 (10 weeks) Ser Int-1 Maternal Age at MIGUEL LC (N) 28.6 years 08/10/19 (10 weeks) AZEB-A Value LC (N) 305.0 ng/mL 08/10/19 (10 weeks) Ser Int-1 Weight LC (N) 169 lb 08/10/19 (10 weeks) Ser Int-1 Test Results: LC (N) Comment 08/10/19 (10 weeks) Ser Int-1 Comments LC (N) Comment 08/10/19 (10 weeks) Ser Int-1 Results LC (N) Report 08/10/19 (10 weeks) Ser Int-1 Note LC (N) Comment 08/10/19 (10 weeks) Age of Egg Donor (##).LC (N) 29 08/10/19 (10 weeks) Donor Egg. N 08/10/19 (10 weeks) MIGUEL/EDC Date ().LC (N) [id number] 08/10/19 (10 weeks) FHX NTD. N 08/10/19 (10 weeks) GA Calculation Method. LMP 08/10/19 (10 weeks) GA Date of Calc (YYYYMMD).LC (N) [id number] 08/10/19 (10 weeks) Gest Age (Decimal, ##.#).LC (N) 10.3 08/10/19 (10 weeks) Insulin Dependent. N 08/10/19 (10 weeks) Nbr of Fetuses (#).LC (N) 1 08/10/19 (10 weeks) Other Indications.LC N 08/10/19 (10 weeks) Previously Elevated AFP. N 08/10/19 (10 weeks) Prior Down Syndrome/ONDT Screen.LC N 08/10/19 (10 weeks) Prior First Trimester Testing.LC N 08/10/19 (10 weeks) Prior With Down Syndrome.LC N 08/10/19 (10 weeks) AFP Value LC (N) 42.8 ng/mL 09/23/19 (16 weeks) Prior With Down Syndrome.LC N 09/23/19 (16 weeks) Ser Int-2 Gest. Age Based on LC (N) MIGUEL 09/23/19 (16 weeks) TERENCE Value LC (N) 142.0 pg/mL 09/23/19 (16 weeks) Ser Int-2 Test Results: LC (N) *Screen Negative* 09/23/19 (16 weeks) Ser Int-2 Comments: LC (N) Comment 09/23/19 (16 weeks) Ser Int-2 OSB Interpretation LC (N) Comment 09/23/19 (16 weeks) Ser Int-2 AZEB-A MoM LC (N) 0.77 09/23/19 (16 weeks) Ser Int-2 Number of Fetuses LC (N) 1 09/23/19 (16 weeks) Ser Int-2 Collected On (N) Date: 09/23/19 (16 weeks) Ser Int-2 FIRST TRIMESTER SAMPLE LC (N) Comment 09/23/19 (16 weeks) Ser Int-2 Trisomy 18 Interpretation LC (N) Comment 09/23/19 (16 weeks) uE3 Value LC (N) 0.83 ng/mL 09/23/19 (16 weeks) Ser Int-2 Maternal Age at MIGUEL LC (N) 28.4 years 09/23/19 (16 weeks) Ser Int-2 SECOND TRIMESTER SAMPLE LC (N) Comment 09/23/19 (16 weeks) Ser Int-2 Race LC (N) Black 09/23/19 (16 weeks) Ser Int-2 TERENCE MoM LC (N) 0.94 09/23/19 (16 weeks) Ser Int-2 Weight (N) 169 lb 09/23/19 (16 weeks) Ser Int-2 Insulin Dep Diabetes LC (N) No 09/23/19 (16 weeks) Ser Int-2 Down Syndrome LC (N) Age Risk: 09/23/19 (16 weeks) Ser Int-2 Results LC (N) Report 09/23/19 (16 weeks) AZEB-A Value LC (N) 305.0 ng/mL 09/23/19 (16 weeks) Ser Int-2 Down Syndrome Interp LC (N) Comment 09/23/19 (16 weeks) Ser Int-2 Trisomy 18 (N) Screening Risk: 09/23/19 (16 weeks) hCG Value LC (N) 28.8 IU/mL 09/23/19 (16 weeks) Ser Int-2 Weight LC (N) 172 lb 09/23/19 (16 weeks) Ser Int-2 Note: LC (N) Comment 09/23/19 (16 weeks) Ser Int-2 hCG MoM LC (N) 1.01 09/23/19 (16 weeks) Ser Int-2 uE3 MoM LC (N) 0.85 09/23/19 (16 weeks) Ser Int-2 Gestational Age (N) 16.7 weeks 09/23/19 (16 weeks) Ser Int-2 Collected On LC (N) Date: 09/23/19 (16 weeks) Ser Int-2 AFP MoM LC (N) 1.24 09/23/19 (16 weeks) Ser Int-2 Trisomy 18 LC (N) Age Risk: 09/23/19 (16 weeks) Ser Int-2 Down Syndrome (N) Screening Risk: 09/23/19 (16 weeks) Ser Int-2 Open Spina Bifida LC (N) Screening Risk: 09/23/19 (16 weeks) Age of Egg Donor (##).LC (N) 29 09/23/19 (16 weeks) Donor Egg. N 09/23/19 (16 weeks) FHX NTD. N 09/23/19 (16 weeks) GA Calculation Method. MIGUEL/EDC 09/23/19 (16 weeks) GA Date of Calc (YYYYMMDD). (N) [id number] 09/23/19 (16 weeks) Gest Age (Decimal, ##.#).LC (N) 16.5 09/23/19 (16 weeks) Insulin Dependent. N 09/23/19 (16 weeks) Nbr of Fetuses (#). (N) 1 09/23/19 (16 weeks) Other Indications. N 09/23/19 (16 weeks) Previously Elevated AFP. N 09/23/19 (16 weeks) Prior Down Syndrome/ONDT Screen. N 09/23/19 (16 weeks) Prior First Trimester Testing. N 09/23/19 (16 weeks) Ser Int-2 Gestational Age LC (N) 10.4 weeks 09/23/19 (16 weeks) UA Leuk Esterase Negative 11/12/19 (23 weeks) Negative UA Nitrite Negative 11/12/19 (23 weeks) Negative UA Color Yellow 11/12/19 (23 weeks) Yellow UA Protein Negative 11/12/19 (23 weeks) Negative UA Blood Negative 11/12/19 (23 weeks) Negative UA Glucose Negative 11/12/19 (23 weeks) Negative UA Urobilinogen 0.2 11/12/19 (23 weeks) 0.2 UA Spec [place] 1.025 11/12/19 (23 weeks) UA pH 6.5 11/12/19 (23 weeks) UA Micro Ind? Not Indicated 11/12/19 (23 weeks) Not Indicated UA Ketones Negative 11/12/19 (23 weeks) Negative UA Bili Negative 11/12/19 (23 weeks) Negative UA Appear Clear 11/12/19 (23 weeks) Clear MPV 9.3 fL 11/12/19 (23 weeks) (7.0 - 11.0) RBC (L) 3.68 10^6/uL 11/12/19 (23 weeks) (3.80 - 5.20) Hematocrit (L) 32.3 g/dL 11/12/19 (23 weeks) (36.0 - 46.0) MCHC 34.1 g/dL 11/12/19 (23 weeks) (32.0 - 36.0) Differential? Auto 11/12/19 (23 weeks) Hemoglobin (L) 11.0 g/dL 11/12/19 (23 weeks) (14.0 - 18.0) WBC 7.07 10^3/uL 11/12/19 (23 weeks) (4.60 - 11.00) MCH 29.9 pg 11/12/19 (23 weeks) (27.0 - 36.0) MCV 87.8 fL 11/12/19 (23 weeks) (82.0 - 99.0) RDW 12.7 % 11/12/19 (23 weeks) (10.9 - 15.1) Platelets 276 10^3/uL 11/12/19 (23 weeks) (130 - 400) Baso Absolute <0.04 10^3/uL 11/12/19 (23 weeks) (0.00 - 0.20) Lymphocyte % Auto 21.9 % 11/12/19 (23 weeks) (15.0 - 41.0) Neutro Absolute 4.94 10^3/uL 11/12/19 (23 weeks) (2.00 - 7.00) Monocyte % Auto 5.0 % 11/12/19 (23 weeks) (0.0 - 15.0) Lymph Absolute 1.55 10^3/uL 11/12/19 (23 weeks) (1.00 - 4.50) Eos Absolute 0.07 10^3/uL 11/12/19 (23 weeks) (0.00 - 0.70) Basophil % Auto 0.3 % 11/12/19 (23 weeks) (0.0 - 2.0) [place] Absolute 0.35 10^3/uL 11/12/19 (23 weeks) (0.20 - 0.90) Imm. Granulocyte Absolute (N) 0.14 11/12/19 (23 weeks) Imm. Granulocyte % 2.0 % 11/12/19 ( weeks) (0.0 - 2.0) Neutrophil % Auto 69.8 % 11/12/19 ( weeks) (54.0 - 77.0) Eosinophil % Auto 1.0 % 11/12/19 (23 weeks) (0.0 - 4.0) Gluc 1 Hr 154 mg/dL 11/12/19 (23 weeks) (65 - 184) HBsAg Screen.LC (N) Negative 11/12/19 (23 weeks) Negative Treponema pallidum Ab.EPI (N) NON-REACTIVE index 11/12/19 (23 weeks) NON-REACTIVE Test Result Date Ref Range Gluc Baseline 91 mg/dL 11/19/19 (24 weeks) (74 - 106) Gluc 2 Hr (H) 162 mg/dL 11/19/19 (24 weeks) (65 - 138) Gluc 3 Hr (H) 138 mg/dL 11/19/19 (24 weeks) (65 - 110) Gluc 1 Hr 148 mg/dL 11/19/19 (24 weeks) (65 - 184) Test Result Date Ref Range Albumin (L) 2.9 g/dL 02/18/20 (37 weeks) (3.4 - 5.0) Protein Total 7.1 g/dL 02/18/20 (37 weeks) (6.4 - 8.2) AGAP (L) 9 mmol/L 02/18/20 (37 weeks) (10 - 20) Creatinine Level 0.62 mg/dL 02/18/20 (37 weeks) (0.55 - 1.02) Glucose Lvl (L) 69.0 mg/dL 02/18/20 (37 weeks) (74.0 - 106.0) ALT 22 U/L 02/18/20 (37 weeks) (12 - 78) CO2 24 mmol/L 02/18/20 (37 weeks) (21 - 32) Bilirubin Total 0.6 mg/dL 02/18/20 (37 weeks) (0.2 - 1.0) Chloride 103 mmol/L 02/18/20 (37 weeks) (98 - 107) Bilirubin Direct 0.12 mg/dL 02/18/20 (37 weeks) (0.00 - 0.20) Potassium Lvl 3.7 mmol/L 02/18/20 (37 weeks) (3.5 - 5.1) AST 18 U/L 02/18/20 (37 weeks) (15 - 37) Alk Phos (H) 222 U/L 02/18/20 (37 weeks) (30 - 120) Sodium 136 mmol/L 02/18/20 (37 weeks) (136 - 145) BUN/Creat Ratio (N) 10 02/18/20 (37 weeks) Calcium 8.9 mg/dL 02/18/20 (37 weeks) (8.5 - 10.1) BUN (L) 6.0 mg/dL 02/18/20 (37 weeks) (7.0 - 18.0) eGFR AA 143 mL/min 02/18/20 (37 weeks) >=60 eGFR Non-AA 124 mL/min 02/18/20 (37 weeks) >=60 Bile Acids Total.LC (N) 3.0 umol/L 02/18/20 (37 weeks) Cholate.LC (N) 0.70 umol/L 02/18/20 (37 weeks) Chenodeoxycholate.LC (N) 0.80 umol/L 02/18/20 (37 weeks) Deoxycholate.LC (N) 1.5 umol/L 02/18/20 (37 weeks) Ursodeoxycholate.LC (N) <0.10 umol/L 02/18/20 (37 weeks) Odessa Nagel : 89 Allergies (Active and Proposed Allergies Only) No Known Allergies (Severity: Unknown severity, Onset: Unknown) Odessa Nagel : 89 Medications Prescriptions and Home Medications Currently Active or Taking Claritin 10 mg oral tablet SI tab(s), Oral, Daily, PRN: allergy symptoms, 90 tab(s), 3 Refill(s) Ordered: 11/01/19 Provider: AURY NUNN Classic oral tablet SI tab(s), Oral, Daily, 30 tab(s), 0 Refill(s) Ordered: 03/03/20 Provider: MEMO AGUERO PA Colace 100 mg oral capsule SI cap(s), Oral, BID, PRN: constipation, 20 cap(s), 0 Refill(s) Ordered: 03/03/20 Provider: MEMO AGUERO PA loratadine 10 mg tablet SI mg, Oral, Daily, PRN, 90 EA, 3 Refill(s) Ordered: 11/01/19 Provider: AURY NUNN pyridoxine 50 mg tablet SIG: See Rx Instructions, 60 EA, 0 Refill(s) Ordered: 07/26/19 Provider: MEMO AGUERO PA triamcinolone 0.025% cream[15g] SI appl(s), Topical, BID, 15 g, 0 Refill(s) Ordered: 11/01/19 Provider: AURY NUNN Inactive or Suspended (Prescriptions and documented medications since 02/26/19) acetaminophen 325 mg oral tablet SI tab(s), Oral, every 4 hr, PRN: pain or fever, 100 tab(s), 0 Refill(s) Status: Completed Ordered: 03/03/20 Provider: MEMO AGUERO PA acetaminophen 325 mg tablet SI mg, Oral, every 4 hr, PRN, 100 EA, 0 Refill(s) Status: Completed Ordered: 03/03/20 Provider: MEMO AGUERO PA azithromycin 250 mg oral tablet SIG: see instructions, take 2 tablets today then 1 tablet daily for 4 days, 6 tab(s), 0 Refill(s) Status: Completed Ordered: 09/21/19 Provider: MILY PRINCE azithromycin 250 mg tablet (6EA) SIG: See Rx Instructions, 6 EA, 0 Refill(s) Status: Completed Ordered: 09/21/19 Provider: MILY PRINCE Bactroban 2% topical ointment SI appl(s), Topical, TID, 22 g, 0 Refill(s) Status: Completed Ordered: 11/09/19 Provider: AURY NUNN Diflucan 150 mg oral tablet SI tab(s), Oral, As Directed, Once, 1 tab(s), 0 Refill(s) Status: Discontinued Ordered: 09/20/19 Provider: MINDY ETIENNE docusate sodium 100 mg capsule SI mg, Oral, BID, PRN, 20 EA, 0 Refill(s) Status: Completed Ordered: 03/03/20 Provider: MEMO AGUERO PA erythromycin 0.5% Eye-Oint [3.5g] SI appl(s), Eye-Both, QID, 3.5 g, 0 Refill(s) Status: Completed Ordered: 09/21/19 Provider: MILY PRINCE erythromycin 0.5% ophthalmic ointment SI appl(s), Eye-Both, QID, 3.5 g, 0 Refill(s) Status: Completed Ordered: 09/21/19 Provider: MILY PRINCE fluconazole 150 mg tablet SI mg, Oral, As Directed, 1 EA, 0 Refill(s) Status: Discontinued Ordered: 09/20/19 Provider: MINDY ETIENNE ibuprofen 800 mg oral tablet SI tab(s), Oral, every 8 hr, 30 tab(s), 0 Refill(s) Status: Completed Ordered: 03/03/20 Provider: MEMO AGUERO PA ibuprofen 800 mg tablet SI mg, Oral, every 8 hr, 30 EA, 0 Refill(s) Status: Completed Ordered: 03/03/20 Provider: MEMO AGUERO PA mupirocin topical 2% Oin [22g] SI appl(s), Topical, TID, 22 g, 0 Refill(s) Status: Completed Ordered: 11/09/19 Provider: AURY NUNN PNDian oral tablet (Historically recorded) SI tab(s), Oral, Daily, 100 tab(s), 3 Refill(s) Status: Discontinued Ordered: 07/14/19 Provider: -- PNV oral tablet SI tab(s), Oral, Daily, 90 tab(s), 0 Refill(s) Status: Discontinued Ordered: 09/23/19 Provider: CHANDLER YOON multivitamins w/Folic Acid 0.8 mg tablet SI.8 mg, Oral, Daily, 100 EA, 0 Refill(s) Status: Completed Ordered: 03/03/20 Provider: MEMO AGUERO PA Prenavite with 0.8 mg Folic Acid tablet SI.8 mg, Oral, Daily, 100 EA, 0 Refill(s) Status: Completed Ordered: 09/23/19 Provider: CHANDLER YOON triamcinolone 0.025% topical cream SI appl(s), Topical, BID, for 14 days, apply a thin film to affected area, 15 g, 0 Refill(s) Status: Completed Ordered: 11/01/19 Provider: AURY NUNN Vitamin B6 50 mg oral tablet SIG: See Instructions, 1/2 tab PO TID for Nausea, 60 tab(s), 0 Refill(s) Status: Completed Ordered: 07/26/19 Provider: MEMO AGUERO PA Medication Administrations In-Office/Hospital (All in-office/hospital administrated medications ordered since 02/26/19) Afluria, influenza vaccine IIV4 [3 yr+] (influenza vaccine IIV4 (Afluria) [3 yr+] 0.5 mL syringe) 0.5 mL, IntraMuscular, Vaccine Status: Completed Ordered: 08/10/19 Provider: GENEVIEVE ALDRIDGE Boostrix (Tdap) (tetanus/diphtheria/pertussis (Boostrix Tdap) 0.5 mL injection) 0.5 mL, IntraMuscular, Once Status: Completed Ordered: 12/17/19 Provider: GENEVIEVE ALDRIDGE Odessa Nagel : 89 Immunizations influenza virus vaccine, inactivated 08/10/19 (10 weeks) tetanus, diphtheria, acellular pertussis 12/17/19 (28 weeks) Odessa Nagel : 89 Menstrual History Last Recorded Menstrual Period: 05/29/2019 Last Menstrual Period Description: -- Menarche Onset: 14 years Menarche Frequency: -- Menarche Length: -- Date of Menses Prior to LMP: -- On Hormonal Contracept within 2 months of LMP: -- Date of Home Test: -- Comments: -- Odessa Nagel : 89 History (1,0,0,1) # 1 Baby 1 Outcome Date: 06/01/2016 Outcome: Live Outcome or Result: Vaginal Gender: Female Gest Age: 39 weeks Wt: 3515 g Hospital: [facility] Labor: 10 hr Child's Name: -- Baby's Father: -- Anesthesia Type: Epidural Labor: No Odessa Nagel : 89 Medical History Past Medical History Nausea present (SNOMED CT: ) Onset Age: -- Resolved: -- Family History 33 = Father (OHI) (Name not documented, Alive) Hypertension 32 = Mother (OHI) (Name not documented, Alive) Hypertension 04 = Grandfather or Grandmother (OHI) (Name not documented, Alive) 34 = Other Adult (OHI) (Name not documented, Alive) Diabetes Paternal Grandmother - FH (Name not documented, Alive) Cancer Procedure or Surgical History Tonsillectomy Age: 24 Years Date: 2012 Office or other outpatient visit for the evaluation and management of an established patient, that may not require the presence of a physician or other qualified health hospice care transitions coordinator. Usually, the presenting problem(s) are minimal. Typically, 5 minute Age: -- Date: -- Office or other outpatient visit for the evaluation and management of an established patient, which requires at least 2 of these 3 aggarwal components: A detailed history; A detailed examination; Medical decision making of moderate complexity. Counseling and/o Age: -- Date: -- Office or other outpatient visit for the evaluation and management of an established patient, which requires at least 2 of these 3 aggarwal components: An expanded problem focused history; An expanded problem focused examination; Medical decision making of low Age: -- Date: -- Office or other outpatient visit for the evaluation and management of an established patient, which requires at least 2 of these 3 aggarwal components: An expanded problem focused history; An expanded problem focused examination; Medical decision making of low Age: -- Date: -- Office or other outpatient visit for the evaluation and management of an established patient, which requires at least 2 of these 3 aggarwal components: An expanded problem focused history; An expanded problem focused examination; Medical decision making of low Age: -- Date: -- Office or other outpatient visit for the evaluation and management of an established patient, which requires at least 2 of these 3 aggarwal components: An expanded problem focused history; An expanded problem focused examination; Medical decision making of low Age: -- Date: -- Office or other outpatient visit for the evaluation and management of an established patient, which requires at least 2 of these 3 aggarwal components: An expanded problem focused history; An expanded problem focused examination; Medical decision making of low Age: -- Date: -- Subsequent care visit () [Excludes: patients who are seen for a condition unrelated to or care (eg, an upper respiratory infection; patients seen for consultation only, not for continuing care)] Age: -- Date: -- Subsequent care visit () [Excludes: patients who are seen for a condition unrelated to or care (eg, an upper respiratory infection; patients seen for consultation only, not for continuing care)] Age: -- Date: -- Subsequent care visit () [Excludes: patients who are seen for a condition unrelated to or care (eg, an upper respiratory infection; patients seen for consultation only, not for continuing care)] Age: -- Date: -- Ultrasound, uterus, real time with image documentation, transvaginal Age: -- Date: -- Ultrasound, uterus, real time with image documentation, transvaginal Age: -- Date: -- Weight recorded (PAG) Age: -- Date: -- Weight recorded (PAG) Age: -- Date: -- Odessa Nagel : 89 Social and Psychosocial History Social History Alcohol Denies use Tobacco Smoking tobacco use: Never (less than 100 in lifetime). Domestic Violence Screen Have You Ever Been Emotionally Or Physically Abused by Your Partner: No Have You Been Physically Hurt by Someone Within the Past Year: No Within the Last Year, Has Anyone Forced You to Have Sexual Activity: No Have You Ever Been Emotionally Or Physically Abused by Your Partner: No Have You Been Physically Hurt by Someone Within the Past Year: No Within the Last Year, Has Anyone Forced You to Have Sexual Activity: No Have You Ever Been Emotionally Or Physically Abused by Your Partner: No Within the Last Year, Has Anyone Forced You to Have Sexual Activity: No Odessa Nagel : 89 Infection History Chickenpox Odessa Nagel : 89 Anesthesia and Transfusions Prior Anesthesia or Transfusion Received: Prior general anesthesia, No prior transfusion Prior Anesthesia Reaction(s): None Prior Transfusion Reaction(s): -- Blood Transfusion Acceptable to Patient: Yes Odessa Nagel : 89 Plan and Patient Requests Education: -- Written Plan: -- Written Plan Location: -- Oral Intake OB: -- Support Person/Gis Programmer Relationship to Pt: -- Labor Preferences: -- Non-Medicinal Pain Relief: -- Anesthesia/Pain Medication During Labor: -- Delivery Plan: -- Infant Feeding: -- Circumcision: -- Baby For Adoption: -- Patient Requests: -- Director Market Intelligence Selected: -- Surrogate : -- Support Person's Name: -- Odessa Nagel : 89 Education 1st Trimester Alcohol Use -- Childbirth Classes -- Domestic Violence -- Drug Use -- Environmental Hazards -- Exercise -- Expected Course of Care -- HIV Testing -- Hospital Facilities -- Influenza Vaccine -- Nutrition Counseling -- Risk Factors Identified by History -- Routine Tests -- Safety -- Seat Belts -- Sexual Activity -- Smoking/Tobacco Use -- Social Service -- Special Diet Counseling -- Toxoplasmosis Precautions -- Travel -- Ultrasound -- Use of Any Medications -- Vaginal Discharge -- Counseling -- Weight Gain -- When to Call Health Care Provider -- Work Hazards -- 2nd Trimester Abnormal Lab Values -- Childbirth Classes -- Choosing a [place] Care Provider -- Domestic Violence -- Influenza Vaccine -- Family Planning -- Tubal Sterilization -- Premature Labor Signs and Symptoms -- Safety -- Smoking/Tobacco Use -- Social Service -- Vaginal Discharge -- 3rd Trimester Analgesia Plans -- Anesthesia Plans -- Plan -- Breast or Bottle Feeding -- Car Seat Safety -- Childbirth Classes -- Circumcision -- Disability Forms -- Domestic Violence -- Family Medical Leave Forms -- Movement Monitoring -- Incision/Episiotomy Care -- Influenza Vaccine -- Labor Signs -- Education -- Depression -- Postterm Counseling -- Safety -- Signs, Symptoms of PIH -- Smoking/Tobacco Use -- Social Service -- Vaginal Discharge -- Counseling -- Educational Materials/Leaflets Provided No educational materials have been recorded as provided L&D Patient Education Activity Expectations -- Activity Restrictions -- Analgesia Plans -- Anesthesia Plans -- Plan -- Contractions -- Diagnostic Results -- Domestic Violence -- Drug to Drug Interactions -- Drug to Food Interactions -- Equipment/Devices -- Monitoring -- Monitoring Assessment -- Fever During -- Security -- Med Generic/Brand Name,Purpose,Action -- Med Preadministration Procedures -- Medication Dosage, Route, Scheduling -- Medication Instructions -- Medication Precautions -- Medication Side Effects -- Nutrition Counseling -- Pain Management -- Plan of Care -- Postoperative Instructions -- Premature Labor Signs and Symptoms -- Preoperative Instructions -- Reportable Symptoms -- Rupture of Membranes -- Safety -- Safety, Fall -- Seat Belts -- Sexual Activity Guideline/Restriction -- Smoking Cessation -- Surgery -- Treatments/Procedures/Tests -- Tubal Sterilization -- Ultrasound -- Unit Procedures -- Vaccinations -- Vaginal Bleeding -- Weight Gain -- Patient Education Activity Expectations -- Bladder/Bowel Function -- Breast Care -- Contact Health Care Provider -- Cramps -- Diagnostic Results -- Equipment/Devices -- Incision/Episiotomy Care -- Lochia Changes -- Med Generic/Brand Name,Purpose,Action -- Medication Dosage, Route, Scheduling -- Medication Precautions -- Nutrition Counseling -- Pain Management -- Perineal Care -- Plan of Care -- Postoperative Instructions -- Depression -- Preoperative Instructions -- Preparing Formula -- Room Orientation -- Safety -- Safety, Fall -- Sibling/Family Adjustment -- Sitz Bath -- Surgery -- Treatments/Procedures/Tests -- Unit Procedures -- Vaginal Discharge -- Odessa Nagel : 89 Registration and Information Race: Black or Ethnicity: Not or Marital Status: Language(s): B[place] Jehovah'S Witness Preference(s): -- Occupation/Education: [employer] (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) Address, Phone, and Health Plans Home Address: [address] [place], [place] [address], [place] [id number] (Home), --, -- Health Plans: 1 - 311 [employer] - AD Fam Mbrs Member/Group: [id number] Deductible: $ -- Type: [place] Address: [address] [place] [address] Phone: [phone] 2 - 602 [employer] Care and Mail Order and Retail Pharm Member/Group: [id number] Deductible: $ -- Type: [place]ata Address: [address] [place] [address] Phone: [phone] 3 - 000: M - No health care Cvrg plan (transfer records only) Member/Group: [id number] Deductible: $ -- Type: Self Pay Address: [address] [place] [address] Phone: [phone] 4 - 000: P - No health care Cvrg plan (transfer records only) Member/Group: [id number] Deductible: $ -- Type: Self Pay Address: [address] [place] [address] Phone: [phone] General Information OB Provider(s) Information: Not explicitly recorded. May be noted in encounter section below. See below for detailed information for all visits and information. Delivery Center/Hospital Information: -- [place] Provider Information: -- Referring Provider Information: HAIR, KAYLEE REBOLLAR Primary Provider Information: AURY NUNN /Partner Information: -- -- Support Person Information: -- Planned/Unplanned : -- Date Consent Signed for Tubal Ligation: -- Date Record Sent to Hospital: -- Odessa Nagel : 89 Visits and Encounters (Known encounters since 05/29/2019. May include lab encounters.) Date Location Provider Type Medical Service 04/10/2020 [id number] [facility] -- 03/01/2020 [id number]ne[facility] 02/29/2020 [id number] ARNDT, [facility] Obstetrics/Gynecology 02/28/2020 [id number] [facility]Gynecology 02/24/2020 [id number] [facility]Gynecology 02/18/2020 [id number] MEMO AGUERO PA [facility] Obstetrics/Gynecology 02/10/2020 [id number] MINDY ETIENNE [facility] Obstetrics/Gynecology 01/14/2020 [id number] MEMO AGUERO PA [facility] Obstetrics/Gynecology 12/17/2019 [id number] ALDRIDGE [facility] Injections-Immunizations 12/17/2019 [id number] EVELIN ACOSTA [facility] Obstetrics/Gynecology 11/19/2019 [id number] [facility] Outpatient Laboratory 11/16/2019 [id number] [facility] Outpatient Laboratory 11/15/2019 [id number] CHANDLER YOON Outpatient Radiology/Imaging Services 11/12/2019 [id number] [facility] 11/09/2019 [id number] DIXIE NUNNSANancie [facility] [place] [facility] 11/08/2019 [id number] -- Between Visit -- 11/05/2019 [id number] MEMO AGUERO PA [facility] Obstetrics/Gynecology 11/01/2019 [id number] EDOUARD AURY [facility] [place] [facility]/Family Medicine 10/29/2019 [id number] -- Between Visit -- 10/29/2019 [id number] -- Between Visit -- 10/18/2019 [id number] [facility]/Imaging Services 09/29/2019 [id number] -- Between Visit -- 09/23/2019 [id number] CHANDLER YOON [facility] Obstetrics/Gynecology 09/21/2019 TIMUR PRINCE [facility] Urgent Care 09/20/2019 [id number] -- Between Visit -- 08/10/2019 [id number] [facility] 08/10/2019 [id number] MINDY ETIENNE [facility] Obstetrics/Gynecology 07/26/2019 [id number] [facility]Gynecology 07/20/2019 [id number] -- Referral Tracking Defer to Network 07/14/2019 [id number] HERIBERTO ASHLEY LPN Clinic Obstetrics/Gynecology 07/05/2019 [id number] -- Between Visit -- 07/02/2019 [id number] RODRIGUEZ Outpatient Laboratory 07/02/2019 [id number] -- Between Visit -- 06/28/2019 [id number] MURO [facility] Primary Care/Family Medicine Odessa Nagel : 89 Visit / Encounter Location Information The following information represents known location and contact information for locations visited during [facility] Address: [address] [place] [id number] Phone:[phone] [facility] Address: No addresses found on file for location Phone: No phone numbers found on file for location Odessa Nagel : 89 Visit Diagnosis (Note: All diagnoses documented since 05/29/2019) 02/24/20 - 38 weeks gestation of (ICD-10-CM: Z3A.38, Date: 02/24/20) 02/24/20 - Excessive weight gain in , unspecified trimester (ICD-10-CM: O26.00, Date: 02/24/20) 02/18/20 - 37 weeks gestation of (ICD-10-CM: Z3A.37, Date: 02/18/20) 02/10/20 - state, incidental (ICD-10-CM: Z33.1, Date: ) 02/10/20 - state, incidental (ICD-10-CM: Z33.1, Date: 02/10/20) 02/10/20 - 36 weeks gestation of (ICD-10-CM: Z3A.36, Date: 02/10/20) 01/14/20 - 32 weeks gestation of (ICD-10-CM: Z3A.32, Date: ) 01/14/20 - 32 weeks gestation of (ICD-10-CM: Z3A.32, Date: 01/14/20) 12/17/19 - Encounter for immunization (ICD-10-CM: Z23, Date: 12/17/19) 12/17/19 - state, incidental (ICD-10-CM: Z33.1, Date: ) 12/17/19 - state, incidental (ICD-10-CM: Z33.1, Date: 12/17/19) 11/12/19 - state, incidental (ICD-10-CM: Z33.1, Date: 11/12/19) 11/09/19 - Cellulitis, unspecified (ICD-10-CM: L03.90, Date: ) 11/09/19 - Cellulitis, unspecified (ICD-10-CM: L03.90, Date: 11/09/19) 11/05/19 - 22 weeks gestation of (ICD-10-CM: Z3A.22, Date: ) 11/05/19 - 22 weeks gestation of (ICD-10-CM: Z3A.22, Date: 11/05/19) 11/01/19 - Seborrhea capitis (ICD-10-CM: L21.0, Date: ) 11/01/19 - Rash and other nonspecific skin eruption (ICD-10-CM: R21, Date: ) 11/01/19 - Allergic rhinitis, unspecified (ICD-10-CM: J30.9, Date: ) 11/01/19 - Allergic rhinitis, unspecified (ICD-10-CM: J30.9, Date: 11/01/19) 11/01/19 - Seborrhea capitis (ICD-10-CM: L21.0, Date: 11/01/19) 11/01/19 - Rash and other nonspecific skin eruption (ICD-10-CM: R21, Date: 11/01/19) 09/23/19 - Encounter for supervision of other normal , second trimester (ICD-10-CM: Z34.82, Date: ) 09/23/19 - 16 weeks gestation of (ICD-10-CM: Z3A.16, Date: ) 09/23/19 - Encounter for supervision of other normal , second trimester (ICD-10-CM: Z34.82, Date: 09/23/19) 09/23/19 - 16 weeks gestation of (ICD-10-CM: Z3A.16, Date: 09/23/19) 09/21/19 - Unspecified blepharitis left upper eyelid (ICD-10-CM: H01.004, Date: ) 09/21/19 - Unspecified blepharitis left upper eyelid (ICD-10-CM: H01.004, Date: 09/21/19) 09/20/19 - Candidiasis of vulva and vagina (ICD-10-CM: B37.3, Date: 09/20/19) 08/10/19 - Underimmunization status (ICD-10-CM: Z28.3, Date: 08/10/19) 08/10/19 - state, incidental (ICD-10-CM: Z33.1, Date: 08/10/19) 08/10/19 - Nausea (ICD-10-CM: R11.0, Date: 08/10/19) 07/26/19 - 8 weeks gestation of (ICD-10-CM: Z3A.08, Date: ) 07/26/19 - 8 weeks gestation of (ICD-10-CM: Z3A.08, Date: 07/26/19) 07/20/19 - Encounter for full-term uncomplicated delivery (ICD-10-CM: O80, Date: ) 07/20/19 - state, incidental (ICD-10-CM: Z33.1, Date: 07/20/19) 07/14/19 - state, incidental (ICD-10-CM: Z33.1, Date: ) 07/14/19 - state, incidental (ICD-10-CM: Z33.1, Date: 07/14/19) Odessa Nagel : 89 Delivery Summary Baby A Monitoring FHR Monitoring Method: Hand held doppler Note: Items documented with '--' had no clinical data which qualified at time of report creation END OF REPORT Extracted from:Title: OB Visit Note Author: ARNDT, ANTEA SMOOTH Date: 02/24/20 1. E xcessive weight gain in cardiac activity within acceptable limits Fundal height is appropriate VS within normal limits Weight gain is excessive Labs are up to date and within acceptable limits: GBS negative 10 FEBRUARY 2020 Varicella and Rubella Immune x2. s/p Flu shot a nd TdaP. Will discuss Gardasil series Aneuploidy screen and CF Low Risk PAP follow-up Structural Survey without anomaly/soft marker or previa Med rec completed with no refills requested PNV with DHA Labor precautions known to patient PIH precautions known to patient movement awareness known to patient Contraception: Mirena IUD planned Cephalic presentation confirmed Follow-up for IOL at 39 weeks Ordered: 29423 - Clinic New Level 1 Weight Recorded 2000F 2. G estation period, 38 weeks Addendum by KAYLEE ARNDT on February 24, 2020 16:12:41 PDT see above Extracted from:Title: 37 weeks OB Visit Note Author: MEMO AGUERO PA Date: 02/18/20 Ordered: Bile Acids,Fractionated LCMS [id number] Comprehensive Metabolic Panel 1. Gestation period, 37 weeks 2 7 Years y o : 2 Para: 1 Para Premature: 0 Para Full Term: 1 Para Abortions: 0 Living Children History: 1 Ectopic Pregnancies History: 0 Spontaneous Abortions Hx: 0 Induced Abortions History: 0 Multiple Births History: 0 @ 37w6d b y L MP with uncomplicated -Normal FHTs and fundal height today - NOB labs WNL, no f/u indicated - CF n egative, low risk - SIS negative, l ow risk - Rh positive, rhogam not indicated - EPDS is normal, no follow-up required - 20 wk survey u/s WNL, but limited eval of outflow tracts, f/u US - normal outflow tracts -Discussed bleeding/cramping, labor, PIH p recautions -FKC known to pt -HBA i nfo received -varicella and rubella immune -flu vaccine a nd Tdap received -3rd tri labs WNL except for failed 1 hr gtt, 3hr gtt w ith one abnormal one borderline, not GDM but encouraged healthy eating/exercise habits -Plans to BF, has pump -Mirena IUD as pp contraception -SVE /-2 IOL scheduled -F/u i n 1 week a nd PRN 2. Itching of feet w/o rash CMP and bile acids today ICP s/sx discussed and to present to [facility] if occur - strict precautions f/u next week with OBGYN 3. N ormal in multigravida Extracted from:Title: OB Visit Note Author: MINDY ETIENNE Date: 02/10/20 1. P regnant -Normal FHTs and fundal height today -Confirmed vertex on limited OB ultrasound today -TDaP and Flu vaccines - received -Discussed labor and bleeding precautions -Discussed kick counts -Discussed after delivery -Discussed contraception after delivery -Completed HBA class in preparation for delivery -Follow-up at L&D for any issues after hours -F/u at 38 weeks - Considering IOL 39-41wga -GBS pending Gestation period, 36 weeks Ordered: Group B Strep Culture MA/Nurse Collect Extracted from:Title: 32 weeks OB Visit Note Author: MEMO AGUERO PA Date: 01/14/20 1. Gestation period, 32 weeks 2 7 Years y o : 2 Para: 1 Para Premature: 0 Para Full Term: 1 Para Abortions: 0 Living Children History: 1 Ectopic Pregnancies History: 0 Spontaneous Abortions Hx: 0 Induced Abortions History: 0 Multiple Births History: 0 @ 36w6d b y L MP with uncomplicated -Normal FHTs and fundal height today - NOB labs WNL, no f/u indicated - CF n egative, low risk - SIS negative, l ow risk - Rh positive, rhogam not indicated - EPDS is normal, no follow-up required - 20 wk survey u/s WNL, but limited eval of outflow tracts, f/u US - normal outflow tracts -Discussed bleeding/cramping, PTL, PIH p recautions -FKC known to pt -HBA i nfo received -varicella and rubella immune -flu vaccine a nd Tdap received -3rd tri labs WNL except for failed 1 hr gtt, 3 hr gtt w ith one abnormal one borderline, not GDM but encouraged healthy eating/exercise habits -Plans to BF, has pump -Mirena IUD as pp contraception -F/u at 36wks and PRN 2. N ormal in multigravida 3. RLP, intermittent belly band given to pt Addendum by MEMO AGUERO PA on January 14, 2020 16:11:45 PDT No indicators of p ossible COVID 19 including: No recent travel, contacts or symptoms. Current Covid 19 recommendations reviewed. Extracted from:Title: IMMUNIZATION-TDaP Author: MIKAYLA GRIFFIN Date: 12/17/19 Adult Immunization Screening Questionnaire 1. Are you sick today? (NO) 2. Do you have allergies to medications, food, a vaccine component, or latex? (NO) 3. Have you ever had a serious reaction after receiving a vaccination? (NO) 4. Do you have a long-term health problem with heart disease, lung disease, asthma, kidney disease, metabolic disease (e.g. diabetes), anemia, or other blood disorder? Are you on long-term aspirin therapy? (NO) 5. Do you have cancer, leukemia, HIV/AIDS, or any other immune system problem? (NO) 6. In the past 3 months, have you taken medications that weaken your immune system, such as cortisone, prednisone, other steroids, or anticancer drugs, or have you had radiation treatments? (NO) 7. Have you had a seizure or a brain or other nervous system problem? (NO) 8. During or in the past year, have you received a transfusion of blood or blood products, or been given immune (gamma) globulin or an antiviral drug? (NO) 9. For women: Are you or is there a chance you could become during the next month? (YES) Have you received any vaccinations in the past 4 weeks? (NO) Patient in clinic for immunizations. Vaccine information reviewed with patient and VIS was given. Medications were reviewed and allergies verified. No ASE to vaccine noted prior to patient leaving clinic. Patient was given GIVEN BY: Maria A ZUÑIGA Vaccine Name: Cece dap (Boostrix) Dosage: 0 .5 m l LOT #:([id number] ? Expiration Date: ( 04/15/2021) Location: ( LEFT) d eltoid Route: IM VIS: 11/01/2014 Extracted from:Title: OB 28+6 Visit Note Author: EVELIN ACOSTA [facility] Date: 12/17/19 1. P regtriston 29 Years y o G ravida: 2 P alley: 1 P alley Premature: 0 P alley Full Term: 1 P alley Abortions: 0 L iving Children History: 1 E ctopic Pregnancies History: 0 S pontaneous Abortions Hx: 0 I nduced Abortions History: 0 M ultiple Births History: 0 @ 16w5d b y L MP with uncomplicated - screening: S IS2 n egative, low risk -20 wk survey u/s WNL, but limited eval of outflow tracts, f/u US with normal view of outflow tracts -Discussed bleeding/cramping, PTL, PIH p recautions -varicella and rubella immune -flu vaccine received, advised Tdap today -3rd tri labs - failed 1hr, 3hr with one abnormal one borderline, not GDM but encouraged healthy eating/exercise habits -HBA handout given today (no classes 2/2 Covid-19) and explained how to get breast pump -F/u at 32wk Ordered: [id number] - Clinic Est Level 3 Subsequent Care Visit [id number] Extracted from:Title: Toe pain Author: AURY NUNN Date: 11/09/19 1. C ellulitis L ocalized cellulitis without drainable abscess at base of left great toe, recommend hot water soaks for 15-20 minutes to encourage drainage, may apply topical antibacterial when draining, should f/u if noting spreading redness, increased toe pain despite attempts to drain. Orders: mupirocin topical, 1 appl(s), Topical, TID, # 22 g, 0 total refill(s), Acute, [facility]) [No refills remaining] [id number] - Clinic Est Level 3 Extracted from:Title: 22 weeks OB Visit Note Author: MEMO AGUERO PA Date: 11/05/19 Gestation period, 22 weeks 1 . G estation period, 16 weeks 29 Years y o G ravida: 2 P alley: 1 P alley Premature: 0 P alley Full Term: 1 P alley Abortions: 0 L iving Children History: 1 E ctopic Pregnancies History: 0 S pontaneous Abortions Hx: 0 I nduced Abortions History: 0 M ultiple Births History: 0 @ 16w5d b y L MP with uncomplicated -Reviewed screening: S IS2 n egative, low risk -20 wk survey u/s WNL, but limited eval of outflow tracts, ordered f/u US -Discussed bleeding/cramping, PTL, PIH p recautions -varicella and rubella immune -flu vaccine advised, Tdap when appropriate -SIS screening neg, low risk -3rd tri labs ordered between 24-28 weeks -F/u at 28wk 2. N ormal in multigravida discussed making arrangements for care for 5 y/o during delivery Ordered: *Glucose Level 1 Hour CBC w/ Diff RPR [id number] Urinalysis with Culture if Indicated Urine Culture Extracted from:Title: Skin and allergy concerns Author: AURY NUNN Date: 11/01/19 1. R matthew M ild dermatitis noted, will trial course of topical steroid, advised to short course of treatment limited to area of rash on back. F/u if not improving. P t in agreement w ith plan 2. A llergic rhinitis A dvised on use of anthistamine for sinus congestion. 3. D andruff D iscussed use of OTC Selsun blue if current regimen does not maintain effectiveness. Orders: loratadine, 1 tab(s), Oral, Daily, PRN allergy symptoms, # 90 tab(s), 3 total refill(s), Maintenance, [facility] (Rx[facility] [Not filled] triamcinolone topical, 1 appl(s), Topical, BID, apply a thin film to affected area, X 14 days, # 15 g, 0 total refill(s), Acute, [facility] dispense (Rx) [Not filled] [id number] - Clinic Est Level 3 Extracted from:Title: 16w5d OB Visit Note Author: CHANDLER YOON Date: 09/23/19 1. G estation period, 16 weeks 2 7 Years y o : 2 Para: 1 Para Premature: 0 Para Full Term: 1 Para Abortions: 0 Living Children History: 1 Ectopic Pregnancies History: 0 Spontaneous Abortions Hx: 0 Induced Abortions History: 0 Multiple Births History: 0 @ 16w5d by Arthur DYER withuncomplicated -Reviewed screening: SIS2 today -Ordered 20 wk survey u/s -Discussed bleeding/cramping precautions -F/u at 22wk - Discussed use of probiotics, limiting sugar intake, increasing complex fiber to improve gut microbiome that will decrease the risk of bacterial vaginosis overgrowth. F/u if new symptoms and consider further testing. Ordered: multivitamin, , 1 tab(s), Oral, Daily, # 90 tab(s), 0 total refill(s), Maintenance, [facility] (Rx) [Not filled] Serum Integrated 2 [id number] OB 2nd/3rd Trimester Survey 2. N ormal in multigravida Ordered: multivitamin, , 1 tab(s), Oral, Daily, # 90 tab(s), 0 total refill(s), Maintenance, [facility] pharmacy dispense (Rx) [Not filled] Orders: Subsequent Care Visit [id number] Chandler Yoon MD, RAYMUNDO, [facility], Family Medicine Physician / [employer] Extracted from:Title: Office Clinic Note- Blepharitis Author: MILY PRINCE Date: 09/21/19 1. B lepharitis of left eyelid P t has swelling of the left upper eyelid with slight excoriation likely from scratching, there is erythema present and no drainage the conjunctiva is normal. Will treat for blepharitis. recommend warm compresses and clean with baby shampoo and no contacts till done with treatment. Pt is 16 weeks and has follow up on for yeast infection that was treated with diflucan by PCM. Ordered: azithromycin, see instructions, take 2 tablets today then 1 tablet daily for 4 days, # 6 tab(s), 0 total refill(s), Acute, 09/27/2019, [facility] pharmacy dispense (Rx) [No refills remaining] erythromycin ophthalmic, 1 appl(s), Eye-Both, QID, # 3.5 g, 0 total refill(s), Acute, [facility] pharmacy dispense (Rx) [No refills remaining] Orders: Office Visit Level 3 Est [id number] Extracted from:Title: Ambulatory Patient Education Author: MILY PRINCE Date: 09/21/19 Patient Education Materials Follows: Blepharitis Blepharitis is redness, soreness, and swelling (inflammation) of one or both eyelids. It may be caused by an allergic reaction or a bacterial infection. Blepharitis may also be associated with reddened, scaly skin (seborrhea) of the scalp and eyebrows. While you sleep, eye discharge may cause your eyelashes to stick together. Your eyelids may itch, burn, swell, and may lose their lashes. These will grow back. Your eyes may become sensitive. Blepharitis may recur and need repeated treatment. If this is the case, you may require further evaluation by an regulatory law specialist (commercial driver's license driver). HOME CARE INSTRUCTIONS Keep your hands clean. Use a clean towel each time you dry your eyelids. Do not use this towel to clean other areas. Do not share a towel or makeup with anyone. Wash your eyelids with warm water or warm water mixed with a small amount of baby shampoo. Do this twice a day or as often as needed. Wash your face and eyebrows at least once a day. Use warm compresses 2 times a day for 10 minutes at a time, or as directed by your caregiver. Apply antibiotic ointment as directed by your caregiver. Avoid rubbing your eyes. Avoid wearing makeup until you get better. Follow up with your caregiver as directed. SEEK IMMEDIATE MEDICAL CARE IF: You have pain, redness, or swelling that gets worse or spreads to other parts of your face. Your vision changes, or you have pain when looking at lights or moving objects. You have a fever. Your symptoms continue for longer than 2 to 4 days or become worse. MAKE SURE YOU: Understand these instructions. Will watch your condition. Will get help right away if you are not doing well or get worse. Document Released: 08/22/2001 Document Revised: 11/16/2012 Document Reviewed: 10/02/2011 [facility] Patient Information 2 [employer]. This information is not intended to replace advice given to you by your health care provider. Make sure you discuss any questions you have with your health care provider. Extracted from:Title: Immunizations Author: HAROLDO SIMON Date: 08/10/19 influenza virus vaccine, inactivated: 0.5 mL (08/10/19 13:46:00) Immunization history reviewed for immunization status, allergy status verified during this encounter. Screening form reviewed, no contraindications to vaccine found, patient provided with homecare instructions, patient verbalized understanding of instructions. Time out performed, patient tolerated procedure well, patient advised to wait 15 minutes for observation, no adverse reactions were reported and patient left the clinic in stable condition. Extracted from:Title: OB Visit Note Author: MINDY ETIENNE Date: 08/10/19 1. N ausea present U nisom q day 2. P regnant - Labs normal - Discussed bleeding precautions in early and to f/u in the ED for any bleeding - Recommend f/u at 16weeks - Discussed counseling on: -the use of seat belts and air bags -recommended limiting fish consumption to <12 ouces/week; no uncooked meat; no unpasteurized dairy products; thoroughly washing fruits and vegetables -recommended limiting caffeine to 200 mg/day -appropriate weight gain during : * 28-40 lbs for underweight women (BMI <18.5) * 25-35 lbs for normal weight women (BMI 18.5-24.9) * 15-25 lbs for overweight women (BMI 25-29.9) *11-20 lbs for obese women (BMI >29.9) -No alcohol, tobacco, illicit drugs -Infection precautions - recommend influenza vaccine, avoid contact with rodents, be careful around animals; toxoplasmosis, CMV, listeria, and foodborne infections -Discussed and recommended to continue with exercise - moderate exercise 30 minutes/day at least 3-4 days per week; remember to hydrate well during exercise -Discussed sexual activity: OK in the absence of bleeding or complication -Discussed travel - increased risk of DVT with prolonged sitting; infectious diseases in foreign countries -Discussed medication use - Tylenol for pain, fever, and headache; avoid NSAIDs after 28 weeks. -Discussed baseline defects - 2% baseline -Discussed bleeding and miscarriage precautions -Discussed Screening: Maternal Serum Analyte Screening: We discussed that this test is optional. It is a screening test. The test is not diagnostic. The test is designed to screen for Down Syndrome, Trisomy 18 and open neural tube defects. I offered Integrated Screen (1st trimester serum AZEB-A, ultrasound for nuchal translucency, and 2nd serum HCG, AFP, inhibin-A, and unconjugated estriol) vs. Serum Intergrated screen (all the serum test without the nuchal translucency); the screening is designed to screen for Down syndrome (88-92%), neural tube defects (65-80%) - such as spina bifida and anencephaly, and trisomy 18 (90%). If the test shows an elevated risk, further testing would be offered (Comprehensive ultrasound and possible amniocentesis). Chromosome abnormalities cannot be diagnosed by maternal serum screening or ultrasound. Amniocentesis may be necessary to confirm the diagnosis. There are also false negative results meaning that the test cannot completely rule out Down syndrome, Trisomy 18 or an open neural tube defect. If elected, first trimester screen (serum screening +/- NT) is done between 10- 13.9 weeks; then second trimester serum screening is done between 15-21.9 weeks. If she missed the screening window for the first trimester, then QUAD screen can be ordered between 15-22.9 weeks. - Patient desires testing SIS #1 ordered -BF Contraception: ?? - F/u in 6 weeks or prn Ordered: Serum Integrated 1 [id number] Extracted from:Title: Dating US OB Visit Note Author: MEMO AGUERO PA Date: 07/26/19 8 weeks gestation of 29 y /o currently at 8+2 wga confirmed by US. EDC date 03/04/20 by LMP. ROS neg other than continuous N. Add vit b6 tid per orders. Recent UA neg. + FCA 1 69 bpm. CF screen negative. Aneuploidy screening to be offered at [facility] appt. F/U at [facility] as scheduled. SAB precautions. Orders: pyridoxine, See Instructions, 1/2 tab PO TID for Nausea, # 60 tab(s), 0 total refill(s), Acute, [facility] pharmacy dispense (Rx) [No refills remaining] Office Visit Level 3 Est 53261 Transvaginal Us,Obstetric 15259 04/28/2025 [facility] Assessment and Plan Extracted from:Title : Office Clinic Note Author: REBECA BAZAN Date: 04/28/20 1. T inea versicolor R x for topical steroid; has not responded to antifungal so uncertain diagnosis. Referring to dermatology for further evaluation. Ordered: triamcinolone topical, 1 appl(s), Topical, BID, X 14 days, # 80 g, 0 total refill(s), Acute, Route to [facility] [No refills remaining] [id number] Clinic Est Level 4 Medical Referral Request, = 04/28/2020, Routine, Dermatology, unknown pruritic rash, Evaluate and Treat, Future Order, Appoint to [facility], [id number], Tinea versicolor 2. S kin tag Risks and benefits of procedure discussed with patient, who w ished to proceed with removal of acrochordon. Area cleaned thoroughly with alcohol and Betadine. E xcision was performed with sharp scissors. Pressure was applied, and hemostasis was achieved via silver nitrate. Bandage was applied and post-procedural care was described to patient, who verbalized understanding. EBL: <3 mL Pre-procedural pain: 0 Post-procedural pain: 0 Ordered: [id number] - Clinic Est Level 4 Excision Benign Lesion Scalp Neck Hand Feet .6-1.0cm 14670 All questions answered and appropriate patient education provided to patient/family. Return precautions, if relevant, were discussed. P atient/family instructed to use the [employer] Portal for patient handouts; appropriate handouts added P ortions of the note completed through use of Dragon Dictate; if errors are detected please ask for clarification. Extracted from:Title: [facility] note-Rash Author: HUGO CASILLAS Date: 04/14/20 1. T inea corporis p ossible fungal etiology vs eczema. Discussed these possible diagnoses with patient. Trial of clotrimazole prescribed. Recommend return for further evaluation if not improving after 1-2 weeks of use. Also discussed emollient treatment for possible eczema. Ordered: clotrimazole topical, 1 appl(s), Topical, BID, # 28 g, 1 total refill(s), Acute, Route to [facility] [[facility] Rx: #28.35 x 09/08 refills remaining, last filled 04/14/20] Extracted from:Title: Ambulatory Patient Education Author: HUGO CASILLAS Date: 04/14/20 Patient Education Materials Follows:Disease Body Ringworm Body ringworm is an infection of the skin that often causes a ring-shaped rash. Body ringworm is also called tinea corporis. Body ringworm can affect any part of your skin. This condition is easily spread from person to person (is very contagious). What are the causes? This condition is caused by fungi called dermatophytes. The condition develops when these fungi grow out of control on the skin. You can get this condition if you touch a person or animal that has it. You can also get it if you share any items with an infected person or pet. These include: Clothing, bedding, and towels. Brushes or smiley. Gym equipment. Any other object that has the fungus on it. What increases the risk? You are more likely to develop this condition if you: Play sports that involve close physical contact, such as wrestling. Sweat a lot. Live in areas that are hot and humid. Use public showers. Have a weakened immune system. What are the signs or symptoms? Symptoms of this condition include: Itchy, raised red spots and bumps. Red scaly patches. A ring-shaped rash. The rash may have: A clear center. Scales or red bumps at its center. Redness near its borders. Dry and scaly skin on or around it. How is this diagnosed? This condition can usually be diagnosed with a skin exam. A skin scraping may be taken from the affected area and examined under a microscope to see if the fungus is present. How is this treated? This condition may be treated with: An antifungal cream or ointment. An antifungal shampoo. Antifungal medicines. These may be prescribed if your ringworm: Is severe. Keeps coming back. Lasts a long time. Follow these instructions at home: Take [id number] and prescription medicines only as told by your health care provider. If you were given an antifungal cream or ointment: Use it as told by your health care provider. Wash the infected area and dry it completely before applying the cream or ointment. If you were given an antifungal shampoo: Use it as told by your health care provider. Leave the shampoo on your body for 3 5 minutes before rinsing. While you have a rash: Wear loose clothing to stop clothes from rubbing and irritating it. Wash or change your bed sheets every night. Disinfect or throw out items that may be infected. Wash clothes and bed sheets in hot water. Wash your hands often with soap and water. If soap and water are not available, use hand optics technical officer. If your pet has the same infection, take your pet to see a surveillance officer for treatment. How is this prevented? Take a bath or shower every day and after every time you work out or play sports. Dry your skin completely after bathing. Wear sandals or shoes in public places and showers. Change your clothes every day. Wash athletic clothes after each use. Do not share personal items with others. Avoid touching red patches of skin on other people. Avoid touching pets that have bald spots. If you touch an animal that has a bald spot, wash your hands. Contact a health care provider if: Your rash continues to spread after 7 days of treatment. Your rash is not gone in 4 weeks. The area around your rash gets red, warm, tender, and swollen. Summary Body ringworm is an infection of the skin that often causes a ring-shaped rash. This condition is easily spread from person to person (is very contagious). This condition may be treated with antifungal cream or ointment, antifungal shampoo, or antifungal medicines. Take bvfl-fav-uffwaoj and prescription medicines only as told by your health care provider. This information is not intended to replace advice given to you by your health care provider. Make sure you discuss any questions you have with your health care provider. Document Released: 08/22/2001 Document Revised: 04/23/2019 Document Reviewed: 04/23/2019 [employer] Interactive Patient Education 2019 [employer]. Extracted from:Title: Post OBGYN Office Clinic Note Author: MEMO AGUERO PA Date: 04/10/20 1. P ost [age] y/o s/p with uncomplicated PP course. Breast feeding well. No depression. Immunizations UTD. PAP due, completed today, see below. C ounseled about contraception, pt elects Mirena IUD, would like to have placed today, see below. Has a resolving hemorrhoid, no BRBPR, declines tx. WWE in 1 year. 2. B irth control I UD insertion procedure note: Pre Procedure: LMP prior to . N o unprotected intercourse since delivery. Urine HCG negative. PRE-OP DIAGNOSIS: desired long active reversible contraception. POST-OP DIAGNOSIS: Same PROCEDURE: IUD insertion [x ] Mirena [ ] Shanna [ ] Paragard Performing Provider: FARNAZ Vazquez Lot #: [id number] Expiration: JUL 2022 UNIVERSAL PROTOCOL/Timeout Procedure: The following were verified and correct: [X] Patient name and [X] Procedure [X] Procedure consent signed and witnessed [X] Correct equipment available [X] Specimen labels verified by patient [X] Time out completed by provider and evaluation assistant. Chaperoned and Assisted by:Flower PROCEDURE: A bimanual exam was done to determine the position of the uterus. A speculum was placed. Sterile technique was maintained throughout the procedure. A GC swab was obtained. The cervix was prepped with betadine. A single tooth tenaculum was [x_] used [_] not used. The uterus was sounded to 8 .5 cm. The IUD applicator was adjusted to the appropriate depth and the IUD was inserted into the uterus without complications and tolerated well by the patient. The strings were trimmed to 4 cm. The tenaculum sites were hemostatic after applying direct pressure. EBL: < 1ml Pain prior to placement 0/10 Pain after placement 0/10 Uncomplicated M slava I UD insertion. L eft clinic with no vasovagal sxs. E R for fever or severe abd pain. P ost IUD instructions discussed. N SAIDS as directed PRN comfort. I UD reminder card given to pt. 5 year removal. Ordered: Beta HCG Qualitative, Urine 3. C ancer cervix - screening done P AP with HPV reflex today. No hx of abnormal PAPs. F/U per ASCCP guidelines. Extracted from:Title: Summary Document Author: SYSTEM, SYSTEM Maria De Jesus Pretty Acct Date: 04/07/20 Odessa Nagel : 1990 Age: 30 Years Odessa Nagel : [birth year] Summary (Date of Report: 04/07/20) G 2 P 1 (1,0,0,1) Gestation: -- LMP: 05/29/2019 (from pt. history) MIGUEL: 03/04/2020 MIGUEL/EGA Method: Last Menstrual Period EGA: 44 weeks 5 days Odessa Nagel : [birth year] Antepartum Note Date: 07/14/19 15:01 (6 weeks) By: HERIBERTO ASHLEY LPN No OHIpt contact # [phone] screen neg Odessa Nagel : [birth year] Problems (Active Problems Only) (SNOMED CT: [id number], Onset: 05/29/19) Dandruff ([facility] CT: [id number], Onset: --) Allergic rhinitis ([facility] CT: [id number], Onset: --) Odessa Nagel : [birth year] Risk Factors and Genetic Screening Risk Factors (Current ) Risk Factors: -- Risk Factors Comments: -- Ethnic Screening Baby's father: Self, Baby's father: Genetic Disorders Screening No genetic disorders have been recorded. Odessa Nagel : [birth year] Gestational Age (EGA) and MIGUEL * Note: EGA calculated as of 04/07/2020 MIGUEL: 03/04/2020 EGA*: 44 weeks 5 days Type: Authoritative Method Date: 05/29/2019 Method: Last Menstrual Period (05/29/2019) Confirmation: Confirmed Description: Normal Amount/Duration Comments: -- Entered by: HERIBERTO ASHLEY LPN on 07/14/2019 Other MIGUEL Calculations for this : No additional MIGUEL calculations have been recorded for this Odessa Nagel : [birth year] Measurements Pre- Weight: 74.8 kg 02/24/20 (38 weeks) Recent Weight Measured: 88.6 kg (+14) 02/24/20 (38 weeks) Height/Length Measured: 165 cm 02/24/20 (38 weeks) Body Mass Index Measured: 32.54 kg/m2 02/24/20 (38 weeks) Odessa Nagel : [birth year] Exam and Notes Date JOSE Diallo PTL S/S Cervix BP Weight Urine Baby cm Dil Eff(%) Sta mmHg lbs kg Gluc Prot FHR Activity Fet Pres 02/24/20 38w5d 39 -- -- -- -- 118/72 *195... -- -- Baby A = Present -- 02/18/20 37w6d 38 -- 2 70% -2 115/69 *194... -- -- Baby A = Present -- 02/10/20 36w5d 37 -- -- -- -- 126/78 *195... -- -- Baby A = Present -- 01/14/20 32w6d 33 -- -- -- -- 115/60 *185... -- -- Baby A = Present -- 12/17/19 28w5d 28 None -- -- -- 120/68 *178... -- -- Baby A = Present -- 11/05/19 22w6d 22 -- -- -- -- 114/72 *179... -- -- -- -- -- 11/01/19 22w2d -- -- -- -- -- 120/69 *179... -- -- -- -- -- 09/23/19 16w5d -- -- -- -- -- 132/76 *172... -- -- Baby A = Present -- 09/21/19 16w3d -- -- -- -- -- 125/81 *174... -- -- -- -- -- 08/10/19 10w3d -- -- -- -- -- 122/68 *169... -- -- -- -- -- 07/26/19 8w2d -- -- -- -- -- 122/67 *169... -- -- -- -- -- 07/14/19 6w4d -- -- -- -- -- 122/67 *169... -- -- -- -- -- 06/28/19 4w2d -- -- -- -- -- 119/79 *169... -- -- -- -- -- * Weight 02/24/2020 195.363(lbs) 88.6(kg) 02/18/2020 194.702(lbs) 88.3(kg) 02/10/2020 195.804(lbs) 88.8(kg) 01/14/2020 185.220(lbs) 84(kg) 12/17/2019 178.605(lbs) 81(kg) 11/05/2019 179.046(lbs) 81.2(kg) 11/01/2019 179.487(lbs) 81.4(kg) 09/23/2019 172.210(lbs) 78.1(kg) 09/21/2019 174.857(lbs) 79.3(kg) 08/10/2019 169.565(lbs) 76.9(kg) 07/26/2019 169.124(lbs) 76.7(kg) 07/14/2019 169.785(lbs) 77(kg) 06/28/2019 169.785(lbs) 77(kg) Odessa Nagel : [birth year] Physical Exams Physical Exam Respiratory SpO2: 99 % (02/24/20) Oxygen Flow Rate: 10 L/min (01/14/20) Odessa Nagel : [birth year] Blood Types and Anti-D Immune Globulin Blood Type and Screen Mother ABO/Rh: -- Mother Antibody Screen: -- Father of Baby ABO/Rh: -- Father of Baby Antibody Screen: -- Anti-D Immune Globulin Rho(D) Initial Status: -- Rho(D) 28 Week Status: -- Rho(D) Dates Given: -- Odessa Nagel : [birth year] Tests and Lab Results Results ending with 'TR' have been keyed in by the practice or interpreted manually. Result Date: Estimated weeks post onset will display next to actual result date. Test Result Date Ref Range Beta hCG, Urine Qual (A) Positive 07/02/19 (4 weeks) Negative UA Color Yellow 07/14/19 (6 weeks) Yellow UA Ketones Trace 07/14/19 (6 weeks) Negative UA Micro Ind? Not Indicated 07/14/19 (6 weeks) Not Indicated UA Leuk Esterase Negative 07/14/19 (6 weeks) Negative UA Bili Negative 07/14/19 (6 weeks) Negative UA Protein (N) Trace 07/14/19 (6 weeks) Negative UA Blood Negative 07/14/19 (6 weeks) Negative UA Glucose Negative 07/14/19 (6 weeks) Negative UA Spec [place] (A) >=1.030 07/14/19 (6 weeks) UA pH 6.5 07/14/19 (6 weeks) UA Urobilinogen 1.0 07/14/19 (6 weeks) 0.2 UA Appear Clear 07/14/19 (6 weeks) Clear UA Nitrite Negative 07/14/19 (6 weeks) Negative CFPS Testing Consent.KS Yes 07/14/19 (6 weeks) Cystic Fibrosis Scrn.KS (N) None of 39 Common Mutations, see below. 07/14/19 (6 weeks) CFPS Pt. Race-Father.KS Black 07/14/19 (6 weeks) CFPS Provider Contact.KS (N) [phone] 07/14/19 (6 weeks) CFPS Family Hx?.KS No 07/14/19 (6 weeks) CFPS Ind. for Test.KS Scrn 07/14/19 (6 weeks) CFPS Pt. Race-Mother Black 07/14/19 (6 weeks) CFPS Pt. Symptoms.KS (N) none 07/14/19 (6 weeks) Hemoglobin (L) 12.4 g/dL 07/14/19 (6 weeks) (14.0 - 18.0) MCHC 34.8 g/dL 07/14/19 (6 weeks) (32.0 - 36.0) MCH 29.6 pg 07/14/19 (6 weeks) (27.0 - 36.0) RDW 11.9 % 07/14/19 (6 weeks) (10.9 - 15.1) WBC 6.76 10^3/uL 07/14/19 (6 weeks) (4.60 - 11.00) MCV 85.0 fL 07/14/19 (6 weeks) (82.0 - 99.0) Hematocrit (L) 35.6 g/dL 07/14/19 (6 weeks) (36.0 - 46.0) MPV 9.3 fL 07/14/19 (6 weeks) (7.0 - 11.0) RBC 4.19 10^6/uL 07/14/19 (6 weeks) (3.80 - 5.20) Platelets (H) 404 10^3/uL 07/14/19 (6 weeks) (130 - 400) Neutrophil % Auto (L) 53.7 % 07/14/19 (6 weeks) (54.0 - 77.0) Monocyte % Auto 8.6 % 07/14/19 (6 weeks) (0.0 - 15.0) Neutro Absolute 3.63 10^3/uL 07/14/19 (6 weeks) (2.00 - 7.00) Eosinophil % Auto 1.2 % 07/14/19 (6 weeks) (0.0 - 4.0) Lymphocyte % Auto 35.7 % 07/14/19 (6 weeks) (15.0 - 41.0) [place] Absolute 0.58 10^3/uL 07/14/19 (6 weeks) (0.20 - 0.90) Baso Absolute 0.05 10^3/uL 07/14/19 (6 weeks) (0.00 - 0.20) Basophil % Auto 0.7 % 07/14/19 (6 weeks) (0.0 - 2.0) Eos Absolute 0.08 10^3/uL 07/14/19 (6 weeks) (0.00 - 0.70) Lymph Absolute 2.41 10^3/uL 07/14/19 (6 weeks) (1.00 - 4.50) Imm. Granulocyte Absolute (N) <0.04 07/14/19 (6 weeks) Imm. Granulocyte % 0.1 % 07/14/19 (6 weeks) (0.0 - 2.0) OP ABSC: Negative 07/14/19 (6 weeks) OP ABORh (U) B POS 07/14/19 (6 weeks) ABORh Retype (U) B POS 07/14/19 (6 weeks) Hgb Variant LC (N) 0.0 % 07/14/19 (6 weeks) 0.0 Hgb S LC (N) 0.0 % 07/14/19 (6 weeks) 0.0 Hgb A LC (N) 97.4 % 07/14/19 (6 weeks) 96.4-98.8 Hgb Solubility LC (N) Negative 07/14/19 (6 weeks) Negative Hgb C LC (N) 0.0 % 07/14/19 (6 weeks) 0.0 Hgb Interpretation LC (N) Comment 07/14/19 (6 weeks) Hgb A2 LC (N) 2.6 % 07/14/19 (6 weeks) 1.8-3.2 Hgb F LC (N) 0.0 % 07/14/19 (6 weeks) 0.0-2.0 Varicella Virus IgG.EPI (N) POSITIVE 07/14/19 (6 weeks) Rubella Ab Screen (A) Pos 07/14/19 (6 weeks) Neg Syphilis Screen Non-Reactive 07/14/19 (6 weeks) Non-Reactive HIV-1/O/2.EPI (N) NON-REACTIVE 07/14/19 (6 weeks) NON-REACTIVE Chlamydia Scrn Neg 07/14/19 (6 weeks) Neg GC Scrn Neg 07/14/19 (6 weeks) Neg Test Result Date Ref Range Ser Int-1 Submit Part 2 Sample Using LC (N) Date: 08/10/19 (10 weeks) Ser Int-1 Number of Fetuses LC (N) 1 08/10/19 (10 weeks) Ser Int-1 Race LC (N) Black 08/10/19 (10 weeks) Ser Int-1 Gest. Age Based on LC (N) MIGUEL 08/10/19 (10 weeks) Ser Int-1 Gestational Age LC (N) 10.4 weeks 08/10/19 (10 weeks) Ser Int-1 Maternal Age at MIGUEL LC (N) 28.6 years 08/10/19 (10 weeks) AZEB-A Value LC (N) 305.0 ng/mL 08/10/19 (10 weeks) Ser Int-1 Weight LC (N) 169 lb 08/10/19 (10 weeks) Ser Int-1 Test Results: LC (N) Comment 08/10/19 (10 weeks) Ser Int-1 Comments LC (N) Comment 08/10/19 (10 weeks) Ser Int-1 Results LC (N) Report 08/10/19 (10 weeks) Ser Int-1 Note LC (N) Comment 08/10/19 (10 weeks) Age of Egg Donor (##).LC (N) 27 08/10/19 (10 weeks) Donor Egg.LC N 08/10/19 (10 weeks) MIGUEL/EDC Date (MDD).LC (N) [id number] 08/10/19 (10 weeks) FHX NTD. N 08/10/19 (10 weeks) GA Calculation Method. LMP 08/10/19 (10 weeks) GA Date of Calc (YMMDD).LC (N) [id number] 08/10/19 (10 weeks) Gest Age (Decimal, ##.#).LC (N) 10.3 08/10/19 (10 weeks) Insulin Dependent. N 08/10/19 (10 weeks) Nbr of Fetuses (#).LC (N) 1 08/10/19 (10 weeks) Other Indications. N 08/10/19 (10 weeks) Previously Elevated AFP. N 08/10/19 (10 weeks) Prior Down Syndrome/ONDT Screen. N 08/10/19 (10 weeks) Prior First Trimester Testing. N 08/10/19 (10 weeks) Prior With Down Syndrome. N 08/10/19 (10 weeks) AFP Value LC (N) 42.8 ng/mL 09/23/19 (16 weeks) Prior With Down Syndrome. N 09/23/19 (16 weeks) Ser Int-2 Gest. Age Based on LC (N) MIGUEL 09/23/19 (16 weeks) TERENCE Value LC (N) 142.0 pg/mL 09/23/19 (16 weeks) Ser Int-2 Test Results: LC (N) *Screen Negative* 09/23/19 (16 weeks) Ser Int-2 Comments: LC (N) Comment 09/23/19 (16 weeks) Ser Int-2 OSB Interpretation LC (N) Comment 09/23/19 (16 weeks) Ser Int-2 AZEB-A MoM LC (N) 0.77 09/23/19 (16 weeks) Ser Int-2 Number of Fetuses LC (N) 1 09/23/19 (16 weeks) Ser Int-2 Collected On (N) Date: 09/23/19 (16 weeks) Ser Int-2 FIRST TRIMESTER SAMPLE LC (N) Comment 09/23/19 (16 weeks) Ser Int-2 Trisomy 18 Interpretation LC (N) Comment 09/23/19 (16 weeks) uE3 Value LC (N) 0.83 ng/mL 09/23/19 (16 weeks) Ser Int-2 Maternal Age at MIGUEL LC (N) 28.4 years 09/23/19 (16 weeks) Ser Int-2 SECOND TRIMESTER SAMPLE LC (N) Comment 09/23/19 (16 weeks) Ser Int-2 Race LC (N) Black 09/23/19 (16 weeks) Ser Int-2 TERENCE MoM LC (N) 0.94 09/23/19 (16 weeks) Ser Int-2 Weight (N) 169 lb 09/23/19 (16 weeks) Ser Int-2 Insulin Dep Diabetes LC (N) No 09/23/19 (16 weeks) Ser Int-2 Down Syndrome LC (N) Age Risk: 09/23/19 (16 weeks) Ser Int-2 Results LC (N) Report 09/23/19 (16 weeks) AZEB-A Value LC (N) 305.0 ng/mL 09/23/19 (16 weeks) Ser Int-2 Down Syndrome Interp LC (N) Comment 09/23/19 (16 weeks) Ser Int-2 Trisomy 18 (N) Screening Risk: 09/23/19 (16 weeks) hCG Value LC (N) 28.8 IU/mL 09/23/19 (16 weeks) Ser Int-2 Weight LC (N) 172 lb 09/23/19 (16 weeks) Ser Int-2 Note: LC (N) Comment 09/23/19 (16 weeks) Ser Int-2 hCG MoM LC (N) 1.01 09/23/19 (16 weeks) Ser Int-2 uE3 MoM LC (N) 0.85 09/23/19 (16 weeks) Ser Int-2 Gestational Age (N) 16.7 weeks 09/23/19 (16 weeks) Ser Int-2 Collected On LC (N) Date: 09/23/19 (16 weeks) Ser Int-2 AFP MoM LC (N) 1.24 09/23/19 (16 weeks) Ser Int-2 Trisomy 18 LC (N) Age Risk: 09/23/19 (16 weeks) Ser Int-2 Down Syndrome (N) Screening Risk: 09/23/19 (16 weeks) Ser Int-2 Open Spina Bifida LC (N) Screening Risk: 09/23/19 (16 weeks) Age of Egg Donor (##).LC (N) 27 09/23/19 (16 weeks) Donor Egg. N 09/23/19 (16 weeks) FHX NTD. N 09/23/19 (16 weeks) GA Calculation Method. MIGUEL/EDC 09/23/19 (16 weeks) GA Date of Calc (YYYYMMDD). (N) [id number]/23/19 (16 weeks) Gest Age (Decimal, ##.#). (N) 16.5 09/23/19 (16 weeks) Insulin Dependent. N 09/23/19 (16 weeks) Nbr of Fetuses (#). (N) 1 09/23/19 (16 weeks) Other Indications. N 09/23/19 (16 weeks) Previously Elevated AFP. N 09/23/19 (16 weeks) Prior Down Syndrome/ONDT Screen. N 09/23/19 (16 weeks) Prior First Trimester Testing. N 09/23/19 (16 weeks) Ser Int-2 Gestational Age LC (N) 10.4 weeks 09/23/19 (16 weeks) UA Leuk Esterase Negative 11/12/19 (23 weeks) Negative UA Nitrite Negative 11/12/19 (23 weeks) Negative UA Color Yellow 11/12/19 (23 weeks) Yellow UA Protein Negative 11/12/19 (23 weeks) Negative UA Blood Negative 11/12/19 (23 weeks) Negative UA Glucose Negative 11/12/19 (23 weeks) Negative UA Urobilinogen 0.2 11/12/19 (23 weeks) 0.2 UA Spec [place] 1.025 11/12/19 (23 weeks) UA pH 6.5 11/12/19 (23 weeks) UA Micro Ind? Not Indicated 11/12/19 (23 weeks) Not Indicated UA Ketones Negative 11/12/19 (23 weeks) Negative UA Bili Negative 11/12/19 (23 weeks) Negative UA Appear Clear 11/12/19 (23 weeks) Clear MPV 9.3 fL 11/12/19 (23 weeks) (7.0 - 11.0) RBC (L) 3.68 10^6/uL 11/12/19 (23 weeks) (3.80 - 5.20) Hematocrit (L) 32.3 g/dL 11/12/19 (23 weeks) (36.0 - 46.0) MCHC 34.1 g/dL 11/12/19 (23 weeks) (32.0 - 36.0) Differential? Auto 11/12/19 ( weeks) Hemoglobin (L) 11.0 g/dL 11/12/19 ( weeks) (14.0 - 18.0) WBC 7.07 10^3/uL 11/12/19 ( weeks) (4.60 - 11.00) MCH 29.9 pg 11/12/19 (23 weeks) (27.0 - 36.0) MCV 87.8 fL 11/12/19 (23 weeks) (82.0 - 99.0) RDW 12.7 % 11/12/19 ( weeks) (10.9 - 15.1) Platelets 276 10^3/uL 11/12/19 ( weeks) (130 - 400) Baso Absolute <0.04 10^3/uL 11/12/19 ( weeks) (0.00 - 0.20) Lymphocyte % Auto 21.9 % 11/12/19 ( weeks) (15.0 - 41.0) Neutro Absolute 4.94 10^3/uL 11/12/19 (23 weeks) (2.00 - 7.00) Monocyte % Auto 5.0 % 11/12/19 (23 weeks) (0.0 - 15.0) Lymph Absolute 1.55 10^3/uL 11/12/19 (23 weeks) (1.00 - 4.50) Eos Absolute 0.07 10^3/uL 11/12/19 (23 weeks) (0.00 - 0.70) Basophil % Auto 0.3 % 11/12/19 (23 weeks) (0.0 - 2.0) [place] Absolute 0.35 10^3/uL 11/12/19 (23 weeks) (0.20 - 0.90) Imm. Granulocyte Absolute (N) 0.14 11/12/19 (23 weeks) Imm. Granulocyte % 2.0 % 11/12/19 (23 weeks) (0.0 - 2.0) Neutrophil % Auto 69.8 % 11/12/19 (23 weeks) (54.0 - 77.0) Eosinophil % Auto 1.0 % 11/12/19 (23 weeks) (0.0 - 4.0) Gluc 1 Hr 154 mg/dL 11/12/19 (23 weeks) (65 - 184) HBsAg Screen.LC (N) Negative 11/12/19 (23 weeks) Negative Treponema pallidum Ab.EPI (N) NON-REACTIVE index 11/12/19 (23 weeks) NON-REACTIVE Test Result Date Ref Range Gluc Baseline 91 mg/dL 11/19/19 (24 weeks) (74 - 106) Gluc 2 Hr (H) 162 mg/dL 11/19/19 (24 weeks) (65 - 138) Gluc 3 Hr (H) 138 mg/dL 11/19/19 (24 weeks) (65 - 110) Gluc 1 Hr 148 mg/dL 11/19/19 (24 weeks) (65 - 184) Test Result Date Ref Range Albumin (L) 2.9 g/dL 02/18/20 (37 weeks) (3.4 - 5.0) Protein Total 7.1 g/dL 02/18/20 (37 weeks) (6.4 - 8.2) AGAP (L) 9 mmol/L 02/18/20 (37 weeks) (10 - 20) Creatinine Level 0.62 mg/dL 02/18/20 (37 weeks) (0.55 - 1.02) Glucose Lvl (L) 69.0 mg/dL 02/18/20 (37 weeks) (74.0 - 106.0) ALT 22 U/L 02/18/20 (37 weeks) (12 - 78) CO2 24 mmol/L 02/18/20 (37 weeks) (21 - 32) Bilirubin Total 0.6 mg/dL 02/18/20 (37 weeks) (0.2 - 1.0) Chloride 103 mmol/L 02/18/20 (37 weeks) (98 - 107) Bilirubin Direct 0.12 mg/dL 02/18/20 (37 weeks) (0.00 - 0.20) Potassium Lvl 3.7 mmol/L 02/18/20 (37 weeks) (3.5 - 5.1) AST 18 U/L 02/18/20 (37 weeks) (15 - 37) Alk Phos (H) 222 U/L 02/18/20 (37 weeks) (30 - 120) Sodium 136 mmol/L 02/18/20 (37 weeks) (136 - 145) BUN/Creat Ratio (N) 10 02/18/20 (37 weeks) Calcium 8.9 mg/dL 02/18/20 (37 weeks) (8.5 - 10.1) BUN (L) 6.0 mg/dL 02/18/20 (37 weeks) (7.0 - 18.0) eGFR AA 143 mL/min 02/18/20 (37 weeks) >=60 eGFR Non-AA 124 mL/min 02/18/20 (37 weeks) >=60 Bile Acids Total.LC (N) 3.0 umol/L 02/18/20 (37 weeks) Cholate.LC (N) 0.70 umol/L 02/18/20 (37 weeks) Chenodeoxycholate.LC (N) 0.80 umol/L 02/18/20 (37 weeks) Deoxycholate.LC (N) 1.5 umol/L 02/18/20 (37 weeks) Ursodeoxycholate.LC (N) <0.10 umol/L 02/18/20 (37 weeks) Odessa Nagel: 89 Allergies (Active and Proposed Allergies Only) No Known Allergies (Severity: Unknown severity, Onset: Unknown) Odessa Nagel : 89 Medications Prescriptions and Home Medications Currently Active or Taking Claritin 10 mg oral tablet SI tab(s), Oral, Daily, PRN: allergy symptoms, 90 tab(s), 3 Refill(s) Ordered: 11/01/19 Provider: AURY NUNN Classic oral tablet SI tab(s), Oral, Daily, 30 tab(s), 0 Refill(s) Ordered: 03/03/20 Provider: MEMO AGUERO PA Colace 100 mg oral capsule SI cap(s), Oral, BID, PRN: constipation, 20 cap(s), 0 Refill(s) Ordered: 03/03/20 Provider: MEMO AGUERO PA loratadine 10 mg tablet SI mg, Oral, Daily, PRN, 90 EA, 3 Refill(s) Ordered: 11/01/19 Provider: AURY NUNN pyridoxine 50 mg tablet SIG: See Rx Instructions, 60 EA, 0 Refill(s) Ordered: 07/26/19 Provider: MEMO AGUERO PA triamcinolone 0.025% cream[15g] SI appl(s), Topical, BID, 15 g, 0 Refill(s) Ordered: 11/01/19 Provider: AURY NUNN Inactive or Suspended (Prescriptions and documented medications since 02/26/19) acetaminophen 325 mg oral tablet SI tab(s), Oral, every 4 hr, PRN: pain or fever, 100 tab(s), 0 Refill(s) Status: Completed Ordered: 03/03/20 Provider: MEMO AGUERO PA acetaminophen 325 mg tablet SI mg, Oral, every 4 hr, PRN, 100 EA, 0 Refill(s) Status: Completed Ordered: 03/03/20 Provider: MEMO AGUERO PA azithromycin 250 mg oral tablet SIG: see instructions, take 2 tablets today then 1 tablet daily for 4 days, 6 tab(s), 0 Refill(s) Status: Completed Ordered: 09/21/19 Provider: MILY PRINCE azithromycin 250 mg tablet (6EA) SIG: See Rx Instructions, 6 EA, 0 Refill(s) Status: Completed Ordered: 09/21/19 Provider: MILY PRINCE Bactroban 2% topical ointment SI appl(s), Topical, TID, 22 g, 0 Refill(s) Status: Completed Ordered: 11/09/19 Provider: AURY NUNN Diflucan 150 mg oral tablet SI tab(s), Oral, As Directed, Once, 1 tab(s), 0 Refill(s) Status: Discontinued Ordered: 09/20/19 Provider: MINDY ETIENNE docusate sodium 100 mg capsule SI mg, Oral, BID, PRN, 20 EA, 0 Refill(s) Status: Completed Ordered: 03/03/20 Provider: MEMO AGUERO PA erythromycin 0.5% Eye-Oint [3.5g] SI appl(s), Eye-Both, QID, 3.5 g, 0 Refill(s) Status: Completed Ordered: 09/21/19 Provider: MILY PRINCE erythromycin 0.5% ophthalmic ointment SI appl(s), Eye-Both, QID, 3.5 g, 0 Refill(s) Status: Completed Ordered: 09/21/19 Provider: MILY PRINCE fluconazole 150 mg tablet SI mg, Oral, As Directed, 1 EA, 0 Refill(s) Status: Discontinued Ordered: 09/20/19 Provider: MINDY ETIENNE ibuprofen 800 mg oral tablet SI tab(s), Oral, every 8 hr, 30 tab(s), 0 Refill(s) Status: Completed Ordered: 03/03/20 Provider: MEMO AGUERO PA ibuprofen 800 mg tablet SI mg, Oral, every 8 hr, 30 EA, 0 Refill(s) Status: Completed Ordered: 03/03/20 Provider: MEMO AGUERO PA mupirocin topical 2% Oin [22g] SI appl(s), Topical, TID, 22 g, 0 Refill(s) Status: Completed Ordered: 11/09/19 Provider: AURY NUNN PNV oral tablet (Historically recorded) SI tab(s), Oral, Daily, 100 tab(s), 3 Refill(s) Status: Discontinued Ordered: 07/14/19 Provider: -- PNV oral tablet SI tab(s), Oral, Daily, 90 tab(s), 0 Refill(s) Status: Discontinued Ordered: 09/23/19 Provider: CHANDLER YOON multivitamins w/Folic Acid 0.8 mg tablet SI.8 mg, Oral, Daily, 100 EA, 0 Refill(s) Status: Completed Ordered: 03/03/20 Provider: MEMO AGUERO PA Prenavite with 0.8 mg Folic Acid tablet SI.8 mg, Oral, Daily, 100 EA, 0 Refill(s) Status: Completed Ordered: 09/23/19 Provider: CHANDLER YOON triamcinolone 0.025% topical cream SI appl(s), Topical, BID, for 14 days, apply a thin film to affected area, 15 g, 0 Refill(s) Status: Completed Ordered: 11/01/19 Provider: AURY NUNN Vitamin B6 50 mg oral tablet SIG: See Instructions, 1/2 tab PO TID for Nausea, 60 tab(s), 0 Refill(s) Status: Completed Ordered: 07/26/19 Provider: MEMO AGUERO PA Medication Administrations In-Office/Hospital (All in-office/hospital administrated medications ordered since 02/26/19) Afluria, influenza vaccine IIV4 [3 yr+] (influenza vaccine IIV4 (Afluria) [3 yr+] 0.5 mL syringe) 0.5 mL, IntraMuscular, Vaccine Status: Completed Ordered: 08/10/19 Provider: GENEVIEVE ALDRIDGE Boostrix (Tdap) (tetanus/diphtheria/pertussis (Boostrix Tdap) 0.5 mL injection) 0.5 mL, IntraMuscular, Once Status: Completed Ordered: 12/17/19 Provider: GENEVIEVE ALDRIDGE Odessa Nagel : 89 Immunizations influenza virus vaccine, inactivated 08/10/19 (10 weeks) tetanus, diphtheria, acellular pertussis 12/17/19 (28 weeks) Odessa Nagel : 89 Menstrual History Last Recorded Menstrual Period: 05/29/2019 Last Menstrual Period Description: -- Menarche Onset: 14 years Menarche Frequency: -- Menarche Length: -- Date of Menses Prior to LMP: -- On Hormonal Contracept within 2 months of LMP: -- Date of Home Test: -- Comments: -- Odessa Nagel : 89 History (1,0,0,1) # 1 Baby 1 Outcome Date: 06/01/2016 Outcome: Live Outcome or Result: Vaginal Gender: Female Gest Age: 39 weeks Wt: 3515 g Hospital: [facility] Labor: 10 hr Child's Name: -- Baby's Father: -- Anesthesia Type: Epidural Labor: No Odessa Nagel : 89 Medical History Past Medical History Nausea present (SNOMED CT: ) Onset Age: -- Resolved: -- Family History 33 = Father (OHI) (Name not documented, Alive) Hypertension 32 = Mother (OHI) (Name not documented, Alive) Hypertension 04 = Grandfather or Grandmother (OHI) (Name not documented, Alive) 34 = Other Adult (OHI) (Name not documented, Alive) Diabetes Paternal Grandmother - FH (Name not documented, Alive) Cancer Procedure or Surgical History Tonsillectomy Age: 24 Years Date: 2014 Office or other outpatient visit for the evaluation and management of an established patient, that may not require the presence of a physician or other qualified health hospice care transitions coordinator. Usually, the presenting problem(s) are minimal. Typically, 5 minute Age: -- Date: -- Office or other outpatient visit for the evaluation and management of an established patient, which requires at least 2 of these 3 aggarwal components: A detailed history; A detailed examination; Medical decision making of moderate complexity. Counseling and/o Age: -- Date: -- Office or other outpatient visit for the evaluation and management of an established patient, which requires at least 2 of these 3 aggarwal components: An expanded problem focused history; An expanded problem focused examination; Medical decision making of low Age: -- Date: -- Office or other outpatient visit for the evaluation and management of an established patient, which requires at least 2 of these 3 aggarwal components: An expanded problem focused history; An expanded problem focused examination; Medical decision making of low Age: -- Date: -- Office or other outpatient visit for the evaluation and management of an established patient, which requires at least 2 of these 3 aggarwal components: An expanded problem focused history; An expanded problem focused examination; Medical decision making of low Age: -- Date: -- Office or other outpatient visit for the evaluation and management of an established patient, which requires at least 2 of these 3 aggarwal components: An expanded problem focused history; An expanded problem focused examination; Medical decision making of low Age: -- Date: -- Office or other outpatient visit for the evaluation and management of an established patient, which requires at least 2 of these 3 aggarwal components: An expanded problem focused history; An expanded problem focused examination; Medical decision making of low Age: -- Date: -- Subsequent care visit () [Excludes: patients who are seen for a condition unrelated to or care (eg, an upper respiratory infection; patients seen for consultation only, not for continuing care)] Age: -- Date: -- Subsequent care visit () [Excludes: patients who are seen for a condition unrelated to or care (eg, an upper respiratory infection; patients seen for consultation only, not for continuing care)] Age: -- Date: -- Subsequent care visit () [Excludes: patients who are seen for a condition unrelated to or care (eg, an upper respiratory infection; patients seen for consultation only, not for continuing care)] Age: -- Date: -- Ultrasound, uterus, real time with image documentation, transvaginal Age: -- Date: -- Ultrasound, uterus, real time with image documentation, transvaginal Age: -- Date: -- Weight recorded (PAG) Age: -- Date: -- Weight recorded (PAG) Age: -- Date: -- Odessa Nagel : 89 Social and Psychosocial History Social History Alcohol Denies use Tobacco Smoking tobacco use: Never (less than 100 in lifetime). Domestic Violence Screen Have You Ever Been Emotionally Or Physically Abused by Your Partner: No Have You Been Physically Hurt by Someone Within the Past Year: No Within the Last Year, Has Anyone Forced You to Have Sexual Activity: No Have You Ever Been Emotionally Or Physically Abused by Your Partner: No Have You Been Physically Hurt by Someone Within the Past Year: No Within the Last Year, Has Anyone Forced You to Have Sexual Activity: No Have You Ever Been Emotionally Or Physically Abused by Your Partner: No Within the Last Year, Has Anyone Forced You to Have Sexual Activity: No Odessa Nagel : [birth year] Infection History Chickenpox Odessa Nagel : 89 Anesthesia and Transfusions Prior Anesthesia or Transfusion Received: Prior general anesthesia, No prior transfusion Prior Anesthesia Reaction(s): None Prior Transfusion Reaction(s): -- Blood Transfusion Acceptable to Patient: Yes Odessa Nagel : [birth year] Plan and Patient Requests Education: -- Written Plan: -- Written Plan Location: -- Oral Intake OB: -- Support Person/Gis Programmer Relationship to Pt: -- Labor Preferences: -- Non-Medicinal Pain Relief: -- Anesthesia/Pain Medication During Labor: -- Delivery Plan: -- Feeding: -- Circumcision: -- Baby For Adoption: -- Patient Requests: -- Director Market Intelligence Selected: -- Surrogate : -- Support Person's Name: -- Odessa Nagel : 89 Education 1st Trimester Alcohol Use -- Childbirth Classes -- Domestic Violence -- Drug Use -- Environmental Hazards -- Exercise -- Expected Course of Care -- HIV Testing -- Hospital Facilities -- Influenza Vaccine -- Nutrition Counseling -- Risk Factors Identified by History -- Routine Tests -- Safety -- Seat Belts -- Sexual Activity -- Smoking/Tobacco Use -- Social Service -- Special Diet Counseling -- Toxoplasmosis Precautions -- Travel -- Ultrasound -- Use of Any Medications -- Vaginal Discharge -- Counseling -- Weight Gain -- When to Call Health Care Provider -- Work Hazards -- 2nd Trimester Abnormal Lab Values -- Childbirth Classes -- Choosing a Care Provider -- Domestic Violence -- Influenza Vaccine -- Family Planning -- Tubal Sterilization -- Premature Labor Signs and Symptoms -- Safety -- Smoking/Tobacco Use -- Social Service -- Vaginal Discharge -- 3rd Trimester Analgesia Plans -- Anesthesia Plans -- Plan -- Breast or Bottle Feeding -- Car Seat Safety -- Childbirth Classes -- Circumcision -- Disability Forms -- Domestic Violence -- Family Medical Leave Forms -- Movement Monitoring -- Incision/Episiotomy Care -- Influenza Vaccine -- Labor Signs -- [place] Education -- Depression -- Postterm Counseling -- Safety -- Signs, Symptoms of PIH -- Smoking/Tobacco Use -- Social Service -- Vaginal Discharge -- Counseling -- Educational Materials/Leaflets Provided No educational materials have been recorded as provided L&D Patient Education Activity Expectations -- Activity Restrictions -- Analgesia Plans -- Anesthesia Plans -- Plan -- Contractions -- Diagnostic Results -- Domestic Violence -- Drug to Drug Interactions -- Drug to Food Interactions -- Equipment/Devices -- Monitoring -- Monitoring Assessment -- Fever During -- Infant Security -- Med Generic/Brand Name,Purpose,Action -- Med Preadministration Procedures -- Medication Dosage, Route, Scheduling -- Medication Instructions -- Medication Precautions -- Medication Side Effects -- Nutrition Counseling -- Pain Management -- Plan of Care -- Postoperative Instructions -- Premature Labor Signs and Symptoms -- Preoperative Instructions -- Reportable Symptoms -- Rupture of Membranes -- Safety -- Safety, Fall -- Seat Belts -- Sexual Activity Guideline/Restriction -- Smoking Cessation -- Surgery -- Treatments/Procedures/Tests -- Tubal Sterilization -- Ultrasound -- Unit Procedures -- Vaccinations -- Vaginal Bleeding -- Weight Gain -- Patient Education Activity Expectations -- Bladder/Bowel Function -- Breast Care -- Contact Health Care Provider -- Cramps -- Diagnostic Results -- Equipment/Devices -- Incision/Episiotomy Care -- Lochia Changes -- Med Generic/Brand Name,Purpose,Action -- Medication Dosage, Route, Scheduling -- Medication Precautions -- Nutrition Counseling -- Pain Management -- Perineal Care -- Plan of Care -- Postoperative Instructions -- Depression -- Preoperative Instructions -- Preparing Formula -- Room Orientation -- Safety -- Safety, Fall -- Sibling/Family Adjustment -- Sitz Bath -- Surgery -- Treatments/Procedures/Tests -- Unit Procedures -- Vaginal Discharge -- Odessa Nagel: 89 Registration and Information Race: Black or Ethnicity: Not or Marital Status: Language(s): Bermudian Jehovah'S Witness Preference(s): -- Occupation/Education: [employer] (Non Prsdntl) Address, Phone, and Health Plans Home Address: [address] [facility] [place] [id number] (Home), --, -- Health Plans: 1 - 311 [employer] - AD Fam Mbrs Member/Group: [id number] Deductible: $ -- Type: [employer]D/SRL Global Address: [address] [place] [address] Phone: [phone] 2 - 602 Direct Care and Mail Order and Retail Pharm Member/Group: [id number] Deductible: $ -- Type: DineroTaxi/SRL Global Address: [address] [place] [address] Phone: [phone] 3 - 000: M - No health care Cvrg plan (transfer records only) Member/Group: [id number] Deductible: $ -- Type: Self Pay Address: [address] [place] [address] Phone: [phone] 4 - 000: P - No health care Cvrg plan (transfer records only) Member/Group: [id number] Deductible: $ -- Type: Self Pay Address: [address] [place] [address] Phone: [phone] General Information OB Provider(s) Information: Not explicitly recorded. May be noted in encounter section below. See below for detailed information for all visits and information. Delivery Center/Hospital Information: -- Provider Information: -- Referring Provider Information: ARNDT, ANTEA CHERRON Primary Provider Information: AURY NUNN /Partner Information: -- -- Support Person Information: -- Planned/Unplanned : -- Date Consent Signed for Tubal Ligation: -- Date Record Sent to Hospital: -- Odessa Nagel : 89 Visits and Encounters (Known encounters since 05/29/2019. May include lab encounters.) Date Location Provider Type Medical Service 04/10/2020 [id number] MEMO AGUERO PA Clinic -- 03/01/2020 [id number] ARNDT, [facility] Obstetrics/Gynecology 02/29/2020 [id number] ARNDT, [facility] Obstetrics/Gynecology 02/28/2020 [id number] ARNDT, [facility] Obstetrics/Gynecology 02/24/2020 [id number] ARNDT, [facility] Obstetrics/Gynecology 02/18/2020 [id number]-ER MEMO AGUERO PA [facility] Obstetrics/Gynecology 02/10/2020 [id number]-WE MINDY ETIENNE [facility] Obstetrics/Gynecology 01/14/2020 [id number] MEMO AGUERO PA [facility] Obstetrics/Gynecology 12/17/2019 [id number] ALDRIDGE, [facility] Injections-Immunizations 12/17/2019 [id number]-TW EVELIN ACOSTA [facility] Obstetrics/Gynecology 11/19/2019 [id number]-UPL-PBMEMO WHITTINGTON PA Outpatient Laboratory 11/16/2019 [id number]-DLN-SBMEMO GARCIA PA Outpatient Laboratory 11/15/2019 [id number]-MDE-KMSIXCHANDLER AVILA Outpatient Radiology/Imaging Services 11/12/2019 [id number]-IBA-VIMEMO WHITTINGTON PA Outpatient Laboratory 11/09/2019 [id number]-IE6-[facility]ITAUR[facility] 11/08/2019 [id number] -- Between Visit -- 11/05/2019 [id number] MEMO AGUERO PA [facility] Obstetrics/Gynecology 11/01/2019 [id number]-IG3-QGEQAURY MURO [facility] Primary Care/Family Medicine 10/29/2019 [id number] -- Between Visit -- 10/29/2019 [id number] -- Between Visit -- 10/18/2019 [id number]-MUR-AOJMFCHANDLER GILLIS Outpatient Radiology/Imaging Services 09/29/2019 [id number] -- Between Visit -- 09/23/2019 [id number]-ZJGLG-AN CHANDLER YOON [facility] Obstetrics/Gynecology 09/21/[address] [facility] Urgent Care 09/20/2019 [id number] -- Between Visit -- 08/10/2019 [id number] 08/10/2019 [id number]-SPLAA-MM MINDY ETIENNE [facility] Obstetrics/Gynecology 07/26/2019 [id number]-WLLOJ-AW MEMO AGUERO PA [facility] Obstetrics/Gynecology 07/20/2019 [id number] -- Referral Tracking Defer to Network 07/14/2019 [id number]-FDCVC-AP HERIBERTO ASHLEY [facility] Obstetrics/Gynecology 07/05/2019 [id number] -- Between Visit -- 07/02/2019 9366W-ETZ-SRCHANDLER RODRIGUEZ Outpatient Laboratory 07/02/2019 [id number]-[id number] -- Between Visit -- 06/28/2019 [id number]-WI9-WWHJAURY MURO [facility] Primary Care/Family Medicine Odessa Nagel : [birth year] Visit / Encounter Location Information The following information represents known location and contact information for locations visited during [facility] Address: [address] [place] [address] Phone:[phone] ([address]Drive) [facility] Address: No addresses found on file for location Phone: No phone numbers found on file for location Odessa Nagel : [birth year] Visit Diagnosis (Note: All diagnoses documented since 05/29/2019) 02/24/20 - 38 weeks gestation of (ICD-10-CM: Z3A.38, Date: 02/24/20) 02/24/20 - Excessive weight gain in , unspecified trimester (ICD-10-CM: O26.00, Date: 02/24/20) 02/18/20 - 37 weeks gestation of (ICD-10-CM: Z3A.37, Date: 02/18/20) 02/10/20 - state, incidental (ICD-10-CM: Z33.1, Date: ) 02/10/20 - state, incidental (ICD-10-CM: Z33.1, Date: 02/10/20) 02/10/20 - 36 weeks gestation of (ICD-10-CM: Z3A.36, Date: 02/10/20) 01/14/20 - 32 weeks gestation of (ICD-10-CM: Z3A.32, Date: ) 01/14/20 - 32 weeks gestation of (ICD-10-CM: Z3A.32, Date: 01/14/20) 12/17/19 - Encounter for immunization (ICD-10-CM: Z23, Date: 12/17/19) 12/17/19 - state, incidental (ICD-10-CM: Z33.1, Date: ) 12/17/19 - state, incidental (ICD-10-CM: Z33.1, Date: 12/17/19) 11/12/19 - state, incidental (ICD-10-CM: Z33.1, Date: 11/12/19) 11/09/19 - Cellulitis, unspecified (ICD-10-CM: L03.90, Date: ) 11/09/19 - Cellulitis, unspecified (ICD-10-CM: L03.90, Date: 11/09/19) 11/05/19 - 22 weeks gestation of (ICD-10-CM: Z3A.22, Date: ) 11/05/19 - 22 weeks gestation of (ICD-10-CM: Z3A.22, Date: 11/05/19) 11/01/19 - Seborrhea capitis (ICD-10-CM: L21.0, Date: ) 11/01/19 - Rash and other nonspecific skin eruption (ICD-10-CM: R21, Date: ) 11/01/19 - Allergic rhinitis, unspecified (ICD-10-CM: J30.9, Date: ) 11/01/19 - Allergic rhinitis, unspecified (ICD-10-CM: J30.9, Date: 11/01/19) 11/01/19 - Seborrhea capitis (ICD-10-CM: L21.0, Date: 11/01/19) 11/01/19 - Rash and other nonspecific skin eruption (ICD-10-CM: R21, Date: 11/01/19) 09/23/19 - Encounter for supervision of other normal , second trimester (ICD-10-CM: Z34.82, Date: ) 09/23/19 - 16 weeks gestation of (ICD-10-CM: Z3A.16, Date: ) 09/23/19 - Encounter for supervision of other normal , second trimester (ICD-10-CM: Z34.82, Date: 09/23/19) 09/23/19 - 16 weeks gestation of (ICD-10-CM: Z3A.16, Date: 09/23/19) 09/21/19 - Unspecified blepharitis left upper eyelid (ICD-10-CM: H01.004, Date: ) 09/21/19 - Unspecified blepharitis left upper eyelid (ICD-10-CM: H01.004, Date: 09/21/19) 09/20/19 - Candidiasis of vulva and vagina (ICD-10-CM: B37.3, Date: 09/20/19) 08/10/19 - Underimmunization status (ICD-10-CM: Z28.3, Date: 08/10/19) 08/10/19 - state, incidental (ICD-10-CM: Z33.1, Date: 08/10/19) 08/10/19 - Nausea (ICD-10-CM: R11.0, Date: 08/10/19) 07/26/19 - 8 weeks gestation of (ICD-10-CM: Z3A.08, Date: ) 07/26/19 - 8 weeks gestation of (ICD-10-CM: Z3A.08, Date: 07/26/19) 07/20/19 - Encounter for full-term uncomplicated delivery (ICD-10-CM: O80, Date: ) 07/20/19 - state, incidental (ICD-10-CM: Z33.1, Date: 07/20/19) 07/14/19 - state, incidental (ICD-10-CM: Z33.1, Date: ) 07/14/19 - state, incidental (ICD-10-CM: Z33.1, Date: 07/14/19) Odessa Nagel : 89 Delivery Summary Baby A Monitoring FHR Monitoring Method: Hand held doppler Note: Items documented with '--' had no clinical data which qualified at time of report creation END OF REPORT Extracted from:Title: OB Visit Note Author: KAYLEE ARNDT Date: 02/24/20 1. E xcessive weight gain in cardiac activity within acceptable limits Fundal height is appropriate VS within normal limits Weight gain is excessive Labs are up to date and within acceptable limits: GBS negative 10 FEBRUARY 2020 Varicella and Rubella Immune x2. s/p Flu shot a nd TdaP. Will discuss Gardasil series Aneuploidy screen and CF Low Risk PAP follow-up Structural Survey without anomaly/soft marker or previa Med rec completed with no refills requested PNV with DHA Labor precautions known to patient PIH precautions known to patient movement awareness known to patient Contraception: Mirena IUD planned Cephalic presentation confirmed Follow-up for IOL at 39 weeks Ordered: [id number] - Clinic New Level 1 Weight Recorded 2000F 2. G estation period, 38 weeks Addendum by KAYLEE ARNDT on February 24, 2020 16:12:41 PDT see above Extracted from:Title: 37 weeks OB Visit Note Author: MEMO AGUERO PA Date: 02/18/20 Ordered: Bile Acids,Fractionated LCMS [id number] Comprehensive Metabolic Panel 1. Gestation period, 37 weeks 2 7 Years y o : 2 Para: 1 Para Premature: 0 Para Full Term: 1 Para Abortions: 0 Living Children History: 1 Ectopic Pregnancies History: 0 Spontaneous Abortions Hx: 0 Induced Abortions History: 0 Multiple Births History: 0 @ 37w6d b y L MP with uncomplicated -Normal FHTs and fundal height today - NOB labs WNL, no f/u indicated - CF n egative, low risk - SIS negative, l ow risk - Rh positive, rhogam not indicated - EPDS is normal, no follow-up required - 20 wk survey u/s WNL, but limited eval of outflow tracts, f/u US - normal outflow tracts -Discussed bleeding/cramping, labor, PIH p recautions -FKC known to pt -HBA i nfo received -varicella and rubella immune -flu vaccine a nd Tdap received -3rd tri labs WNL except for failed 1 hr gtt, 3hr gtt w ith one abnormal one borderline, not GDM but encouraged healthy eating/exercise habits -Plans to BF, has pump -Mirena IUD as pp contraception -SVE /-2 IOL scheduled -F/u i n 1 week a nd PRN 2. Itching of feet w/o rash CMP and bile acids today ICP s/sx discussed and to present to [facility] if occur - strict precautions f/u next week with OBGYN 3. N ormal in multigravida Extracted from:Title: OB Visit Note Author: MINDY ETIENNE Date: 02/10/20 1. P regnant -Normal FHTs and fundal height today -Confirmed vertex on limited OB ultrasound today -TDaP and Flu vaccines - received -Discussed labor and bleeding precautions -Discussed kick counts -Discussed after delivery -Discussed contraception after delivery -Completed HBA class in preparation for delivery -Follow-up at L&D for any issues after hours -F/u at 38 weeks - Considering IOL 39-41wga -GBS pending Gestation period, 36 weeks Ordered: Group B Strep Culture MA/Nurse Collect Extracted from:Title: 32 weeks OB Visit Note Author: MEMO AGUERO PA Date: 01/14/20 1. Gestation period, 32 weeks 2 7 Years y o : 2 Para: 1 Para Premature: 0 Para Full Term: 1 Para Abortions: 0 Living Children History: 1 Ectopic Pregnancies History: 0 Spontaneous Abortions Hx: 0 Induced Abortions History: 0 Multiple Births History: 0 @ 36w6d b y L MP with uncomplicated -Normal FHTs and fundal height today - NOB labs WNL, no f/u indicated - CF n egative, low risk - SIS negative, l ow risk - Rh positive, rhogam not indicated - EPDS is normal, no follow-up required - 20 wk survey u/s WNL, but limited eval of outflow tracts, f/u US - normal outflow tracts -Discussed bleeding/cramping, PTL, PIH p recautions -FKC known to pt -HBA i nfo received -varicella and rubella immune -flu vaccine a nd Tdap received -3rd tri labs WNL except for failed 1 hr gtt, 3 hr gtt w ith one abnormal one borderline, not GDM but encouraged healthy eating/exercise habits -Plans to BF, has pump -Mirena IUD as pp contraception -F/u at 36wks and PRN 2. N ormal in multigravida 3. RLP, intermittent belly band given to pt Addendum by MEMO AGUERO PA on January 14, 2020 16:11:45 PDT No indicators of p ossible COVID 19 including: No recent travel, contacts or symptoms. Current Covid 19 recommendations reviewed. Extracted from:Title: IMMUNIZATION-TDaP Author: MIKAYLA GRIFFIN Date: 12/17/19 Adult Immunization Screening Questionnaire 1. Are you sick today? (NO) 2. Do you have allergies to medications, food, a vaccine component, or latex? (NO) 3. Have you ever had a serious reaction after receiving a vaccination? (NO) 4. Do you have a long-term health problem with heart disease, lung disease, asthma, kidney disease, metabolic disease (e.g. diabetes), anemia, or other blood disorder? Are you on long-term aspirin therapy? (NO) 5. Do you have cancer, leukemia, HIV/AIDS, or any other immune system problem? (NO) 6. In the past 3 months, have you taken medications that weaken your immune system, such as cortisone, prednisone, other steroids, or anticancer drugs, or have you had radiation treatments? (NO) 7. Have you had a seizure or a brain or other nervous system problem? (NO) 8. During or in the past year, have you received a transfusion of blood or blood products, or been given immune (gamma) globulin or an antiviral drug? (NO) 9. For women: Are you or is there a chance you could become during the next month? (YES) Have you received any vaccinations in the past 4 weeks? (NO) Patient in clinic for immunizations. Vaccine information reviewed with patient and VIS was given. Medications were reviewed and allergies verified. No ASE to vaccine noted prior to patient leaving clinic. Patient was given GIVEN BY: Maria A ZUÑIGA Vaccine Name: T dap (Boostrix) Dosage: 0 .5 m l LOT #:([id number] ? Expiration Date: ( 04/15/2021) Location: ( LEFT) d eltoid Route: IM VIS: 11/01/2014 Extracted from:Title: OB 28+6 Visit Note Author: EVELIN ACOSTA Date: 12/17/19 1. P regnant 29 Years y o G ravida: 2 P alley: 1 P alley Premature: 0 P alley Full Term: 1 P alley Abortions: 0 L iving Children History: 1 E ctopic Pregnancies History: 0 S pontaneous Abortions Hx: 0 I nduced Abortions History: 0 M ultiple Births History: 0 @ 16w5d b y L MP with uncomplicated - screening: S IS2 n egative, low risk -20 wk survey u/s WNL, but limited eval of outflow tracts, f/u US with normal view of outflow tracts -Discussed bleeding/cramping, PTL, PIH p recautions -varicella and rubella immune -flu vaccine received, advised Tdap today -3rd tri labs - failed 1hr, 3hr with one abnormal one borderline, not GDM but encouraged healthy eating/exercise habits -HBA handout given today (no classes 2/2 Covid-19) and explained how to get breast pump -F/u at 32wk Ordered: [id number] - Clinic Est Level 3 Subsequent Care Visit [id number] Extracted from:Title: Toe pain Author: AURY NUNN Date: 11/09/19 1. C andrea Gibson ocalized cellulitis without drainable abscess at base of left great toe, recommend hot water soaks for 15-20 minutes to encourage drainage, may apply topical antibacterial when draining, should f/u if noting spreading redness, increased toe pain despite attempts to drain. Orders: mupirocin topical, 1 appl(s), Topical, TID, # 22 g, 0 total refill(s), Acute, [facility] [No refills remaining] [id number] - Clinic Est Level 3 Extracted from:Title: 22 weeks OB Visit Note Author: MEMO AGUERO PA Date: 11/05/19 Gestation period, 22 weeks 1 . G estation period, 16 weeks 29 Years y o G ravida: 2 P alley: 1 P alley Premature: 0 P alley Full Term: 1 P alley Abortions: 0 L iving Children History: 1 E ctopic Pregnancies History: 0 S pontaneous Abortions Hx: 0 I nduced Abortions History: 0 M ultiple Births History: 0 @ 16w5d b y L MP with uncomplicated -Reviewed screening: S IS2 n egative, low risk -20 wk survey u/s WNL, but limited eval of outflow tracts, ordered f/u US -Discussed bleeding/cramping, PTL, PIH p recautions -varicella and rubella immune -flu vaccine advised, Tdap when appropriate -SIS screening neg, low risk -3rd tri labs ordered between 24-28 weeks -F/u at 28wk 2. N ormal in multigravida discussed making arrangements for care for 5 y/o during delivery Ordered: *Glucose Level 1 Hour CBC w/ Diff RPR [id number] Urinalysis with Culture if Indicated Urine Culture Extracted from:Title: Skin and allergy concerns Author: AURY NUNN Date: 11/01/19 1. R matthew M ild dermatitis noted, will trial course of topical steroid, advised to short course of treatment limited to area of rash on back. F/u if not improving. P t in agreement w ith plan 2. A llergic rhinitis A dvised on use of anthistamine for sinus congestion. 3. D andruff D iscussed use of OTC Selsun blue if current regimen does not maintain effectiveness. Orders: loratadine, 1 tab(s), Oral, Daily, PRN allergy symptoms, # 90 tab(s), 3 total refill(s), Maintenance, [facility] (Rx[facility] [Not filled] triamcinolone topical, 1 appl(s), Topical, BID, apply a thin film to affected area, X 14 days, # 15 g, 0 total refill(s), Acute, [facility] dispense (Rx) [Not filled] [id number] - Clinic Est Level 3 Extracted from:Title: 16w5d OB Visit Note Author: CHANDLER YOON Date: 09/23/19 1. G estation period, 16 weeks 2 9 Years y o : 2 Para: 1 Para Premature: 0 Para Full Term: 1 Para Abortions: 0 Living Children History: 1 Ectopic Pregnancies History: 0 Spontaneous Abortions Hx: 0 Induced Abortions History: 0 Multiple Births History: 0 @ 16w5d by Arthur MP withuncomplicated -Reviewed screening: SIS2 today -Ordered 20 wk survey u/s -Discussed bleeding/cramping precautions -F/u at 22wk - Discussed use of probiotics, limiting sugar intake, increasing complex fiber to improve gut microbiome that will decrease the risk of bacterial vaginosis overgrowth. F/u if new symptoms and consider further testing. Ordered: multivitamin, , 1 tab(s), Oral, Daily, # 90 tab(s), 0 total refill(s), Maintenance, [facility] (Rx) [Not filled] Serum Integrated 2 [id number] OB 2nd/3rd Trimester Survey 2. N ormal in multigravida Ordered: multivitamin, , 1 tab(s), Oral, Daily, # 90 tab(s), 0 total refill(s), Maintenance, [facility] dispense (Rx) [Not filled] Orders: Subsequent Care Visit [id number] Chandler Yoon MD, R[place], [facility], Family Medicine Physician / [employer] Extracted from:Title: Office Clinic Note- Blepharitis Author: MILY PRINCE Date: 09/21/19 1. B lepharitis of left eyelid P t has swelling of the left upper eyelid with slight excoriation likely from scratching, there is erythema present and no drainage the conjunctiva is normal. Will treat for blepharitis. recommend warm compresses and clean with baby shampoo and no contacts till done with treatment. Pt is 16 weeks and has follow up on for yeast infection that was treated with diflucan by PCM. Ordered: azithromycin, see instructions, take 2 tablets today then 1 tablet daily for 4 days, # 6 tab(s), 0 total refill(s), Acute, 09/27/2019, [facility] pharmacy dispense (Rx) [No refills remaining] erythromycin ophthalmic, 1 appl(s), Eye-Both, QID, # 3.5 g, 0 total refill(s), Acute, [facility] pharmacy dispense (Rx) [No refills remaining] Orders: Office Visit Level 3 Est [id number] Extracted from:Title: Ambulatory Patient Education Author: MILY PRINCE Date: 09/21/19 Patient Education Materials Follows: Blepharitis Blepharitis is redness, soreness, and swelling (inflammation) of one or both eyelids. It may be caused by an allergic reaction or a bacterial infection. Blepharitis may also be associated with reddened, scaly skin (seborrhea) of the scalp and eyebrows. While you sleep, eye discharge may cause your eyelashes to stick together. Your eyelids may itch, burn, swell, and may lose their lashes. These will grow back. Your eyes may become sensitive. Blepharitis may recur and need repeated treatment. If this is the case, you may require further evaluation by an regulatory law specialist (commercial driver's license driver). HOME CARE INSTRUCTIONS Keep your hands clean. Use a clean towel each time you dry your eyelids. Do not use this towel to clean other areas. Do not share a towel or makeup with anyone. Wash your eyelids with warm water or warm water mixed with a small amount of baby shampoo. Do this twice a day or as often as needed. Wash your face and eyebrows at least once a day. Use warm compresses 2 times a day for 10 minutes at a time, or as directed by your caregiver. Apply antibiotic ointment as directed by your caregiver. Avoid rubbing your eyes. Avoid wearing makeup until you get better. Follow up with your caregiver as directed. SEEK IMMEDIATE MEDICAL CARE IF: You have pain, redness, or swelling that gets worse or spreads to other parts of your face. Your vision changes, or you have pain when looking at lights or moving objects. You have a fever. Your symptoms continue for longer than 2 to 4 days or become worse. MAKE SURE YOU: Understand these instructions. Will watch your condition. Will get help right away if you are not doing well or get worse. Document Released: 08/22/2001 Document Revised: 11/16/2012 Document Reviewed: 10/02/2011 ExitCare Patient Information 2 [employer]. This information is not intended to replace advice given to you by your health care provider. Make sure you discuss any questions you have with your health care provider. Extracted from:Title: Immunizations Author: HAROLDO SIMON Date: 08/10/19 influenza virus vaccine, inactivated: 0.5 mL (08/10/19 13:46:00) Immunization history reviewed for immunization status, allergy status verified during this encounter. Screening form reviewed, no contraindications to vaccine found, patient provided with homecare instructions, patient verbalized understanding of instructions. Time out performed, patient tolerated procedure well, patient advised to wait 15 minutes for observation, no adverse reactions were reported and patient left the clinic in stable condition. Extracted from:Title: OB Visit Note Author: MINDY ETIENNE Date: 08/10/19 1. N ausea present U nisom q day 2. P regnant - Labs normal - Discussed bleeding precautions in early and to f/u in the ED for any bleeding - Recommend f/u at 16weeks - Discussed counseling on: -the use of seat belts and air bags -recommended limiting fish consumption to <12 ouces/week; no uncooked meat; no unpasteurized dairy products; thoroughly washing fruits and vegetables -recommended limiting caffeine to 200 mg/day -appropriate weight gain during : * 28-40 lbs for underweight women (BMI <18.5) * 25-35 lbs for normal weight women (BMI 18.5-24.9) * 15-25 lbs for overweight women (BMI 25-29.9) *11-20 lbs for obese women (BMI >29.9) -No alcohol, tobacco, illicit drugs -Infection precautions - recommend influenza vaccine, avoid contact with rodents, be careful around animals; toxoplasmosis, CMV, listeria, and foodborne infections -Discussed and recommended to continue with exercise - moderate exercise 30 minutes/day at least 3-4 days per week; remember to hydrate well during exercise -Discussed sexual activity: OK in the absence of bleeding or complication -Discussed travel - increased risk of DVT with prolonged sitting; infectious diseases in foreign countries -Discussed medication use - Tylenol for pain, fever, and headache; avoid NSAIDs after 28 weeks. -Discussed baseline defects - 2% baseline -Discussed bleeding and miscarriage precautions -Discussed Screening: Maternal Serum Analyte Screening: We discussed that this test is optional. It is a screening test. The test is not diagnostic. The test is designed to screen for Down Syndrome, Trisomy 18 and open neural tube defects. I offered Integrated Screen (1st trimester serum AZEB-A, ultrasound for nuchal translucency, and 2nd serum HCG, AFP, inhibin-A, and unconjugated estriol) vs. Serum Intergrated screen (all the serum test without the nuchal translucency); the screening is designed to screen for Down syndrome (88-92%), neural tube defects (65-80%) - such as spina bifida and anencephaly, and trisomy 18 (90%). If the test shows an elevated risk, further testing would be offered (Comprehensive ultrasound and possible amniocentesis). Chromosome abnormalities cannot be diagnosed by maternal serum screening or ultrasound. Amniocentesis may be necessary to confirm the diagnosis. There are also false negative results meaning that the test cannot completely rule out Down syndrome, Trisomy 18 or an open neural tube defect. If elected, first trimester screen (serum screening +/- NT) is done between 10- 13.9 weeks; then second trimester serum screening is done between 15-21.9 weeks. If she missed the screening window for the first trimester, then QUAD screen can be ordered between 15-22.9 weeks. - Patient desires testing SIS #1 ordered -BF infant Contraception: ?? - F/u in 6 weeks or prn Ordered: Serum Integrated 1 [id number] Extracted from:Title: Dating US OB Visit Note Author: MEMO AGUERO PA Date: 07/26/19 8 weeks gestation of 29 y /o currently at 8+2 wga confirmed by US. EDC date 03/04/20 by LMP. ROS neg other than continuous N. Add vit b6 tid per orders. Recent UA neg. + FCA 1 69 bpm. CF screen negative. Aneuploidy screening to be offered at [facility] appt. F/U at [facility] as scheduled. SAB precautions. Orders: pyridoxine, See Instructions, 1/2 tab PO TID for Nausea, # 60 tab(s), 0 total refill(s), Acute, [facility] pharmacy dispense (Rx) [No refills remaining] Office Visit Level 3 Est [id number] Transvaginal Us,Obstetric 13716 04/28/2025 0028A-[facility] Assessment and Plan Extracted from:Title : Office Clinic Note Author: REBECA BAZAN Date: 04/28/20 1. T inea versicolor R x for topical steroid; has not responded to antifungal so uncertain diagnosis. Referring to dermatology for further evaluation. Ordered: triamcinolone topical, 1 appl(s), Topical, BID, X 14 days, # 80 g, 0 total refill(s), Acute, Route to [facility] [No refills remaining] [id number] [facility] Est Level 4 Medical Referral Request, = 04/28/2020, Routine, Dermatology, unknown pruritic rash, Evaluate and Treat, Future Order, Appoint to [facility], [id number], Tinea versicolor 2. S kin tag Risks and benefits of procedure discussed with patient, who w ished to proceed with removal of acrochordon. Area cleaned thoroughly with alcohol and Betadine. E xcision was performed with sharp scissors. Pressure was applied, and hemostasis was achieved via silver nitrate. Bandage was applied and post-procedural care was described to patient, who verbalized understanding. EBL: <3 mL Pre-procedural pain: 0 Post-procedural pain: 0 Ordered: [id number] - [facility] Est Level 4 Excision Benign Lesion Scalp Neck Hand Feet .6-1.0cm [id number] All questions answered and appropriate patient education provided to patient/family. Return precautions, if relevant, were discussed. P atient/family instructed to use the [employer] Portal for patient handouts; appropriate handouts added P ortions of the note completed through use of Dragon Dictate; if errors are detected please ask for clarification. Extracted from:Title: [facility] note-Rash Author: HUGO CASILLAS Date: 04/14/20 1. T inea corporis p ossible fungal etiology vs eczema. Discussed these possible diagnoses with patient. Trial of clotrimazole prescribed. Recommend return for further evaluation if not improving after 1-2 weeks of use. Also discussed emollient treatment for possible eczema. Ordered: clotrimazole topical, 1 appl(s), Topical, BID, # 28 g, 1 total refill(s), Acute, Route to [facility] [[facility] Rx: #[id number] x 09/08 refills remaining, last filled 04/14/20] Extracted from:Title: Ambulatory Patient Education Author: HUGO CASILLAS Date: 04/14/20 Patient Education Materials Follows:Disease Body Ringworm Body ringworm is an infection of the skin that often causes a ring-shaped rash. Body ringworm is also called tinea corporis. Body ringworm can affect any part of your skin. This condition is easily spread from person to person (is very contagious). What are the causes? This condition is caused by fungi called dermatophytes. The condition develops when these fungi grow out of control on the skin. You can get this condition if you touch a person or animal that has it. You can also get it if you share any items with an infected person or pet. These include: Clothing, bedding, and towels. Brushes or smiley. Gym equipment. Any other object that has the fungus on it. What increases the risk? You are more likely to develop this condition if you: Play sports that involve close physical contact, such as wrestling. Sweat a lot. Live in areas that are hot and humid. Use public showers. Have a weakened immune system. What are the signs or symptoms? Symptoms of this condition include: Itchy, raised red spots and bumps. Red scaly patches. A ring-shaped rash. The rash may have: A clear center. Scales or red bumps at its center. Redness near its borders. Dry and scaly skin on or around it. How is this diagnosed? This condition can usually be diagnosed with a skin exam. A skin scraping may be taken from the affected area and examined under a microscope to see if the fungus is present. How is this treated? This condition may be treated with: An antifungal cream or ointment. An antifungal shampoo. Antifungal medicines. These may be prescribed if your ringworm: Is severe. Keeps coming back. Lasts a long time. Follow these instructions at home: Take cabb-bve-rjlsier and prescription medicines only as told by your health care provider. If you were given an antifungal cream or ointment: Use it as told by your health care provider. Wash the infected area and dry it completely before applying the cream or ointment. If you were given an antifungal shampoo: Use it as told by your health care provider. Leave the shampoo on your body for 3 5 minutes before rinsing. While you have a rash: Wear loose clothing to stop clothes from rubbing and irritating it. Wash or change your bed sheets every night. Disinfect or throw out items that may be infected. Wash clothes and bed sheets in hot water. Wash your hands often with soap and water. If soap and water are not available, use hand optics technical officer. If your pet has the same infection, take your pet to see a surveillance officer for treatment. How is this prevented? Take a bath or shower every day and after every time you work out or play sports. Dry your skin completely after bathing. Wear sandals or shoes in public places and showers. Change your clothes every day. Wash athletic clothes after each use. Do not share personal items with others. Avoid touching red patches of skin on other people. Avoid touching pets that have bald spots. If you touch an animal that has a bald spot, wash your hands. Contact a health care provider if: Your rash continues to spread after 7 days of treatment. Your rash is not gone in 4 weeks. The area around your rash gets red, warm, tender, and swollen. Summary Body ringworm is an infection of the skin that often causes a ring-shaped rash. This condition is easily spread from person to person (is very contagious). This condition may be treated with antifungal cream or ointment, antifungal shampoo, or antifungal medicines. Take gdkw-cuj-enishll and prescription medicines only as told by your health care provider. This information is not intended to replace advice given to you by your health care provider. Make sure you discuss any questions you have with your health care provider. Document Released: 08/22/2001 Document Revised: 04/23/2019 Document Reviewed: 04/23/2019 [employer] Patient Education 2019 [employer] Extracted from:Title: Post OBGYN Office Clinic Note Author: MEMO AGUERO PA Date: 04/10/20 1. P ost 2 10 y/o s/p with uncomplicated PP course. Breast feeding well. No depression. Immunizations UTD. PAP due, completed today, see below. C ounseled about contraception, pt elects Mirena IUD, would like to have placed today, see below. Has a resolving hemorrhoid, no BRBPR, declines tx. WWE in 1 year. 2. B irth control I UD insertion procedure note: Pre Procedure: LMP prior to . N o unprotected intercourse since delivery. Urine HCG negative. PRE-OP DIAGNOSIS: desired long active reversible contraception. POST-OP DIAGNOSIS: Same PROCEDURE: IUD insertion [x ] Mirena [ ] Shanna [ ] Paragard Performing Provider: FARNAZ Vazquez Lot #: [id number] Expiration: JUL 2022 UNIVERSAL PROTOCOL/Timeout Procedure: The following were verified and correct: [X] Patient name and [X] Procedure [X] Procedure consent signed and witnessed [X] Correct equipment available [X] Specimen labels verified by patient [X] Time out completed by provider and evaluation assistant. Chaperoned and Assisted by:Flower PROCEDURE: A bimanual exam was done to determine the position of the uterus. A speculum was placed. Sterile technique was maintained throughout the procedure. A GC swab was obtained. The cervix was prepped with betadine. A single tooth tenaculum was [x_] used [_] not used. The uterus was sounded to 8 .5 cm. The IUD applicator was adjusted to the appropriate depth and the IUD was inserted into the uterus without complications and tolerated well by the patient. The strings were trimmed to 4 cm. The tenaculum sites were hemostatic after applying direct pressure. EBL: < 1ml Pain prior to placement 0/10 Pain after placement 0/10 Uncomplicated M slava I UD insertion. L eft clinic with no vasovagal sxs. E R for fever or severe abd pain. P ost IUD instructions discussed. N SAIDS as directed PRN comfort. I UD reminder card given to pt. 5 year removal. Ordered: Beta HCG Qualitative, Urine 3. C ancer cervix - screening done P AP with HPV reflex today. No hx of abnormal PAPs. F/U per ASCCP guidelines. Extracted from:Title: Summary Document Author: SYSTEM, SYSTEM Maria De Jesus Pretty Managed Acct Date: 04/07/20 Odessa Nagel : 1990 Age: 30 Years Odessa Nagle DOB: [birth year] Summary (Date of Report: 04/07/20) G 2 P 1 (1,0,0,1) Gestation: -- LMP: 05/29/2019 (from pt. history) MIGUEL: 03/04/2020 MIGUEL/EGA Method: Last Menstrual Period EGA: 44 weeks 5 days Odessa Nagel : [birth year] Antepartum Note Date: 07/14/19 15:01 (6 weeks) By: HERIBERTO ASHLEY LPN No OHIpt contact # [phone] screen neg Odessa Nagel : [birth year] Problems (Active Problems Only) (SNOMED CT: [id number], Onset: 05/29/19) Dandruff (SNOMED CT: 3666436017, Onset: --) Allergic rhinitis (SNOMED CT: 733558952, Onset: --) Odessa Nagel : [birth year] Risk Factors and Genetic Screening Risk Factors (Current ) Risk Factors: -- Risk Factors Comments: -- Ethnic Screening Baby's father: Self, Baby's father: Genetic Disorders Screening No genetic disorders have been recorded. Odessa Nagel : [birth year] Gestational Age (EGA) and MIGUEL * Note: EGA calculated as of 04/07/2020 MIGUEL: 03/04/2020 EGA*: 44 weeks 5 days Type: Authoritative Method Date: 05/29/2019 Method: Last Menstrual Period (05/29/2019) Confirmation: Confirmed Description: Normal Amount/Duration Comments: -- Entered by: HERIBERTO ASHLEY LPN on 07/14/2019 Other MIGUEL Calculations for this : No additional MIGUEL calculations have been recorded for this Odessa Nagel : [birth year] Measurements Pre- Weight: 74.8 kg 02/24/20 (38 weeks) Recent Weight Measured: 88.6 kg (+14) 02/24/20 (38 weeks) Height/Length Measured: 165 cm 02/24/20 (38 weeks) Body Mass Index Measured: 32.54 kg/m2 02/24/20 (38 weeks) Odessa Nagel : [birth year] Exam and Notes Date JOSE Diallo PTL S/S Cervix BP Weight Urine Baby cm Dil Eff(%) Sta mmHg lbs kg Gluc Prot FHR Activity Fet Pres 02/24/20 38w5d 39 -- -- -- -- 118/72 *195... -- -- Baby A = Present -- 02/18/20 37w6d 38 -- 2 70% -2 115/69 *194... -- -- Baby A = Present -- 02/10/20 36w5d 37 -- -- -- -- 126/78 *195... -- -- Baby A = Present -- 01/14/20 32w6d 33 -- -- -- -- 115/60 *185... -- -- Baby A = Present -- 12/17/19 28w5d 28 None -- -- -- 120/68 *178... -- -- Baby A = Present -- 11/05/19 22w6d 22 -- -- -- -- 114/72 *179... -- -- -- -- -- 11/01/19 22w2d -- -- -- -- -- 120/69 *179... -- -- -- -- -- 09/23/19 16w5d -- -- -- -- -- 132/76 *172... -- -- Baby A = Present -- 09/21/19 16w3d -- -- -- -- -- 125/81 *174... -- -- -- -- -- 08/10/19 10w3d -- -- -- -- -- 122/68 *169... -- -- -- -- -- 07/26/19 8w2d -- -- -- -- -- 122/67 *169... -- -- -- -- -- 07/14/19 6w4d -- -- -- -- -- 122/67 *169... -- -- -- -- -- 06/28/19 4w2d -- -- -- -- -- 119/79 *169... -- -- -- -- -- * Weight 02/24/2020 195.363(lbs) 88.6(kg) 02/18/2020 194.702(lbs) 88.3(kg) 02/10/2020 195.804(lbs) 88.8(kg) 01/14/2020 185.220(lbs) 84(kg) 12/17/2019 178.605(lbs) 81(kg) 11/05/2019 179.046(lbs) 81.2(kg) 11/01/2019 179.487(lbs) 81.4(kg) 09/23/2019 172.210(lbs) 78.1(kg) 09/21/2019 174.857(lbs) 79.3(kg) 08/10/2019 169.565(lbs) 76.9(kg) 07/26/2019 169.124(lbs) 76.7(kg) 07/14/2019 169.785(lbs) 77(kg) 06/28/2019 169.785(lbs) 77(kg) Odessa Nagel : [birth year] Physical Exams Physical Exam Respiratory SpO2: 99 % (02/24/20) Oxygen Flow Rate: 10 L/min (01/14/20) Odessa Nagel : [birth year] Blood Types and Anti-D Immune Globulin Blood Type and Screen Mother ABO/Rh: -- Mother Antibody Screen: -- Father of Baby ABO/Rh: -- Father of Baby Antibody Screen: -- Anti-D Immune Globulin Rho(D) Initial Status: -- Rho(D) 28 Week Status: -- Rho(D) Dates Given: -- Odessa Nagel : [birth year] Tests and Lab Results Results ending with 'TR' have been keyed in by the practice or interpreted manually. Result Date: Estimated weeks post onset will display next to actual result date. Test Result Date Ref Range Beta hCG, Urine Qual (A) Positive 07/02/19 (4 weeks) Negative UA Color Yellow 07/14/19 (6 weeks) Yellow UA Ketones Trace 07/14/19 (6 weeks) Negative UA Micro Ind? Not Indicated 07/14/19 (6 weeks) Not Indicated UA Leuk Esterase Negative 07/14/19 (6 weeks) Negative UA Bili Negative 07/14/19 (6 weeks) Negative UA Protein (N) Trace 07/14/19 (6 weeks) Negative UA Blood Negative 07/14/19 (6 weeks) Negative UA Glucose Negative 07/14/19 (6 weeks) Negative UA Spec [place] (A) >=1.030 07/14/19 (6 weeks) UA pH 6.5 07/14/19 (6 weeks) UA Urobilinogen 1.0 07/14/19 (6 weeks) 0.2 UA Appear Clear 07/14/19 (6 weeks) Clear UA Nitrite Negative 07/14/19 (6 weeks) Negative CFPS Testing Consent.KS Yes 07/14/19 (6 weeks) Cystic Fibrosis Scrn.KS (N) None of 39 Common Mutations, see below. 07/14/19 (6 weeks) CFPS Pt. Race-Father.KS Black 07/14/19 (6 weeks) CFPS Provider Contact.KS (N) [phone] 07/14/19 (6 weeks) CFPS Family Hx?.KS No 07/14/19 (6 weeks) CFPS Ind. for Test.KS Scrn 07/14/19 (6 weeks) CFPS Pt. Race-Mother Black 07/14/19 (6 weeks) CFPS Pt. Symptoms.KS (N) none 07/14/19 (6 weeks) Hemoglobin (L) 12.4 g/dL 07/14/19 (6 weeks) (14.0 - 18.0) MCHC 34.8 g/dL 07/14/19 (6 weeks) (32.0 - 36.0) MCH 29.6 pg 07/14/19 (6 weeks) (27.0 - 36.0) RDW 11.9 % 07/14/19 (6 weeks) (10.9 - 15.1) WBC 6.76 10^3/uL 07/14/19 (6 weeks) (4.60 - 11.00) MCV 85.0 fL 07/14/19 (6 weeks) (82.0 - 99.0) Hematocrit (L) 35.6 g/dL 07/14/19 (6 weeks) (36.0 - 46.0) MPV 9.3 fL 07/14/19 (6 weeks) (7.0 - 11.0) RBC 4.19 10^6/uL 07/14/19 (6 weeks) (3.80 - 5.20) Platelets (H) 404 10^3/uL 07/14/19 (6 weeks) (130 - 400) Neutrophil % Auto (L) 53.7 % 07/14/19 (6 weeks) (54.0 - 77.0) Monocyte % Auto 8.6 % 07/14/19 (6 weeks) (0.0 - 15.0) Neutro Absolute 3.63 10^3/uL 07/14/19 (6 weeks) (2.00 - 7.00) Eosinophil % Auto 1.2 % 07/14/19 (6 weeks) (0.0 - 4.0) Lymphocyte % Auto 35.7 % 07/14/19 (6 weeks) (15.0 - 41.0) [place] Absolute 0.58 10^3/uL 07/14/19 (6 weeks) (0.20 - 0.90) Baso Absolute 0.05 10^3/uL 07/14/19 (6 weeks) (0.00 - 0.20) Basophil % Auto 0.7 % 07/14/19 (6 weeks) (0.0 - 2.0) Eos Absolute 0.08 10^3/uL 07/14/19 (6 weeks) (0.00 - 0.70) Lymph Absolute 2.41 10^3/uL 07/14/19 (6 weeks) (1.00 - 4.50) Imm. Granulocyte Absolute (N) <0.04 07/14/19 (6 weeks) Imm. Granulocyte % 0.1 % 07/14/19 (6 weeks) (0.0 - 2.0) OP ABSC: Negative 07/14/19 (6 weeks) OP ABORh (U) B POS 07/14/19 (6 weeks) ABORh Retype (U) B POS 07/14/19 (6 weeks) Hgb Variant LC (N) 0.0 % 07/14/19 (6 weeks) 0.0 Hgb S LC (N) 0.0 % 07/14/19 (6 weeks) 0.0 Hgb A LC (N) 97.4 % 07/14/19 (6 weeks) 96.4-98.8 Hgb Solubility LC (N) Negative 07/14/19 (6 weeks) Negative Hgb C LC (N) 0.0 % 07/14/19 (6 weeks) 0.0 Hgb Interpretation LC (N) Comment 07/14/19 (6 weeks) Hgb A2 LC (N) 2.6 % 07/14/19 (6 weeks) 1.8-3.2 Hgb F LC (N) 0.0 % 07/14/19 (6 weeks) 0.0-2.0 Varicella Virus IgG.EPI (N) POSITIVE 07/14/19 (6 weeks) Rubella Ab Screen (A) Pos 07/14/19 (6 weeks) Neg Syphilis Screen Non-Reactive 07/14/19 (6 weeks) Non-Reactive HIV-1/O/2.EPI (N) NON-REACTIVE 07/14/19 (6 weeks) NON-REACTIVE Chlamydia Scrn Neg 07/14/19 (6 weeks) Neg GC Scrn Neg 07/14/19 (6 weeks) Neg Test Result Date Ref Range Ser Int-1 Submit Part 2 Sample Using LC (N) Date: 08/10/19 (10 weeks) Ser Int-1 Number of Fetuses LC (N) 1 08/10/19 (10 weeks) Ser Int-1 Race LC (N) Black 08/10/19 (10 weeks) Ser Int-1 Gest. Age Based on LC (N) MIGUEL 08/10/19 (10 weeks) Ser Int-1 Gestational Age LC (N) 10.4 weeks 08/10/19 (10 weeks) Ser Int-1 Maternal Age at MIGUEL LC (N) 28.6 years 08/10/19 (10 weeks) AZEB-A Value LC (N) 305.0 ng/mL 08/10/19 (10 weeks) Ser Int-1 Weight LC (N) 169 lb 08/10/19 (10 weeks) Ser Int-1 Test Results: LC (N) Comment 08/10/19 (10 weeks) Ser Int-1 Comments LC (N) Comment 08/10/19 (10 weeks) Ser Int-1 Results LC (N) Report 08/10/19 (10 weeks) Ser Int-1 Note LC (N) Comment 08/10/19 (10 weeks) Age of Egg Donor (##).LC (N) 29 08/10/19 (10 weeks) Donor Egg.LC N 08/10/19 (10 weeks) MIGUEL/EDC Date (YYYYMMDD).LC (N) [id number] 08/10/19 (10 weeks) FHX NTD.LC N 08/10/19 (10 weeks) GA Calculation Method. LMP 08/10/19 (10 weeks) GA Date of Calc (YYYYMMDD).LC (N) [id number] 08/10/19 (10 weeks) Gest Age (Decimal, ##.#).LC (N) 10.3 08/10/19 (10 weeks) Insulin Dependent. N 08/10/19 (10 weeks) Nbr of Fetuses (#).LC (N) 1 08/10/19 (10 weeks) Other Indications. N 08/10/19 (10 weeks) Previously Elevated AFP. N 08/10/19 (10 weeks) Prior Down Syndrome/ONDT Screen. N 08/10/19 (10 weeks) Prior First Trimester Testing. N 08/10/19 (10 weeks) Prior With Down Syndrome. N 08/10/19 (10 weeks) AFP Value LC (N) 42.8 ng/mL 09/23/19 (16 weeks) Prior With Down Syndrome. N 09/23/19 (16 weeks) Ser Int-2 Gest. Age Based on LC (N) MIGUEL 09/23/19 (16 weeks) TERENCE Value LC (N) 142.0 pg/mL 09/23/19 (16 weeks) Ser Int-2 Test Results: LC (N) *Screen Negative* 09/23/19 (16 weeks) Ser Int-2 Comments: LC (N) Comment 09/23/19 (16 weeks) Ser Int-2 OSB Interpretation LC (N) Comment 09/23/19 (16 weeks) Ser Int-2 AZEB-A MoM LC (N) 0.77 09/23/19 (16 weeks) Ser Int-2 Number of Fetuses LC (N) 1 09/23/19 (16 weeks) Ser Int-2 Collected On (N) Date: 09/23/19 (16 weeks) Ser Int-2 FIRST TRIMESTER SAMPLE LC (N) Comment 09/23/19 (16 weeks) Ser Int-2 Trisomy 18 Interpretation LC (N) Comment 09/23/19 (16 weeks) uE3 Value LC (N) 0.83 ng/mL 09/23/19 (16 weeks) Ser Int-2 Maternal Age at MIGUEL LC (N) 28.4 years 09/23/19 (16 weeks) Ser Int-2 SECOND TRIMESTER SAMPLE LC (N) Comment 09/23/19 (16 weeks) Ser Int-2 Race LC (N) Black 09/23/19 (16 weeks) Ser Int-2 TERENCE MoM LC (N) 0.94 09/23/19 (16 weeks) Ser Int-2 Weight (N) 169 lb 09/23/19 (16 weeks) Ser Int-2 Insulin Dep Diabetes LC (N) No 09/23/19 (16 weeks) Ser Int-2 Down Syndrome LC (N) Age Risk: 09/23/19 (16 weeks) Ser Int-2 Results LC (N) Report 09/23/19 (16 weeks) AZEB-A Value LC (N) 305.0 ng/mL 09/23/19 (16 weeks) Ser Int-2 Down Syndrome Interp LC (N) Comment 09/23/19 (16 weeks) Ser Int-2 Trisomy 18 (N) Screening Risk: 09/23/19 (16 weeks) hCG Value LC (N) 28.8 IU/mL 09/23/19 (16 weeks) Ser Int-2 Weight LC (N) 172 lb 09/23/19 (16 weeks) Ser Int-2 Note: LC (N) Comment 09/23/19 (16 weeks) Ser Int-2 hCG MoM LC (N) 1.01 09/23/19 (16 weeks) Ser Int-2 uE3 MoM LC (N) 0.85 09/23/19 (16 weeks) Ser Int-2 Gestational Age (N) 16.7 weeks 09/23/19 (16 weeks) Ser Int-2 Collected On LC (N) Date: 09/23/19 (16 weeks) Ser Int-2 AFP MoM LC (N) 1.24 09/23/19 (16 weeks) Ser Int-2 Trisomy 18 LC (N) Age Risk: 09/23/19 (16 weeks) Ser Int-2 Down Syndrome (N) Screening Risk: 09/23/19 (16 weeks) Ser Int-2 Open Spina Bifida LC (N) Screening Risk: 09/23/19 (16 weeks) Age of Egg Donor (##).LC (N) 29 09/23/19 (16 weeks) Donor Egg.LC N 09/23/19 (16 weeks) FHX NTD.LC N 09/23/19 (16 weeks) GA Calculation Method. MIGUEL/EDC 09/23/19 (16 weeks) GA Date of Calc (YYYYMMDD). (N) [id number]/23/19 (16 weeks) Gest Age (Decimal, ##.#). (N) 16.5 09/23/19 (16 weeks) Insulin Dependent. N 09/23/19 (16 weeks) Nbr of Fetuses (#). (N) 1 09/23/19 (16 weeks) Other Indications. N 09/23/19 (16 weeks) Previously Elevated AFP. N 09/23/19 (16 weeks) Prior Down Syndrome/ONDT Screen. N 09/23/19 (16 weeks) Prior First Trimester Testing. N 09/23/19 (16 weeks) Ser Int-2 Gestational Age LC (N) 10.4 weeks 09/23/19 (16 weeks) UA Leuk Esterase Negative 11/12/19 (23 weeks) Negative UA Nitrite Negative 11/12/19 (23 weeks) Negative UA Color Yellow 11/12/19 (23 weeks) Yellow UA Protein Negative 11/12/19 (23 weeks) Negative UA Blood Negative 11/12/19 (23 weeks) Negative UA Glucose Negative 11/12/19 (23 weeks) Negative UA Urobilinogen 0.2 11/12/19 (23 weeks) 0.2 UA Spec [place] 1.025 11/12/19 (23 weeks) UA pH 6.5 11/12/19 (23 weeks) UA Micro Ind? Not Indicated 11/12/19 (23 weeks) Not Indicated UA Ketones Negative 11/12/19 (23 weeks) Negative UA Bili Negative 11/12/19 (23 weeks) Negative UA Appear Clear 11/12/19 (23 weeks) Clear MPV 9.3 fL 11/12/19 (23 weeks) (7.0 - 11.0) RBC (L) 3.68 10^6/uL 11/12/19 (23 weeks) (3.80 - 5.20) Hematocrit (L) 32.3 g/dL 11/12/19 (23 weeks) (36.0 - 46.0) MCHC 34.1 g/dL 11/12/19 (23 weeks) (32.0 - 36.0) Differential? Auto 11/12/19 (23 weeks) Hemoglobin (L) 11.0 g/dL 11/12/19 ( weeks) (14.0 - 18.0) WBC 7.07 10^3/uL 11/12/19 ( weeks) (4.60 - 11.00) MCH 29.9 pg 11/12/19 ( weeks) (27.0 - 36.0) MCV 87.8 fL 11/12/19 ( weeks) (82.0 - 99.0) RDW 12.7 % 11/12/19 ( weeks) (10.9 - 15.1) Platelets 276 10^3/uL 11/12/19 ( weeks) (130 - 400) Baso Absolute <0.04 10^3/uL 11/12/19 ( weeks) (0.00 - 0.20) Lymphocyte % Auto 21.9 % 11/12/19 ( weeks) (15.0 - 41.0) Neutro Absolute 4.94 10^3/uL 11/12/19 ( weeks) (2.00 - 7.00) Monocyte % Auto 5.0 % 11/12/19 ( weeks) (0.0 - 15.0) Lymph Absolute 1.55 10^3/uL 11/12/19 ( weeks) (1.00 - 4.50) Eos Absolute 0.07 10^3/uL 11/12/19 ( weeks) (0.00 - 0.70) Basophil % Auto 0.3 % 11/12/19 ( weeks) (0.0 - 2.0) [place] Absolute 0.35 10^3/uL 11/12/19 ( weeks) (0.20 - 0.90) Imm. Granulocyte Absolute (N) 0.14 11/12/19 (23 weeks) Imm. Granulocyte % 2.0 % 11/12/19 ( weeks) (0.0 - 2.0) Neutrophil % Auto 69.8 % 11/12/19 ( weeks) (54.0 - 77.0) Eosinophil % Auto 1.0 % 11/12/19 ( weeks) (0.0 - 4.0) Gluc 1 Hr 154 mg/dL 11/12/19 ( weeks) (65 - 184) HBsAg Screen.LC (N) Negative 11/12/19 (23 weeks) Negative Treponema pallidum Ab.EPI (N) NON-REACTIVE index 11/12/19 (23 weeks) NON-REACTIVE Test Result Date Ref Range Gluc Baseline 91 mg/dL 11/19/19 (24 weeks) (74 - 106) Gluc 2 Hr (H) 162 mg/dL 11/19/19 (24 weeks) (65 - 138) Gluc 3 Hr (H) 138 mg/dL 11/19/19 (24 weeks) (65 - 110) Gluc 1 Hr 148 mg/dL 11/19/19 (24 weeks) (65 - 184) Test Result Date Ref Range Albumin (L) 2.9 g/dL 02/18/20 (37 weeks) (3.4 - 5.0) Protein Total 7.1 g/dL 02/18/20 (37 weeks) (6.4 - 8.2) AGAP (L) 9 mmol/L 02/18/20 (37 weeks) (10 - 20) Creatinine Level 0.62 mg/dL 02/18/20 (37 weeks) (0.55 - 1.02) Glucose Lvl (L) 69.0 mg/dL 02/18/20 (37 weeks) (74.0 - 106.0) ALT 22 U/L 02/18/20 (37 weeks) (12 - 78) CO2 24 mmol/L 02/18/20 (37 weeks) (21 - 32) Bilirubin Total 0.6 mg/dL 02/18/20 (37 weeks) (0.2 - 1.0) Chloride 103 mmol/L 02/18/20 (37 weeks) (98 - 107) Bilirubin Direct 0.12 mg/dL 02/18/20 (37 weeks) (0.00 - 0.20) Potassium Lvl 3.7 mmol/L 02/18/20 (37 weeks) (3.5 - 5.1) AST 18 U/L 02/18/20 (37 weeks) (15 - 37) Alk Phos (H) 222 U/L 02/18/20 (37 weeks) (30 - 120) Sodium 136 mmol/L 02/18/20 (37 weeks) (136 - 145) BUN/Creat Ratio (N) 10 02/18/20 (37 weeks) Calcium 8.9 mg/dL 02/18/20 (37 weeks) (8.5 - 10.1) BUN (L) 6.0 mg/dL 02/18/20 (37 weeks) (7.0 - 18.0) eGFR AA 143 mL/min 02/18/20 (37 weeks) >=60 eGFR Non-AA 124 mL/min 02/18/20 (37 weeks) >=60 Bile Acids Total.LC (N) 3.0 umol/L 02/18/20 (37 weeks) Cholate.LC (N) 0.70 umol/L 02/18/20 (37 weeks) Chenodeoxycholate.LC (N) 0.80 umol/L 02/18/20 (37 weeks) Deoxycholate.LC (N) 1.5 umol/L 02/18/20 (37 weeks) Ursodeoxycholate.LC (N) <0.10 umol/L 02/18/20 (37 weeks) Odessa Nagel : [birth year] Allergies (Active and Proposed Allergies Only) No Known Allergies (Severity: Unknown severity, Onset: Unknown) Odessa Nagel : [birth year] Medications Prescriptions and Home Medications Currently Active or Taking Claritin 10 mg oral tablet SI tab(s), Oral, Daily, PRN: allergy symptoms, 90 tab(s), 3 Refill(s) Ordered: 11/01/19 Provider: AURY NUNN Classic oral tablet SI tab(s), Oral, Daily, 30 tab(s), 0 Refill(s) Ordered: 03/03/20 Provider: MEMO AGUERO PA Colace 100 mg oral capsule SI cap(s), Oral, BID, PRN: constipation, 20 cap(s), 0 Refill(s) Ordered: 03/03/20 Provider: MEMO AGUERO PA loratadine 10 mg tablet SI mg, Oral, Daily, PRN, 90 EA, 3 Refill(s) Ordered: 11/01/19 Provider: AURY NUNN pyridoxine 50 mg tablet SIG: See Rx Instructions, 60 EA, 0 Refill(s) Ordered: 07/26/19 Provider: MEMO AGUERO PA triamcinolone 0.025% cream[15g] SI appl(s), Topical, BID, 15 g, 0 Refill(s) Ordered: 11/01/19 Provider: AURY NUNN Inactive or Suspended (Prescriptions and documented medications since 02/26/19) acetaminophen 325 mg oral tablet SI tab(s), Oral, every 4 hr, PRN: pain or fever, 100 tab(s), 0 Refill(s) Status: Completed Ordered: 03/03/20 Provider: MEMO AGUERO PA acetaminophen 325 mg tablet SI mg, Oral, every 4 hr, PRN, 100 EA, 0 Refill(s) Status: Completed Ordered: 03/03/20 Provider: MEMO AGUERO PA azithromycin 250 mg oral tablet SIG: see instructions, take 2 tablets today then 1 tablet daily for 4 days, 6 tab(s), 0 Refill(s) Status: Completed Ordered: 09/21/19 Provider: MILY PRINCE azithromycin 250 mg tablet (6EA) SIG: See Rx Instructions, 6 EA, 0 Refill(s) Status: Completed Ordered: 09/21/19 Provider: MILY PRINCE Bactroban 2% topical ointment SI appl(s), Topical, TID, 22 g, 0 Refill(s) Status: Completed Ordered: 11/09/19 Provider: AURY NUNN Diflucan 150 mg oral tablet SI tab(s), Oral, As Directed, Once, 1 tab(s), 0 Refill(s) Status: Discontinued Ordered: 09/20/19 Provider: MINDY ETIENNE docusate sodium 100 mg capsule SI mg, Oral, BID, PRN, 20 EA, 0 Refill(s) Status: Completed Ordered: 03/03/20 Provider: MEMO AGUERO PA erythromycin 0.5% Eye-Oint [3.5g] SI appl(s), Eye-Both, QID, 3.5 g, 0 Refill(s) Status: Completed Ordered: 09/21/19 Provider: MILY PRINCE erythromycin 0.5% ophthalmic ointment SI appl(s), Eye-Both, QID, 3.5 g, 0 Refill(s) Status: Completed Ordered: 09/21/19 Provider: MILY PRINCE fluconazole 150 mg tablet SI mg, Oral, As Directed, 1 EA, 0 Refill(s) Status: Discontinued Ordered: 09/20/19 Provider: MINDY ETIENNE ibuprofen 800 mg oral tablet SI tab(s), Oral, every 8 hr, 30 tab(s), 0 Refill(s) Status: Completed Ordered: 03/03/20 Provider: MEMO AGUERO PA ibuprofen 800 mg tablet SI mg, Oral, every 8 hr, 30 EA, 0 Refill(s) Status: Completed Ordered: 03/03/20 Provider: MEMO AGUERO PA mupirocin topical 2% Oin [22g] SI appl(s), Topical, TID, 22 g, 0 Refill(s) Status: Completed Ordered: 11/09/19 Provider: AURY NUNN PNV oral tablet (Historically recorded) SI tab(s), Oral, Daily, 100 tab(s), 3 Refill(s) Status: Discontinued Ordered: 07/14/19 Provider: -- PNV oral tablet SI tab(s), Oral, Daily, 90 tab(s), 0 Refill(s) Status: Discontinued Ordered: 09/23/19 Provider: CHANDLER YOON multivitamins w/Folic Acid 0.8 mg tablet SI.8 mg, Oral, Daily, 100 EA, 0 Refill(s) Status: Completed Ordered: 03/03/20 Provider: MEMO AGUERO PA Prenavite with 0.8 mg Folic Acid tablet SI.8 mg, Oral, Daily, 100 EA, 0 Refill(s) Status: Completed Ordered: 09/23/19 Provider: CHANDLER YOON triamcinolone 0.025% topical cream SI appl(s), Topical, BID, for 14 days, apply a thin film to affected area, 15 g, 0 Refill(s) Status: Completed Ordered: 11/01/19 Provider: AURY NUNN Vitamin B6 50 mg oral tablet SIG: See Instructions, 1/2 tab PO TID for Nausea, 60 tab(s), 0 Refill(s) Status: Completed Ordered: 07/26/19 Provider: MEMO AGUERO PA Medication Administrations In-Office/Hospital (All in-office/hospital administrated medications ordered since 02/26/19) Afluria, influenza vaccine IIV4 [3 yr+] (influenza vaccine IIV4 (Afluria) [3 yr+] 0.5 mL syringe) 0.5 mL, IntraMuscular, Vaccine Status: Completed Ordered: 08/10/19 Provider: GENEVIEVE ALDRIDGE Boostrix (Tdap) (tetanus/diphtheria/pertussis (Boostrix Tdap) 0.5 mL injection) 0.5 mL, IntraMuscular, Once Status: Completed Ordered: 12/17/19 Provider: GENEVIEVE ALDRIDGE Odessa Nagel DOB: [birth year] Immunizations influenza virus vaccine, inactivated 08/10/19 (10 weeks) tetanus, diphtheria, acellular pertussis 12/17/19 (28 weeks) Odessa Nagel DOB: [birth year] Menstrual History Last Recorded Menstrual Period: 05/29/2019 Last Menstrual Period Description: -- Menarche Onset: 14 years Menarche Frequency: -- Menarche Length: -- Date of Menses Prior to LMP: -- On Hormonal Contracept within 2 months of LMP: -- Date of Home Test: -- Comments: -- Odessa Nagel : [birth year] History (1,0,0,1) # 1 Baby 1 Outcome Date: 06/01/2016 Outcome: Live Outcome or Result: Vaginal Gender: Female Gest Age: 39 weeks Wt: 3515 g Hospital: [facility] Labor: 10 hr Child's Name: -- Baby's Father: -- Anesthesia Type: Epidural Labor: No Odessa Nagel : [birth year] Medical History Past Medical History Nausea present (SNOMED CT: ) Onset Age: -- Resolved: -- Family History 33 = Father (OHI) (Name not documented, Alive) Hypertension 32 = Mother (OHI) (Name not documented, Alive) Hypertension 04 = Grandfather or Grandmother (OHI) (Name not documented, Alive) 34 = Other Adult (OHI) (Name not documented, Alive) Diabetes Paternal Grandmother - FH (Name not documented, Alive) Cancer Procedure or Surgical History Tonsillectomy Age: 24 Years Date: 2012 Office or other outpatient visit for the evaluation and management of an established patient, that may not require the presence of a physician or other qualified health hospice care transitions coordinator. Usually, the presenting problem(s) are minimal. Typically, 5 minute Age: -- Date: -- Office or other outpatient visit for the evaluation and management of an established patient, which requires at least 2 of these 3 aggarwal components: A detailed history; A detailed examination; Medical decision making of moderate complexity. Counseling and/o Age: -- Date: -- Office or other outpatient visit for the evaluation and management of an established patient, which requires at least 2 of these 3 aggarwal components: An expanded problem focused history; An expanded problem focused examination; Medical decision making of low Age: -- Date: -- Office or other outpatient visit for the evaluation and management of an established patient, which requires at least 2 of these 3 aggarwal components: An expanded problem focused history; An expanded problem focused examination; Medical decision making of low Age: -- Date: -- Office or other outpatient visit for the evaluation and management of an established patient, which requires at least 2 of these 3 aggarwal components: An expanded problem focused history; An expanded problem focused examination; Medical decision making of low Age: -- Date: -- Office or other outpatient visit for the evaluation and management of an established patient, which requires at least 2 of these 3 aggarwal components: An expanded problem focused history; An expanded problem focused examination; Medical decision making of low Age: -- Date: -- Office or other outpatient visit for the evaluation and management of an established patient, which requires at least 2 of these 3 aggarwal components: An expanded problem focused history; An expanded problem focused examination; Medical decision making of low Age: -- Date: -- Subsequent care visit () [Excludes: patients who are seen for a condition unrelated to or care (eg, an upper respiratory infection; patients seen for consultation only, not for continuing care)] Age: -- Date: -- Subsequent care visit () [Excludes: patients who are seen for a condition unrelated to or care (eg, an upper respiratory infection; patients seen for consultation only, not for continuing care)] Age: -- Date: -- Subsequent care visit () [Excludes: patients who are seen for a condition unrelated to or care (eg, an upper respiratory infection; patients seen for consultation only, not for continuing care)] Age: -- Date: -- Ultrasound, uterus, real time with image documentation, transvaginal Age: -- Date: -- Ultrasound, uterus, real time with image documentation, transvaginal Age: -- Date: -- Weight recorded (PAG) Age: -- Date: -- Weight recorded (PAG) Age: -- Date: -- Odessa Nagel : 89 Social and Psychosocial History Social History Alcohol Denies use Tobacco Smoking tobacco use: Never (less than 100 in lifetime). Domestic Violence Screen Have You Ever Been Emotionally Or Physically Abused by Your Partner: No Have You Been Physically Hurt by Someone Within the Past Year: No Within the Last Year, Has Anyone Forced You to Have Sexual Activity: No Have You Ever Been Emotionally Or Physically Abused by Your Partner: No Have You Been Physically Hurt by Someone Within the Past Year: No Within the Last Year, Has Anyone Forced You to Have Sexual Activity: No Have You Ever Been Emotionally Or Physically Abused by Your Partner: No Within the Last Year, Has Anyone Forced You to Have Sexual Activity: No Odessa Nagel : [birth year] Infection History Chickenpox Odessa Nagel DOB: [birth year] Anesthesia and Transfusions Prior Anesthesia or Transfusion Received: Prior general anesthesia, No prior transfusion Prior Anesthesia Reaction(s): None Prior Transfusion Reaction(s): -- Blood Transfusion Acceptable to Patient: Yes Odessa Nagel DOB: [birth year] Plan and Patient Requests Education: -- Written Plan: -- Written Plan Location: -- Oral Intake OB: -- Support Person/Gis Programmer Relationship to Pt: -- Labor Preferences: -- Non-Medicinal Pain Relief: -- Anesthesia/Pain Medication During Labor: -- Delivery Plan: -- Feeding: -- Circumcision: -- Baby For Adoption: -- Patient Requests: -- Director Market Intelligence Selected: -- Surrogate : -- Support Person's Name: -- Odessa Nagel : [birth year] Education 1st Trimester Alcohol Use -- Childbirth Classes -- Domestic Violence -- Drug Use -- Environmental Hazards -- Exercise -- Expected Course of Care -- HIV Testing -- Hospital Facilities -- Influenza Vaccine -- Nutrition Counseling -- Risk Factors Identified by History -- Routine Tests -- Safety -- Seat Belts -- Sexual Activity -- Smoking/Tobacco Use -- Social Service -- Special Diet Counseling -- Toxoplasmosis Precautions -- Travel -- Ultrasound -- Use of Any Medications -- Vaginal Discharge -- Counseling -- Weight Gain -- When to Call Health Care Provider -- Work Hazards -- 2nd Trimester Abnormal Lab Values -- Childbirth Classes -- Choosing a Care Provider -- Domestic Violence -- Influenza Vaccine -- Family Planning -- Tubal Sterilization -- Premature Labor Signs and Symptoms -- Safety -- Smoking/Tobacco Use -- Social Service -- Vaginal Discharge -- 3rd Trimester Analgesia Plans -- Anesthesia Plans -- Plan -- Breast or Bottle Feeding -- Car Seat Safety -- Childbirth Classes -- Circumcision -- Disability Forms -- Domestic Violence -- Family Medical Leave Forms -- Movement Monitoring -- Incision/Episiotomy Care -- Influenza Vaccine -- Labor Signs -- Education -- Depression -- Postterm Counseling -- Safety -- Signs, Symptoms of PIH -- Smoking/Tobacco Use -- Social Service -- Vaginal Discharge -- Counseling -- Educational Materials/Leaflets Provided No educational materials have been recorded as provided L&D Patient Education Activity Expectations -- Activity Restrictions -- Analgesia Plans -- Anesthesia Plans -- Plan -- Contractions -- Diagnostic Results -- Domestic Violence -- Drug to Drug Interactions -- Drug to Food Interactions -- Equipment/Devices -- Monitoring -- Monitoring Assessment -- Fever During -- Security -- Med Generic/Brand Name,Purpose,Action -- Med Preadministration Procedures -- Medication Dosage, Route, Scheduling -- Medication Instructions -- Medication Precautions -- Medication Side Effects -- Nutrition Counseling -- Pain Management -- Plan of Care -- Postoperative Instructions -- Premature Labor Signs and Symptoms -- Preoperative Instructions -- Reportable Symptoms -- Rupture of Membranes -- Safety -- Safety, Fall -- Seat Belts -- Sexual Activity Guideline/Restriction -- Smoking Cessation -- Surgery -- Treatments/Procedures/Tests -- Tubal Sterilization -- Ultrasound -- Unit Procedures -- Vaccinations -- Vaginal Bleeding -- Weight Gain -- Patient Education Activity Expectations -- Bladder/Bowel Function -- Breast Care -- Contact Health Care Provider -- Cramps -- Diagnostic Results -- Equipment/Devices -- Incision/Episiotomy Care -- Lochia Changes -- Med Generic/Brand Name,Purpose,Action -- Medication Dosage, Route, Scheduling -- Medication Precautions -- Nutrition Counseling -- Pain Management -- Perineal Care -- Plan of Care -- Postoperative Instructions -- Depression -- Preoperative Instructions -- Preparing Formula -- Room Orientation -- Safety -- Safety, Fall -- Sibling/Family Adjustment -- Sitz Bath -- Surgery -- Treatments/Procedures/Tests -- Unit Procedures -- Vaginal Discharge -- Odessa Nagel : [birth year] Registration and Information Race: Black or Ethnicity: Not or Marital Status: Language(s): B[place] Jehovah'S Witness Preference(s): -- Occupation/Education: [employer] (Non Prsdntl) Address, Phone, and Health Plans Home Address: [address] [place] [phone] (Home), --, -- Health Plans: 1 - 311 [employer] - AD Fam Mbkatheryn Member/Group: [id number] Deductible: $ -- Type: [employer]D/S[employer] Address: [address] [place] [address] Phone: [phone] 2 - 602 Direct Care and Mail Order and Retail Pharm Member/Group: [id number] Deductible: $ -- Type: DoD/ Address: [address] [place] [address] Phone: [phone] 3 - 000: M - No health care Cvrg plan (transfer records only) Member/Group: [id number] Deductible: $ -- Type: Self Pay Address: [address] [place] [address] Phone: [phone] 4 000: P - No health care Cvrg plan (transfer records only) Member/Group: [id number] Deductible: $ -- Type: Self Pay Address: [address] [place] [address] Phone: [phone] General Information OB Provider(s) Information: Not explicitly recorded. May be noted in encounter section below. See below for detailed information for all visits and information. Delivery Center/Hospital Information: -- Provider Information: -- Referring Provider Information: KAYLEE ARNDT Primary Provider Information: AURY NUNN /Partner Information: -- -- Support Person Information: -- Planned/Unplanned : -- Date Consent Signed for Tubal Ligation: -- Date Record Sent to Hospital: -- Odessa Nagel : 89 Visits and Encounters (Known encounters since 05/29/2019. May include lab encounters.) Date Location Provider Type Medical Service 04/10/2020 [id number] -- 03/01/2020 [id number]-[id number]-JNKAYLEE COATS [facility] Obstetrics/Gynecology 02/29/2020 [id number] ARNDT, [facility] Obstetrics/Gynecology 02/28/2020 [id number] ARNDT, [facility] Obstetrics/Gynecology 02/24/2020 [id number] ARNDT, [facility] Obstetrics/Gynecology 02/18/2020 [id number]-SPIVW-WI MEMO AGUERO PA [facility] Obstetrics/Gynecology 02/10/2020 [id number]-CARFW-[id number] LOWELL, MINDY [facility] Obstetrics/Gynecology 01/14/2020 [id number]-QESYC-ZL MEMO AGUERO PA [facility] Obstetrics/Gynecology 12/17/2019 [id number]-VKMIR-WX ALDRIDGE, [facility] Injections-Immunizations 12/17/2019 [id number]-WWUFK-UQ EVELIN ACOSTA [facility] Obstetrics/Gynecology 11/19/2019 [id number]-NJS-CJMEMO WHITTINGTON [facility] Outpatient Laboratory 11/16/2019 [id number]-RTH-NJMEMO WHITTINGTON [facility] Outpatient Laboratory 11/15/2019 [id number]-ODM-YOREW CHANDLER YOON Outpatient Radiology/Imaging Services 11/12/2019 [id number]-PQR-AYMEMO WHITTINGTON [facility] Outpatient Laboratory 11/09/2019 [id number]-CVYU [facility] [place] [facility] Department/Family Medicine 11/08/2019 [id number] -- Between Visit -- 11/05/2019 [id number]-XQRJR-YP MEMO AGUERO PA [facility] Obstetrics/Gynecology 11/01/2019 [id number]-[id number] [facility] [place] Emergency Department/Family Medicine 10/29/2019 [id number] -- Between Visit -- 10/29/2019 [id number] -- Between Visit -- 10/18/2019 1861K-UFX-TISZK [facility] Outpatient Radiology/Imaging Services 09/29/2019 [id number] -- Between Visit -- 09/23/2019 [id number]-AVRSE-FG CHANDLER YOON [facility] Obstetrics/Gynecology 09/21/[address] [facility] Urgent Care 09/20/2019 [id number] -- Between Visit -- 08/10/2019 [id number]-DAPSJ-HY GENEVIEVE ALDRIDGE [facility] Injections-Immunizations 08/10/20190289D-FCKAO-XM MINDY ETIENNE [facility] Obstetrics/Gynecology 07/26/20193182U-ICIAZ-KJ MEMO AGUERO PA [facility] Obstetrics/Gynecology 07/20/2019 [id number] -- Referral Tracking Defer to Network 07/14/2019 [id number]-QLCOP-MF HERIBERTO ASHLEY LPN [facility] Obstetrics/Gynecology 07/05/2019 [id number] -- Between Visit -- 07/02/2019 [id number]-ZFR-RXCHANDLER RODRIGUEZ Outpatient Laboratory 07/02/2019 [id number] -- Between Visit -- 06/28/2019 [id number]-FE4-SFCPAURY MURO [facility] Primary Care/Family Medicine Odessa Nagel : 89 Visit / Encounter Location Information The following information represents known location and contact information for locations visited during [facility] Address: [address] [place] [address] Phone:[phone] ([address]) [facility] Address: No addresses found on file for location Phone: No phone numbers found on file for location Odessa Nagel : 89 Visit Diagnosis (Note: All diagnoses documented since 05/29/2019) 02/24/20 - 38 weeks gestation of (ICD-10-CM: Z3A.38, Date: 02/24/20) 02/24/20 - Excessive weight gain in , unspecified trimester (ICD-10-CM: O26.00, Date: 02/24/20) 02/18/20 - 37 weeks gestation of (ICD-10-CM: Z3A.37, Date: 02/18/20) 02/10/20 - state, incidental (ICD-10-CM: Z33.1, Date: ) 02/10/20 - state, incidental (ICD-10-CM: Z33.1, Date: 02/10/20) 02/10/20 - 36 weeks gestation of (ICD-10-CM: Z3A.36, Date: 02/10/20) 01/14/20 - 32 weeks gestation of (ICD-10-CM: Z3A.32, Date: ) 01/14/20 - 32 weeks gestation of (ICD-10-CM: Z3A.32, Date: 01/14/20) 12/17/19 - Encounter for immunization (ICD-10-CM: Z23, Date: 12/17/19) 12/17/19 - state, incidental (ICD-10-CM: Z33.1, Date: ) 12/17/19 - state, incidental (ICD-10-CM: Z33.1, Date: 12/17/19) 11/12/19 - state, incidental (ICD-10-CM: Z33.1, Date: 11/12/19) 11/09/19 - Cellulitis, unspecified (ICD-10-CM: L03.90, Date: ) 11/09/19 - Cellulitis, unspecified (ICD-10-CM: L03.90, Date: 11/09/19) 11/05/19 - 22 weeks gestation of (ICD-10-CM: Z3A.22, Date: ) 11/05/19 - 22 weeks gestation of (ICD-10-CM: Z3A.22, Date: 11/05/19) 11/01/19 - Seborrhea capitis (ICD-10-CM: L21.0, Date: ) 11/01/19 - Rash and other nonspecific skin eruption (ICD-10-CM: R21, Date: ) 11/01/19 - Allergic rhinitis, unspecified (ICD-10-CM: J30.9, Date: ) 11/01/19 - Allergic rhinitis, unspecified (ICD-10-CM: J30.9, Date: 11/01/19) 11/01/19 - Seborrhea capitis (ICD-10-CM: L21.0, Date: 11/01/19) 11/01/19 - Rash and other nonspecific skin eruption (ICD-10-CM: R21, Date: 11/01/19) 09/23/19 - Encounter for supervision of other normal , second trimester (ICD-10-CM: Z34.82, Date: ) 09/23/19 - 16 weeks gestation of (ICD-10-CM: Z3A.16, Date: ) 09/23/19 - Encounter for supervision of other normal , second trimester (ICD-10-CM: Z34.82, Date: 09/23/19) 09/23/19 - 16 weeks gestation of (ICD-10-CM: Z3A.16, Date: 09/23/19) 09/21/19 - Unspecified blepharitis left upper eyelid (ICD-10-CM: H01.004, Date: ) 09/21/19 - Unspecified blepharitis left upper eyelid (ICD-10-CM: H01.004, Date: 09/21/19) 09/20/19 - Candidiasis of vulva and vagina (ICD-10-CM: B37.3, Date: 09/20/19) 08/10/19 - Underimmunization status (ICD-10-CM: Z28.3, Date: 08/10/19) 08/10/19 - state, incidental (ICD-10-CM: Z33.1, Date: 08/10/19) 08/10/19 - Nausea (ICD-10-CM: R11.0, Date: 08/10/19) 07/26/19 - 8 weeks gestation of (ICD-10-CM: Z3A.08, Date: ) 07/26/19 - 8 weeks gestation of (ICD-10-CM: Z3A.08, Date: 07/26/19) 07/20/19 - Encounter for full-term uncomplicated delivery (ICD-10-CM: O80, Date: ) 07/20/19 - state, incidental (ICD-10-CM: Z33.1, Date: 07/20/19) 07/14/19 - state, incidental (ICD-10-CM: Z33.1, Date: ) 07/14/19 - state, incidental (ICD-10-CM: Z33.1, Date: 07/14/19) Odessa Nagel : 89 Delivery Summary Baby A Monitoring FHR Monitoring Method: Hand held doppler Note: Items documented with '--' had no clinical data which qualified at time of report creation END OF REPORT Extracted from:Title: OB Visit Note Author: KAYLEE ARNDT Date: 02/24/20 1. E xcessive weight gain in cardiac activity within acceptable limits Fundal height is appropriate VS within normal limits Weight gain is excessive Labs are up to date and within acceptable limits: GBS negative 10 FEBRUARY 2020 Varicella and Rubella Immune x2. s/p Flu shot a nd TdaP. Will discuss Gardasil series Aneuploidy screen and CF Low Risk PAP follow-up Structural Survey without anomaly/soft marker or previa Med rec completed with no refills requested PNV with DHA Labor precautions known to patient PIH precautions known to patient movement awareness known to patient Contraception: Mirena IUD planned Cephalic presentation confirmed Follow-up for IOL at 39 weeks Ordered: [id number] - Clinic New Level 1 Weight Recorded 2. G estation period, 38 weeks Addendum by KAYLEE ARNDT on February 24, 2020 16:12:41 PDT see above Extracted from:Title: 37 weeks OB Visit Note Author: MEMO AGUERO PA Date: 02/18/20 Ordered: Bile Acids,Fractionated LCMS [id number] Comprehensive Metabolic Panel 1. Gestation period, 37 weeks 2 7 Years y o : 2 Para: 1 Para Premature: 0 Para Full Term: 1 Para Abortions: 0 Living Children History: 1 Ectopic Pregnancies History: 0 Spontaneous Abortions Hx: 0 Induced Abortions History: 0 Multiple Births History: 0 @ 37w6d b y L MP with uncomplicated -Normal FHTs and fundal height today - NOB labs WNL, no f/u indicated - CF n egative, low risk - SIS negative, l ow risk - Rh positive, rhogam not indicated - EPDS is normal, no follow-up required - 20 wk survey u/s WNL, but limited eval of outflow tracts, f/u US - normal outflow tracts -Discussed bleeding/cramping, labor, PIH p recautions -FKC known to pt -HBA i nfo received -varicella and rubella immune -flu vaccine a nd Tdap received -3rd tri labs WNL except for failed 1 hr gtt, 3hr gtt w ith one abnormal one borderline, not GDM but encouraged healthy eating/exercise habits -Plans to BF, has pump -Mirena IUD as pp contraception -SVE /-2 IOL scheduled -F/u i n 1 week a nd PRN 2. Itching of feet w/o rash CMP and bile acids today ICP s/sx discussed and to present to [facility] if occur - strict precautions f/u next week with OBGYN 3. N ormal in multigravida Extracted from:Title: OB Visit Note Author: MINDY ETIENNE Date: 02/10/20 1. P regnant -Normal FHTs and fundal height today -Confirmed vertex on limited OB ultrasound today -TDaP and Flu vaccines - received -Discussed labor and bleeding precautions -Discussed kick counts -Discussed after delivery -Discussed contraception after delivery -Completed HBA class in preparation for delivery -Follow-up at L&D for any issues after hours -F/u at 38 weeks - Considering IOL 39-41wga -GBS pending Gestation period, 36 weeks Ordered: Group B Strep Culture MA/Nurse Collect Extracted from:Title: 32 weeks OB Visit Note Author: MEMO AGUERO PA Date: 01/14/20 1. Gestation period, 32 weeks 2 7 Years y o : 2 Para: 1 Para Premature: 0 Para Full Term: 1 Para Abortions: 0 Living Children History: 1 Ectopic Pregnancies History: 0 Spontaneous Abortions Hx: 0 Induced Abortions History: 0 Multiple Births History: 0 @ 36w6d b y L MP with uncomplicated -Normal FHTs and fundal height today - NOB labs WNL, no f/u indicated - CF n egative, low risk - SIS negative, l ow risk - Rh positive, rhogam not indicated - EPDS is normal, no follow-up required - 20 wk survey u/s WNL, but limited eval of outflow tracts, f/u US - normal outflow tracts -Discussed bleeding/cramping, PTL, PIH p recautions -FKC known to pt -HBA i nfo received -varicella and rubella immune -flu vaccine a nd Tdap received -3rd tri labs WNL except for failed 1 hr gtt, 3 hr gtt w ith one abnormal one borderline, not GDM but encouraged healthy eating/exercise habits -Plans to BF, has pump -Mirena IUD as pp contraception -F/u at 36wks and PRN 2. N ormal in multigravida 3. RLP, intermittent belly band given to pt Addendum by MEMO AGUERO PA on January 14, 2020 16:11:45 PDT No indicators of p ossible COVID 19 including: No recent travel, contacts or symptoms. Current Covid 19 recommendations reviewed. Extracted from:Title: IMMUNIZATION-TDaP Author: MIKAYLA GRIFFIN Date: 12/17/19 Adult Immunization Screening Questionnaire 1. Are you sick today? (NO) 2. Do you have allergies to medications, food, a vaccine component, or latex? (NO) 3. Have you ever had a serious reaction after receiving a vaccination? (NO) 4. Do you have a long-term health problem with heart disease, lung disease, asthma, kidney disease, metabolic disease (e.g. diabetes), anemia, or other blood disorder? Are you on long-term aspirin therapy? (NO) 5. Do you have cancer, leukemia, HIV/AIDS, or any other immune system problem? (NO) 6. In the past 3 months, have you taken medications that weaken your immune system, such as cortisone, prednisone, other steroids, or anticancer drugs, or have you had radiation treatments? (NO) 7. Have you had a seizure or a brain or other nervous system problem? (NO) 8. During or in the past year, have you received a transfusion of blood or blood products, or been given immune (gamma) globulin or an antiviral drug? (NO) 9. For women: Are you or is there a chance you could become during the next month? (YES) Have you received any vaccinations in the past 4 weeks? (NO) Patient in clinic for immunizations. Vaccine information reviewed with patient and VIS was given. Medications were reviewed and allergies verified. No ASE to vaccine noted prior to patient leaving clinic. Patient was given GIVEN BY: Maria A ZUÑIGA Vaccine Name: T dap (Boostrix) Dosage: 0 .5 m l LOT #:([id number] ? Expiration Date: ( 04/15/2021) Location: ( LEFT) d eltoid Route: IM VIS: 11/01/2014 Extracted from:Title: OB 28+6 Visit Note Author: DAVE EVELIN MARTINEZ CONI Date: 12/17/19 1. P regnant 29 Years y o G ravida: 2 P alley: 1 P alley Premature: 0 P alley Full Term: 1 P alley Abortions: 0 L iving Children History: 1 E ctopic Pregnancies History: 0 S pontaneous Abortions Hx: 0 I nduced Abortions History: 0 M ultiple Births History: 0 @ 16w5d b y L MP with uncomplicated - screening: S IS2 n egative, low risk -20 wk survey u/s WNL, but limited eval of outflow tracts, f/u US with normal view of outflow tracts -Discussed bleeding/cramping, PTL, PIH p recautions -varicella and rubella immune -flu vaccine received, advised Tdap today -3rd tri labs - failed 1hr, 3hr with one abnormal one borderline, not GDM but encouraged healthy eating/exercise habits -HBA handout given today (no classes 2/2 Covid-19) and explained how to get breast pump -F/u at 32wk Ordered: [id number] - Clinic Est Level 3 Subsequent Care Visit [id number] Extracted from:Title: Toe pain Author: AURY NUNN Date: 11/09/19 1. C ellulitis L ocalized cellulitis without drainable abscess at base of left great toe, recommend hot water soaks for 15-20 minutes to encourage drainage, may apply topical antibacterial when draining, should f/u if noting spreading redness, increased toe pain despite attempts to drain. Orders: mupirocin topical, 1 appl(s), Topical, TID, # 22 g, 0 total refill(s), Acute, [facility]) [No refills remaining] [id number] - Clinic Est Level 3 Extracted from:Title: 22 weeks OB Visit Note Author: MEMO AGUERO PA Date: 11/05/19 Gestation period, 22 weeks 1 . G estation period, 16 weeks 29 Years y o G ravida: 2 P alley: 1 P alley Premature: 0 P alley Full Term: 1 P alley Abortions: 0 L iving Children History: 1 E ctopic Pregnancies History: 0 S pontaneous Abortions Hx: 0 I nduced Abortions History: 0 M ultiple Births History: 0 @ 16w5d b y L MP with uncomplicated -Reviewed screening: S IS2 n egative, low risk -20 wk survey u/s WNL, but limited eval of outflow tracts, ordered f/u US -Discussed bleeding/cramping, PTL, PIH p recautions -varicella and rubella immune -flu vaccine advised, Tdap when appropriate -SIS screening neg, low risk -3rd tri labs ordered between 24-28 weeks -F/u at 28wk 2. N ormal in multigravida discussed making arrangements for care for 5 y/o during delivery Ordered: *Glucose Level 1 Hour CBC w/ Diff RPR [id number] Urinalysis with Culture if Indicated Urine Culture Extracted from:Title: Skin and allergy concerns Author: AURY NUNN Date: 11/01/19 1. R matthew M ild dermatitis noted, will trial course of topical steroid, advised to short course of treatment limited to area of rash on back. F/u if not improving. P t in agreement w ith plan 2. A llergic rhinitis A dvised on use of anthistamine for sinus congestion. 3. D andruff D iscussed use of OTC Selsun blue if current regimen does not maintain effectiveness. Orders: loratadine, 1 tab(s), Oral, Daily, PRN allergy symptoms, # 90 tab(s), 3 total refill(s), Maintenance, [facility] pharmacy dispense (Rx) [Not filled] triamcinolone topical, 1 appl(s), Topical, BID, apply a thin film to affected area, X 14 days, # 15 g, 0 total refill(s), Acute, [facility] (Rx) [Not filled] [id number] - Clinic Est Level 3 Extracted from:Title: 16w5d OB Visit Note Author: CHANDLER YOON Date: 09/23/19 1. G estation period, 16 weeks 2 7 Years y o : 2 Para: 1 Para Premature: 0 Para Full Term: 1 Para Abortions: 0 Living Children History: 1 Ectopic Pregnancies History: 0 Spontaneous Abortions Hx: 0 Induced Abortions History: 0 Multiple Births History: 0 @ 16w5d by Arthur MP withuncomplicated -Reviewed screening: SIS2 today -Ordered 20 wk survey u/s -Discussed bleeding/cramping precautions -F/u at 22wk - Discussed use of probiotics, limiting sugar intake, increasing complex fiber to improve gut microbiome that will decrease the risk of bacterial vaginosis overgrowth. F/u if new symptoms and consider further testing. Ordered: multivitamin, , 1 tab(s), Oral, Daily, # 90 tab(s), 0 total refill(s), Maintenance, [facility] dispense (Rx) [Not filled] Serum Integrated 2 [id number] OB 2nd/3rd Trimester Survey 2. N ormal in multigravida Ordered: multivitamin, , 1 tab(s), Oral, Daily, # 90 tab(s), 0 total refill(s), Maintenance, [facility] dispense (Rx) [Not filled] Orders: Subsequent Care Visit [id number] Chandler Yoon MD, RAYMUNDO, [facility], Family Medicine Physician / [employer] Extracted from:Title: Office Clinic Note- Blepharitis Author: MILY PRINCE Date: 09/21/19 1. B lepharitis of left eyelid P t has swelling of the left upper eyelid with slight excoriation likely from scratching, there is erythema present and no drainage the conjunctiva is normal. Will treat for blepharitis. recommend warm compresses and clean with baby shampoo and no contacts till done with treatment. Pt is 16 weeks and has follow up on for yeast infection that was treated with diflucan by [facility]. Ordered: azithromycin, see instructions, take 2 tablets today then 1 tablet daily for 4 days, # 6 tab(s), 0 total refill(s), Acute, 09/27/2019, [facility] pharmacy dispense (Rx) [No refills remaining] erythromycin ophthalmic, 1 appl(s), Eye-Both, QID, # 3.5 g, 0 total refill(s), Acute, [facility] (Rx) [No refills remaining] Orders: Office Visit Level 3 Est [id number] Extracted from:Title: Ambulatory Patient Education Author: MILY PRINCE ARIANE Date: 09/21/19 Patient Education Materials Follows: Blepharitis Blepharitis is redness, soreness, and swelling (inflammation) of one or both eyelids. It may be caused by an allergic reaction or a bacterial infection. Blepharitis may also be associated with reddened, scaly skin (seborrhea) of the scalp and eyebrows. While you sleep, eye discharge may cause your eyelashes to stick together. Your eyelids may itch, burn, swell, and may lose their lashes. These will grow back. Your eyes may become sensitive. Blepharitis may recur and need repeated treatment. If this is the case, you may require further evaluation by an regulatory law specialist (commercial driver's license driver). HOME CARE INSTRUCTIONS Keep your hands clean. Use a clean towel each time you dry your eyelids. Do not use this towel to clean other areas. Do not share a towel or makeup with anyone. Wash your eyelids with warm water or warm water mixed with a small amount of baby shampoo. Do this twice a day or as often as needed. Wash your face and eyebrows at least once a day. Use warm compresses 2 times a day for 10 minutes at a time, or as directed by your caregiver. Apply antibiotic ointment as directed by your caregiver. Avoid rubbing your eyes. Avoid wearing makeup until you get better. Follow up with your caregiver as directed. SEEK IMMEDIATE MEDICAL CARE IF: You have pain, redness, or swelling that gets worse or spreads to other parts of your face. Your vision changes, or you have pain when looking at lights or moving objects. You have a fever. Your symptoms continue for longer than 2 to 4 days or become worse. MAKE SURE YOU: Understand these instructions. Will watch your condition. Will get help right away if you are not doing well or get worse. Document Released: 08/22/2001 Document Revised: 11/16/2012 Document Reviewed: 10/02/2011 ExitCare Patient Information 2 [employer]. This information is not intended to replace advice given to you by your health care provider. Make sure you discuss any questions you have with your health care provider. Extracted from:Title: Immunizations Author: HAROLDO SIMON Date: 08/10/19 influenza virus vaccine, inactivated: 0.5 mL (08/10/19 13:46:00) Immunization history reviewed for immunization status, allergy status verified during this encounter. Screening form reviewed, no contraindications to vaccine found, patient provided with homecare instructions, patient verbalized understanding of instructions. Time out performed, patient tolerated procedure well, patient advised to wait 15 minutes for observation, no adverse reactions were reported and patient left the clinic in stable condition. Extracted from:Title: OB Visit Note Author: MINDY ETIENNE Date: 08/10/19 1. N ausea present U nisom q day 2. P regnant - Labs normal - Discussed bleeding precautions in early and to f/u in the ED for any bleeding - Recommend f/u at 16weeks - Discussed counseling on: -the use of seat belts and air bags -recommended limiting fish consumption to <12 ouces/week; no uncooked meat; no unpasteurized dairy products; thoroughly washing fruits and vegetables -recommended limiting caffeine to 200 mg/day -appropriate weight gain during : * 28-40 lbs for underweight women (BMI <18.5) * 25-35 lbs for normal weight women (BMI 18.5-24.9) * 15-25 lbs for overweight women (BMI 25-29.9) *11-20 lbs for obese women (BMI >29.9) -No alcohol, tobacco, illicit drugs -Infection precautions - recommend influenza vaccine, avoid contact with rodents, be careful around animals; toxoplasmosis, CMV, listeria, and foodborne infections -Discussed and recommended to continue with exercise - moderate exercise 30 minutes/day at least 3-4 days per week; remember to hydrate well during exercise -Discussed sexual activity: OK in the absence of bleeding or complication -Discussed travel - increased risk of DVT with prolonged sitting; infectious diseases in foreign countries -Discussed medication use - Tylenol for pain, fever, and headache; avoid NSAIDs after 28 weeks. -Discussed baseline defects - 2% baseline -Discussed bleeding and miscarriage precautions -Discussed Screening: Maternal Serum Analyte Screening: We discussed that this test is optional. It is a screening test. The test is not diagnostic. The test is designed to screen for Down Syndrome, Trisomy 18 and open neural tube defects. I offered Integrated Screen (1st trimester serum AZEB-A, ultrasound for nuchal translucency, and 2nd serum HCG, AFP, inhibin-A, and unconjugated estriol) vs. Serum Intergrated screen (all the serum test without the nuchal translucency); the screening is designed to screen for Down syndrome (88-92%), neural tube defects (65-80%) - such as spina bifida and anencephaly, and trisomy 18 (90%). If the test shows an elevated risk, further testing would be offered (Comprehensive ultrasound and possible amniocentesis). Chromosome abnormalities cannot be diagnosed by maternal serum screening or ultrasound. Amniocentesis may be necessary to confirm the diagnosis. There are also false negative results meaning that the test cannot completely rule out Down syndrome, Trisomy 18 or an open neural tube defect. If elected, first trimester screen (serum screening +/- NT) is done between 10- 13.9 weeks; then second trimester serum screening is done between 15-21.9 weeks. If she missed the screening window for the first trimester, then QUAD screen can be ordered between 15-22.9 weeks. - Patient desires testing SIS #1 ordered -BF Contraception: ?? - F/u in 6 weeks or prn Ordered: Serum Integrated 1 [id number] Extracted from:Title: Dating US OB Visit Note Author: MEMO AGUERO PA Date: 07/26/19 8 weeks gestation of 29 y /o currently at 8+2 wga confirmed by US. EDC date 03/04/20 by LMP. ROS neg other than continuous N. Add vit b6 tid per orders. Recent UA neg. + FCA 1 69 bpm. CF screen negative. Aneuploidy screening to be offered at [facility] appt. F/U at [facility] as scheduled. SAB precautions. Orders: pyridoxine, See Instructions, 1/2 tab PO TID for Nausea, # 60 tab(s), 0 total refill(s), Acute, [facility] dispense (Rx) [No refills remaining] Office Visit Level 3 Est [id number] Transvaginal Us,Obstetric [id number] 04/28/2025 Unknown Organization Functional Status Combined list of recent functional and cognitive assessments recorded at [facility] [employer] [facility] [employer] [facility]VA Functional [place] Measurement (FIM) Scale: 1 = Total Assistance (Subject = 0% +), 2 = Maximal Assistance (Subject = 25% +), 3 = Moderate Assistance (Subject = 50% +), 4 = Minimal Assistance (Subject = 75% +), 5 = Supervision, 6 = Modified [place] (Device), 7 = Complete [place] (Timely, Safely). Assessment Date/Time Source Assessment Type Assessment Skill Assessment Score Assessment Details No data available for this section
--- OUTSIDE RECORDS SUMMARY | 2025-04-28 09:10 | XMS_ITS | Encounter Summary ---
Author Organization [employer] Address [address] [place] [address] Care Team Providers Care Sheet Pile Hammer Operator Name Role Phone Unavailable Primary Care Provider Unavailabl e Encounter Details Date Type Department Care Team (Late st Contact Info) Description 04/26/2025 External Device Data [facility] ABSTRACTION Provider, Abstract NO ADDRESS ON FILE Social History Tobacco Use Types Packs/Day Years Used Date Smoking Tobacco: Never Assessed Comments Unknown Sex and Gender Information Value Date Recorded Sex Assigned at Not on file Legal Sex Female 11:45 AM CDT Gender Identity Not on file Sexual Orientation Not on file documented as of this encounter Plan of Treatment Not on file documented as of this encounter Visit Diagnoses Not on filedocumented in this encounter
--- OUTSIDE RECORDS SUMMARY | 2025-04-28 09:10 | XMS_ITS | Clinical Summary ---
Author Organization [facility] [address] - [address] [facility] [address] [place] [address] Phone Care Team Providers Care Assembly Machine Tool Setter Name Role Phone Unavailable Primary Care Provider Unavailabl e Encounters Date Type Department Care Team Description 04/27/2025 External Device Data [facility] ABSTRACTION Provider, Abstract 04/26/2025 External Device Data [facility] ABSTRACTION Provider, Abstract 04/13/2025 External Device Data [facility] ABSTRACTION Provider, Abstract 04/12/2025 External Device Data [facility] ABSTRACTION Provider, Abstract 03/23/2025 External Device Data [facility] ABSTRACTION Provider, Abstract 03/22/2025 External Device Data [facility] ABSTRACTION Provider, Abstract 03/08/2025 External Device Data [facility] ABSTRACTION Provider, Abstract 03/08/2025 External Device Data [facility] ABSTRACTION Provider, Abstract 03/08/2025 External Device Data [facility] ABSTRACTION Provider, Abstract [...] Health Maintenance Due Date Last Done Comments HPV VACCINES (1 - 3-dose series) 2007 HPV/Cotest (21-29) 2013 CERVICAL CANCER SCREENING 2022 HPV/Cotest (30-65) 2022 PAP SMEAR 2022 INFLUENZA VACCINE (#1) 2025 08/10/2019 DTAP/TDAP/TD VACCINES (3 - T d or Tdap) 12/16/2029 12/17/2019, 04/15/2006 HEPATITIS B VACCINES Completed 04/17/2002, 05/31/1997, 04/28/1997 Insurance [facility] [employer] CHO[employer]
--- OUTSIDE RECORDS SUMMARY | 2025-04-28 09:10 | XMS_ITS | Clinical Summary ---
Author Organization [facility] Address [address] [place] [address] Care Team Providers Care Vamp Liner Name Role Phone Treva Salazar MD Primary Care Provider [phone] Source Comments [facility],non-owned Affiliates and Associated Physician Practices is amultiple site organization consisting of ambulatory clinics and hospital sitesin [place], [place], [place] and [place]. This disclosure is being madepursuant to the Care Everywhere program and may not contain all information available regarding this patient. Last updated 18.[facility] Allergies No known active allergies Medications * Be aware that medications may not be up to date on this document. Alwaysverify current medications with the patient. Norethindrone Acet-Ethinyl Est (LOESTRIN 09/27, , PO) once daily. 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 Gender Identity Not on file Sexual Orientation [...] 04/15/2016 04/15/2006, 04/28/1997, 12/05/1993, Additional history exists HPV VACCINE (1 - 3-dose SCDM series) 2019 COVID-19 VACCINE ( season) 2024 DEPRESSION SCREENING 09/08/2024 INFLUENZA VACCINE (#1) 2025 ZOSTER VACCINE (1 of 2) 2042 HIB VACCINE Completed 12/05/1993, 02/07, 01/03/1993, Additional history exists HEPATITIS B VACCINE Completed 04/17/2002, 05/31/1997, 04/28/1997 MENINGOCOCCAL (Group B) VACCINE SHARED DECISION-MAKING Aged Out No longer eligible based on patient's age to complete this topic MENINGOCOCCAL GROUPS A/C/Y/W VACCINE Aged Out No longer eligible based on patient's age to complete this topic PNEUMOCOCCAL VACCINE Aged Out No long er eligible based on patient's age to complete this topic Insurance [employer] Member Subscriber Plan / Payer (Ef fective for All Dates) Name:Gilma Hogan Member ID:[id number] Relation to Subscriber:Child Name:EDISONJANKISCAR Shannan Subscriber ID:[id number] Date of :1964 (Home) [facility] [place] [address] Payer ID:Not on file Type:PPO Address: [place] [phone] Care Teams Vamp Liner Relationship Specialty Start Date End Date Treva Salazar MD PCP - General Pediatrics 12/09/11
--- OUTSIDE RECORDS SUMMARY | 2025-04-28 09:10 | XMS_ITS | Encounter Summary ---
Author Organization [facility] [facility] Address [address] [place] [address] Care Team Providers Care Body Design Checker Name Role Phone Unavailable Primary Care Provider Unavailabl e Encounter Details Date Type Department Care Team (Late st Contact Info) Description 04/27/2025 External Device Data [facility] ABSTRACTION [...]
== END 2025-04-28 08:54 | disposition home or self-care (01) ==
LOC: ANHGOSHLAB 08:55
PROVIDERS: PCP Clinical Nurse Specialist; Visit Provider Nurse Practitioner Obstetrics & Gynecology
DX: O24.419 Gestational diabetes mellitus in pregnancy, unspecified control (principal); Z3A.00 Weeks of gestation of pregnancy not specified
CPT/HCPCS: 36415; 82947

== ENCOUNTER 2025-06-10 09:40 | Outpatient (CLI) | payer BC, SELFPAY ==
--- OUTSIDE RECORDS SUMMARY | 2025-06-10 09:48 | XMS_ITS | Clinical Summary ---
Author Organization [facility] [employer] Address [address] [place] [address] Care Team Providers Care Splicing Supervisor Name Role Phone Treva Salazar MD Primary Care Provider [phone] Source Comments [facility] [employer],non-owned Affiliates and Associated Physician Practices is amultiple site organization consisting of ambulatory clinics and hospital sitesin [place], [place], [place] and [place]. This disclosure is being madepursuant to the Care Everywhere program and may not contain all information available regarding this patient. 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 Gender Identity Not on file Sexual Orientation [...] VACCINE (1 - 3-dose SCDM series) 2019 DEPRESSION SCREENING 09/08/2024 COVID-19 VACCINE ( season) 2025 INFLUENZA VACCINE (#1) 2025 ZOSTER VACCINE (1 [...] patient's age to complete this topic Insurance [employer] Member Subscriber Plan / Payer (Ef fective for All Dates) Name:Gilma Hogan Member ID:[id number] Relation to Subscriber:Child Name:EDISONSCAR Shannan Subscriber ID:[id number] Date of :1964 (Home) [facility]: [facility] [place] [address] Payer ID:Not on file Type:PPO Address: [place] [phone] Care Teams Splicing Supervisor Relationship Specialty Start Date End Date Treva Salazar MD PCP - General Pediatrics 12/09/11
--- OUTSIDE RECORDS SUMMARY | 2025-06-10 09:48 | XMS_ITS | Clinical Summary ---
Author Organization [employer] [address] [facility] [address] [place] [address] Phone Care Team Providers Care Department Head Name Role Phone Unavailable Primary Care Provider Unavailabl e Encounters Date Type Department Care Team Description 05/25/2025 External Device Data [facility] ABSTRACTION Provider, Abstract 04/27/2025 External Device Data [facility] ABSTRACTION Provider, [...] Date Last Done Comments HPV/Cotest (21-29) 2013 HPV VACCINES (1 - 3-dose SCD M series) 2019 CERVICAL CANCER SCREENING 2022 HPV/Cotest (30-65) 2022 PAP SMEAR 2022 INFLUENZA VACCINE (#1) 2025 08/10/2019 DTAP/TDAP/TD VACCINES (3 - T d or Tdap) 12/16/2029 12/17/2019, 04/15/2006 HEPATITIS B VACCINES Completed 04/17/2002, 05/31/1997, 04/28/[address] [facility] ACC[facility] CHO[facility]
[2025-06-10 12:52] LABS: Hematocrit 38.5 % (37.0-47.0); Hemoglobin 12.8 g/dL (12.0-15.0); Immature Granulocyte Percent A 0.3 % (0-0.5); Lymphocytes Absolute Auto 2.99 K/mm3 (0.9-3.2); Mean Corpuscular HGB Conc 33.2 g/dl (32-36); Mean Corpuscular Hemoglobin 28.4 pg (26-34); Mean Corpuscular Volume 85.4 fl (80-100); Nucleated Red Blood Cells Absolute Auto 0.000 K/mm3 (0.0-0.012); Nucleated Red Blood Cells Perc 0.0 % (0.0-0.2); Platelet Count Result 387 k/mm3 (150-375); Red Blood Count 4.51 M/mm3 (4.2-5.4); White Blood Count 6.8 K/mm3 (4.5-10.0)
[2025-06-10 13:21] LABS: MALB Creatinine Ratio 5.9 mg/g (0-30)
[2025-06-10 13:24] LABS: Hemoglobin A1C 6.1 % (<5.7)
[2025-06-10 13:58] LABS: Alanine Aminotransferase 35 U/L (6-35); Albumin Level 4.6 g/dL (3.5-5.1); Alkaline Phosphatase 105 U/L (38-126); Anion Gap 8 mmol/L (4-12); Aspartate Amino Transferase 42 U/L (14-36); Bilirubin,Total 1.2 mg/dL (0.2-1.3); Blood Urea Nitrogen 15 mg/dL (7-17); Calcium 9.1 mg/dL (8.4-10.2); Carbon Dioxide 28 mmol/L (22-30); Chloride 102 mmol/L (98-107); Estimated Glomerular Filt Rate > 60; Glucose 91 mg/dL (65-110); Potassium 4.0 mmol/L (3.4-5.0); Sodium 138 mmol/L (137-145); Total Protein 8.0 g/dL (6.3-8.2)
[2025-06-10 14:33] LABS: Thyroid Stimulating Hormone 1.030 uIU/mL (0.465-4.680)
== END 2025-06-10 09:41 | disposition home or self-care (01) ==
LOC: ANHGOSHLAB 09:41
PROVIDERS: PCP Internal Medicine; Visit Provider Clinical Nurse Specialist
DX: O24.419 Gestational diabetes mellitus in pregnancy, unspecified control (principal); D64.9 Anemia, unspecified; R53.83 Other fatigue; Z3A.00 Weeks of gestation of pregnancy not specified
CPT/HCPCS: 36415; 80053; 82043; 83036; 84443; 85025